=== PATIENT | female | born 2000 | race Caucasian/White ===

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

== ENCOUNTER 2022-01-05 20:41 | Emergency (ER) | payer OTHER, SELFPAY ==
--- NOTE | ~2022-01-05 | XR_ITS ---
EXAMINATION: XR chest 1V portable EXAM DATE: 01/05/2022 21:43 INDICATION: CP TECHNIQUE: Portable AP frontal chest x-ray was obtained. There is no prior study for comparison. FINDINGS: The lungs are clear. There are no pleural effusions. The cardiomediastinal silhouette is within normal limits. There is no pneumothorax suspected. The bones and soft tissues are unremarkab le. IMPRESSION: No acute cardiopulmonary findings. Reviewed, dictated and finalized at location [facility]. E INSPECTOR
[2022-01-05 20:45] VITALS: BP 129/80; PULSE 89; RESP 15; TEMP 36.9; O2SAT 100
--- NOTE | 2022-01-05 21:04 | ECG_ITS ---
Measurements Intervals [place] Rate: 77 P: 48 DC: 146 QRS: 68 QRSD: 80 T: 36 QT: 356 QTc: 404 Interpretive Statements SINUS RHYTHM INCOMPLETE RIGHT BUNDLE BRANCH BLOCK MINIMAL Q WAVES- INF/LAT LEADS BORDERLINE ECG Electronically Signed On 01-06-2022 7:22:54 HR ADMINISTRATOR by Porter Dominguez D.O.
--- NOTE | 2022-01-05 21:12 | ED.GENADULT ---
HPI - General Adult General Chief complaint: Upper Respiratory Infection Stated complaint: headache and chest pain x few days Time Seen by Provider: 01/05/22 20:52 Source: patient, family and RN notes reviewed Mode of arrival: ambulatory Limitations: no limitations History of Present Illness HPI narrative: 21-year-old female presents emerged department for evaluation of an episode of chest pain and shortness of breath that occurred earlier today. Yesterday patient was seen by her primary care physician for upper respiratory complaints and enlarged lymph nodes. No underlying etiology was identified. Patient was negative for strep and Covid at that time. Primary care physician did start the patient on Augmentin. Patient states today that she developed some sternal chest pain. Patient did have some shortness of breath prior to arrival but states that has resolved. Patient states her chest pain has improved. Patient denies any significant past medical history for herself. Related Data Home Medications Medication Instructions Recorded Confirmed PNV 119-iron fum-folic acid tablet PO 12/10/20 12/10/20 [Se--19] Allergies Allergy/AdvReac Type Severity Reaction Status Date / Time pollen AdvReac Unknown sneezing Uncoded 01/05/22 20:50 Review of Systems Review of Systems: CONSTITUTIONAL: Denies fever, chills, or sweats. EYES: Denies visual changes, redness, or discharge. ENT: Cough congestion sore throat CARDIOVASCULAR: Intermittent chest pain and shortness of breath RESPIRATORY: Cough GASTROINTESTINAL: Denies abdominal pain, nausea, vomiting, or diarrhea. GENITOURINARY: Denies dysuria or hematuria. SKIN: Denies rash or itching. MUSCULOSKELETAL: Denies back pain, joint pain, or myalgia. NEUROLOGIC: Denies headache, numbness, or weakness. PMFSH Past Medical History Medical History Healthy female Social History Social History (Updated 12/10/20 @ 12:15 by Grazyna Rodriguez PA-C) Smoking status: Never smoker Alcohol intake: never Substance use: never Gender identity (if verbalized by the patient): Female Sexual Orientation (if Verbalized by the Patient): Straight or Heterosexual Exam Narrative: APPEARANCE: Well appearing, no pain, no distress, well-nourished. HEAD: normocephalic, atraumatic. EYES: PERRLA/EOMI, conjunctivae clear. NOSE: Normal no drainage EARS:TMS clear with good light reflex. THROAT: Pharynx clear, no exudate. NECK: Supple. No adenopathy, no masses. RESPIRATORY: Airway patent, respirations nonlabored. Clear to auscultation bilaterally, no rales, rhonchi, wheezing. CARDIOVASCULAR: Regular rate and rhythm without murmurs rubs or gallops. Reproducible chest wall tenderness to palpation ABDOMINAL: Soft, nontender, nondistended, normal bowel sounds MUSCULOSKELETAL: Moves all extremities. Strength/ROM intact, No edema, No calf tenderness. NEURO: Alert. Cranial nerves II through XII intact. Neurologically intact SKIN: Warm, dry. Normal Color Course Course Emergency Course: Patient did feel improved with treatment. Patient's chest x-ray showed no acute abnormality. Patient's EKG showed normal sinus rhythm with no ST changes. Both patient and parent were updated on the results of the work-up. All questions and concerns were addressed. Vital Signs Vital signs: Vital Signs Temperature 98.4 F 01/05/22 20:45 Pulse Rate 89 01/05/22 20:45 Respiratory Rate 15 01/05/22 20:45 Blood Pressure 129/80 01/05/22 20:45 Pulse Oximetry 100 01/05/22 20:45 Temperature 98.4 F 01/05/22 20:45 Pulse Rate 85 01/05/22 22:10 Respiratory Rate 16 01/05/22 22:10 Blood Pressure 123/75 01/05/22 22:10 Pulse Oximetry 99 01/05/22 22:10 Medical Decision Making Vital Signs Vital Signs: Vital Signs Temperature 98.4 F 01/05/22 20:45 Pulse Rate 89 01/05/22 20:45 Respiratory Rate 15 01/05/22 20:45 Blood Pressure 129
[2022-01-05] MEDS: IBUPROFEN 400 MG TABLET PO (21:44)
[2022-01-05 22:10] VITALS: BP 123/75; PULSE 85; RESP 16; O2SAT 99
[2022-01-07 08:23] LABS: SARS-CoV-2 RNA PCR Negative
== END 2022-01-05 22:10 | disposition home or self-care (01) ==
PROVIDERS: Emergency Provider Emergency Medicine; PCP Pediatrics Adolescent Medicine
DX: J06.9 Acute upper respiratory infection, unspecified (principal); R07.89 Other chest pain; Z20.822 Contact with and (suspected) exposure to COVID-19; I45.10 Unspecified right bundle-branch block
CPT/HCPCS: 71045; 93005; 99283; A9270; C9803; U0003; U0005

== ENCOUNTER 2022-02-05 18:49 | Emergency (ER) | payer OTHER, SELFPAY ==
[2022-02-05 18:58] VITALS: BP 135/72; PULSE 84; RESP 18; TEMP 36; O2SAT 100
--- NOTE | 2022-02-05 18:59 | ED.GENADULT ---
HPI - General Adult General Chief complaint: Upper Respiratory Infection Stated complaint: Head and neck Pain Time Seen by Provider: 02/05/22 18:59 Source: patient and RN notes reviewed Mode of arrival: ambulatory Limitations: no limitations History of Present Illness HPI narrative: 21-year-old female presents to the [facility] with multiple complaints of sinus pain, pressure is been going on for couple weeks. Had been seen on 16 January and was prescribed medication that she said the antibiotics did not improve it. Denies any fevers, chest pain, abdominal pain. States that she has had sore throat with drainage. No cough. Related Data Home Medications Medication Instructions Recorded Confirmed cetirizine 10 mg PO DAILY 02/05/22 02/05/22 promethazine-DM 5 ml PO DIRECTED 02/05/22 02/05/22 Allergies Allergy/AdvReac Type Severity Reaction Status Date / Time pollen AdvReac Unknown sneezing Uncoded 02/05/22 19:02 Review of Systems Review of Systems: All systems reviewed & are unremarkable except as noted in HPI and below Constitutional: Constitutional: Reports no additional constitutional complaints, Denies chills and Denies fever(s) Eyes: Eyes: Reports no additional eye complaints ENT: Reports system reviewed and no additional complaints, except as documented Cardiovascular: Cardiovascular: Reports no additional cardiovascular complaints and Denies chest pain Respiratory: Respiratory: Reports no additional respiratory complaints, Denies cough and Denies dyspnea Gastrointestinal: Gastrointestinal: Reports no additional gastrointestinal complaints, Denies abdominal pain, Denies nausea and Denies vomiting Musculoskeletal: Musculoskeletal: Reports no additional musculoskeletal complaints Integumentary/Breasts: Skin/Breast: Reports system reviewed and no additional complaints, except as docu Neurologic: Reports system reviewed and no additional complaints, except as documented Psychiatric: Psychiatric: Reports no additional psychiatric complaints Allergic/Immunologic: Allergic/Immunologic: Reports no additional allergic/immunologic complaints PMFSH Past Medical History Medical History Healthy female Social History Social History Smoking status: Never smoker Alcohol intake: never Substance use: never Gender identity (if verbalized by the patient): Female Sexual Orientation (if Verbalized by the Patient): Straight or Heterosexual Comments At the time of my signature, I reviewed and agree with the nursing past medical, surgical, social, and family history. There is no relevant family history pertinent to the patient complaint. Exam Const: General: healthy appearing, no acute distress and alert Nutritional Appearance: well nourished Orientation/consciousness: patient oriented x3 Limitations: no limitations HENMT: Head: normal to inspection Ears: external ears normal, TM's normal bilaterally and EAC's normal General nose exam: Abnormal mucous membranes and turbinates present boggy bilateral; not erythematous Face and sinus: normal facial exam Mouth: Yes Normal oral and palatal mucosa present Throat: uvula midline, posterior oropharynx abnormal cobblestoning, postnasal drainage and tonsils absent Eyes: Pupils: Equal, round and reactive pupils present Neck: Neck: normal visual inspection, no lymphadenopathy and no meningeal signs Chest: Chest palpation & inspection: normal inspection of the chest Resp: Effort & Inspection: normal respiratory effort and no use of accessory muscles Auscultation: clear to auscultation bilaterally, no crackles, no rales, no rhonchi and no wheezes Cardio: Rate: regular rate Rhythm: regular rhythm Skin: General skin exam: normal color Rashes: no rashes Wounds: no wounds Neuro: General: patient oriented x3, moves all extremities, no meningeal signs and no fo
== END 2022-02-05 19:15 | disposition home or self-care (01) ==
PROVIDERS: Emergency Provider Nurse Practitioner
DX: J30.2 Other seasonal allergic rhinitis (principal); R09.82 Postnasal drip
CPT/HCPCS: 99213; G0463

== ENCOUNTER 2022-02-25 23:54 | Emergency (ER) | payer OTHER, SELFPAY ==
--- NOTE | ~2022-02-25 | CT_ITS ---
EXAMINATION: CT soft tissue neck chest w EXAM DATE: 02/26/2022 03:06 INDICATION: Lymphadenopathy x1 month TECHNIQUE: Spiral CT of the neck and chest was performed following intravenous injection of 75 mL Omn ipaque 350. Axial, coronal and sagittal images of the neck were reviewed. Axial, coronal and sagitt al images of the chest were reviewed. Coronal maximum intensity pixel images of chest reviewed. The dose-length product (DLP) for this examination was 410.31 mGy-cm. The exposure was tailored accordi ng to patient size (auto mA exposure control), and iterative reconstruction (ASIR) was used as additi onal dose reduction technique. There is no prior study for comparison. FINDINGS: NECK: The thyroid gland is unremarkable. The submandibular and parotid glands are symmetric. The re is no cervical lymphadenopathy. There are no masses identified. The airway is unremarkable. Parapharyngeal and pre-glottic fat planes are preserved. The opacified vasculature is patent. The orbits are unremarkable. Small maxillary sinuses bilaterally, congenital appearance. Left maxillar y sinus nearly completely opacified. There is some frothy appearing material in the right maxillary s inus. Right frontal sinus congenitally absent. Mastoid air cells are well aerated. Cervical spine un remarkable. CHEST: No central pulmonary emboli. The lungs are clear. There are no pleural or pericardial effusi ons. Tracheobronchial tree is patent. There is no mediastinal, hilar or axillary lymphadenopathy. There is no pneumothorax. Heart normal in size. No evidence of coronary arterial calcification . Upper abdomen is unremarkable. There is thoracic spondylosis without osteoblastic or osteolytic lesions identified. IMPRESSION: 1. Maxillary sinus opacity bilaterally. 2. No acute cardiopulmonary findings. Reviewed, dictated and finalized at location A.
--- NOTE | 2022-02-26 00:12 | PC.NURSE ---
Needs vital signs
[2022-02-26 00:37] VITALS: BP 135/79; PULSE 94; RESP 18; TEMP 36.5; O2SAT 100
--- NOTE | 2022-02-26 01:03 | ED.GENADULT ---
HPI - General Adult General Chief complaint: Unspecified <Hansel Mcintosh APRN - Last Filed: 02/26/22 01:26> Stated complaint: swollen lymph nodes x 1 month <Hansel Mcintosh APRN - Last Filed: 02/26/22 01:26> Time Seen by Provider: 02/26/22 00:51 <Hansel Mcintosh APRN - Last Filed: 02/26/22 01:26> History of Present Illness HPI narrative: 21-year-old female presents to the emergency room with complaints of swollen lymph nodes for longer than 4 weeks. Patient states that she has experienced cervical lymphadenopathy for approximately 4 weeks, as well as swollen lymph nodes to her left shoulder, right axillary region, and inguinal area. Patient states that she has been evaluated by her PCP and by urgent care recently. Patient states she has completed 2 courses of antibiotics, and a course of steroids with no resolution of symptoms. Patient complains of recent weight loss and gain over a month, and intermittent fevers. Patient also complains of occasional chest tightness and increased anxiety. <Hansel Mcintosh APRN - Last Filed: 02/26/22 01:26> Related Data Home medications: Home Medications Medication Instructions Recorded Confirmed cetirizine 10 mg PO DAILY 02/05/22 02/05/22 promethazine-DM 5 ml PO DIRECTED 02/05/22 02/05/22 <Hansel Mcintosh APRN - Last Filed: 02/26/22 01:26> Allergies/adverse reactions: Allergies Allergy/AdvReac Type Severity Reaction Status Date / Time pollen AdvReac Unknown sneezing Uncoded 02/26/22 01:24 <Hansel Mcintosh APRN - Last Filed: 02/26/22 01:26> Review of Systems Review of Systems: CONSTITUTIONAL: Denies fever, chills, or sweats. EYES: Denies visual changes, redness, or discharge. ENT: Reports swollen cervical lymphadenopathy CARDIOVASCULAR: Denies chest pain, palpitations, or edema. RESPIRATORY: Denies cough or dyspnea. GASTROINTESTINAL: Denies abdominal pain, nausea, vomiting, or diarrhea. GENITOURINARY: Denies dysuria or hematuria. SKIN: Denies rash or itching. MUSCULOSKELETAL: Denies back pain, joint pain, or myalgia. NEUROLOGIC: Denies headache, numbness, dizziness, or weakness. PSYCHIATRIC: Denies anxiety or depression. <Hansel Mcintosh APRN - Last Filed: 02/26/22 01:26> [facility] Past Medical History Medical History: Medical History Healthy female <Hansel Mcintosh APRN - Last Filed: 02/26/22 01:26> Social History Social History: Social History Smoking status: Never smoker Alcohol intake: never Substance use: never Gender identity (if verbalized by the patient): Female Sexual Orientation (if Verbalized by the Patient): Straight or Heterosexual <Hansel Mcintosh APRN - Last Filed: 02/26/22 01:26> Exam Narrative: GENERAL: Well-appearing, well-nourished, and in no acute distress. HEAD: Normocephalic, atraumatic. EYES: PERRLA and EOMI. ENT: Nares clear, no rhinorrhea or epistaxis. Mucous membranes moist. Oropharynx without tonsillar hypertrophy exudate or other lesions. Bilateral TMs pearly anthony nonbulging NECK: Right posterior cervical lymphadenopathy CHEST: Clear to auscultation. No respiratory distress. No wheezes rales or rhonchi. Left supraclavicular lymphadenopathy HEART: Regular rate and rhythm. No murmur heard. Normal peripheral pulses. ABDOMEN: Soft, nontender, nondistended, normal active bowel sounds. EXTREMITIES: Normal range of motion. No edema. Right axillary lymphadenopathy SKIN: Warm, dry, no rash. NEURO: No focal deficits. Alert and oriented x3. PSYCH: Normal mood and affect. <Hansle Mcintosh APRN - Last Filed: 02/26/22 01:26> Course TRAVEL INSURANCE AGENT/PA Physician Supervision For this patient encounter, I reviewed the TRAVEL INSURANCE AGENT or PA documentation, treatment plan, and medical decision making; and I had [id number] time with this patient. Patient was screened for various causes of her underly
[2022-02-26] MEDS: SODIUM CHLORIDE 0.9% IV 1,000 ML 999 ML IV CONT (01:45)
[2022-02-26 02:01] LABS: Appearance Urine Clear (Clear); Bilirubin Urine Negative (Negative); Blood Urine Negative (Negative); Color Urine Yellow (Yellow); Glucose Urine UA Negative (Negative); Ketones Urine Negative (Negative); Leukocyte Esterase Ur Negative LEU/UL (Negative); Nitrate Urine Negative (Negative); Protein Urine Negative (Negative); Urobilinogen Urine 0.2 mg/dL (<2.0)
[2022-02-26 02:05] LABS: Basophils Percent Auto 0.2 % (0.2-1.2); Eosinophils Percent Auto 0.3 % (0-4.4); Hematocrit 38.8 % (37.0-47.0); Hemoglobin 13.7 g/dL (12.0-15.0); Immature Granulocyte Absolute 0.05 K/mm3 (0.00-0.031); Immature Granulocyte Percent A 0.4 % (0-0.5); Lymphocytes Absolute Auto 2.78 K/mm3 (0.9-3.2); Lymphocytes Percent Auto 21.6 % (18.3-44.2); Mean Corpuscular HGB Conc 35.3 g/dl (32-36); Mean Corpuscular Hemoglobin 38.3 pg (26-34); Mean Corpuscular Volume 108.4 fl (80-100); Mean Platelet Volume 9.9 fl (7.4-10.4); Monocytes Absolute Auto 1.2 K/mm3 (0.1-0.6); Monocytes Percent Auto 8.9 % (2.6-8.5); Neutrophils Absolute Auto 8.8 K/mm3 (1.3-6.7); Neutrophils Percent Auto 68.6 % (45.5-73.1); Platelet Count Result 284 k/mm3 (150-375); Red Blood Count 3.58 M/mm3 (4.2-5.4); Red Cell Distribution Width 11.9 % (11.5-14.5); White Blood Count 12.9 K/mm3 (4.5-10.0)
[2022-02-26 02:13] LABS: Add Urine Microscopic? NO
[2022-02-26 02:26] LABS: Alanine Aminotransferase 13 U/L (4-35); Albumin Level 4.7 g/dL (3.7-5.6); Alkaline Phosphatase 69 U/L (45-116); Anion Gap 8 mmol/L (8-16); Aspartate Amino Transferase 22 U/L (14-36); Bilirubin,Total 0.3 mg/dL (0.2-1.3); Blood Urea Nitrogen 7 mg/dL (8-21); Calcium 8.9 mg/dL (8.9-10.7); Carbon Dioxide 24 mmol/L (22-30); Chloride 105 mmol/L (98-107); Estimated CRCL calculation 119 ml/min; Estimated Glomerular Filt Rate > 60; Glucose 92 mg/dL (65-110); Potassium 3.8 mmol/L (3.4-5.0); Sodium 137 mmol/L (134-143)
[2022-02-26 02:41] LABS: Monoscreen Negative (Negative); Negative Monotest Control Negative (Negative); Positive Monotest Control Positive (Positive)
[2022-02-26 03:18] LABS: Erythrocyte Sedimentation Rate 5 mm/hr (0-20)
[2022-02-26 03:26] VITALS: BP 133/80; PULSE 88; RESP 16; O2SAT 100
--- NOTE | 2022-02-26 03:26 | PC.NURSE ---
Pt requesting a 2nd liter of IV fluids due to lightheadedness. EDP notified, PO fluids given.
[2022-02-28 18:32] LABS: HIV 1 RNA PCR Not Detected Copies/mL; HIV 1 RNA PCR Not Detected Log cps/mL
== END 2022-02-26 05:28 | disposition home or self-care (01) ==
PROVIDERS: Emergency Provider Nurse Practitioner Family; PCP Physician Assistant
DX: R59.9 Enlarged lymph nodes, unspecified (principal)
CPT/HCPCS: 36415; 70491; 71260; 80053; 81003; 81025; 85025; 85652; 86308; 87536; 96360; 96361; 99284; J7030; Q9967

== ENCOUNTER 2022-03-25 21:26 | Emergency (ER) | payer OTHER, SELFPAY ==
--- NOTE | ~2022-03-25 | CT_ITS ---
EXAMINATION: CT soft tissue neck w con DATE: 03/26/2022 02:09 INDICATION: Tonsillar hypertrophy. Lymphadenopathy. TECHNIQUE: Computed tomography (CT) of the neck was performed with 75 mL Omnipaque 300 intravenous co ntrast. Automated exposure control and iterative reconstruction technique were employed. The dose-batsheva gth product was 311.36 mGy-cm. COMPARISON: Neck CT 02/26/2022 FINDINGS: There are nodules in the thyroid measuring up to 5 mm, likely not clinically significant. T here is mild left high internal jugular chain lymphadenopathy. The adenoids and palatine and lingual tonsils are normal. No abscess. The cervical carotid arteries are normal. The mastoid air cells are n ormal. There is mucosal thickening in the maxillary sinuses. There is kyphosis of cervical spine. IMPRESSION: 1. Mild left high internal jugular chain lymphadenopathy, likely reactive. Reviewed, dictated and finalized at location B.
[2022-03-25 21:29] VITALS: BP 144/81; PULSE 83; RESP 18; TEMP 36.5; O2SAT 100
[2022-03-26] MEDS: KETOROLAC 30 MG/ML VIAL (*BKC) IV PUSH (01:05)
[2022-03-26 01:13] LABS: Basophils Percent Auto 0.4 % (0.2-1.2); Eosinophils Absolute Auto 0.1 K/mm3 (0-0.3); Eosinophils Percent Auto 0.7 % (0-4.4); Hematocrit 35.8 % (37.0-47.0); Hemoglobin 12.6 g/dL (12.0-15.0); Immature Granulocyte Absolute 0.01 K/mm3 (0.00-0.031); Immature Granulocyte Percent A 0.1 % (0-0.5); Lymphocytes Absolute Auto 2.48 K/mm3 (0.9-3.2); Lymphocytes Percent Auto 34.3 % (18.3-44.2); Mean Corpuscular HGB Conc 35.2 g/dl (32-36); Mean Corpuscular Hemoglobin 37.5 pg (26-34); Mean Corpuscular Volume 106.5 fl (80-100); Mean Platelet Volume 9.9 fl (7.4-10.4); Monocytes Percent Auto 13.3 % (2.6-8.5); Neutrophils Absolute Auto 3.7 K/mm3 (1.3-6.7); Neutrophils Percent Auto 51.2 % (45.5-73.1); Platelet Count Result 258 k/mm3 (150-375); Red Blood Count 3.36 M/mm3 (4.2-5.4); White Blood Count 7.2 K/mm3 (4.5-10.0)
--- NOTE | 2022-03-26 01:17 | ED.GENADULT ---
HPI - General Adult General Chief complaint: Neck Pain/Injury Stated complaint: swollen lymphnodes Time Seen by Provider: 03/26/22 00:20 Source: patient Mode of arrival: ambulatory Limitations: no limitations History of Present Illness HPI narrative: Patient is 21-year-old female who presents to the ED with report of sore throat and swollen lymph nodes. Patient reports she has been having a sore throat and lymphadenopathy for the past 2 months. Per patient's records, she was seen in the ED on 02/26 at which point she tested negative for HIV, mono, strep. She was having supraclavicular lymphadenopathy at that time and had a CT of her neck/chest performed which did not show any significant findings. Patient reports her lymphadenopathy has continued. She also reports having L tonsillar swelling and a persistent sore throat. She has had chills and intermittent fatigue at home but denies any fever. No abdominal pain, nausea, vomiting, cough, congestion, runny nose. Related Data Home Medications Medication Instructions Recorded Confirmed cetirizine 10 mg PO DAILY 02/05/22 02/05/22 promethazine-DM 5 ml PO DIRECTED 02/05/22 02/05/22 Allergies Allergy/AdvReac Type Severity Reaction Status Date / Time pollen AdvReac Unknown sneezing Uncoded 02/26/22 01:24 Review of Systems Review of Systems: CONSTITUTIONAL: Reports fatigue, chills. Denies fever. ENT: Reports lymphadenopathy, ST, L tonsillar swelling. Denies rhinorrhea, congestion. CARDIOVASCULAR: Denies chest pain. RESPIRATORY: Denies cough or dyspnea. GASTROINTESTINAL: Denies abdominal pain, nausea, vomiting, or diarrhea. All systems reviewed & are unremarkable except as noted in HPI and below PMFSH Past Medical History Medical History (Updated 03/26/22 @ 03:55 by Xenia Willard PA-C) Healthy female Surgical History Surgical History (Updated 03/26/22 @ 01:26 by Xenia Willard PA-C) No pertinent past surgical history Social History Social History Smoking status: Never smoker Alcohol intake: never Substance use: never Gender identity (if verbalized by the patient): Female Sexual Orientation (if Verbalized by the Patient): Straight or Heterosexual Exam Narrative: GENERAL: Well appearing, well-nourished, non-toxic, in no acute distress. HEAD: Normocephalic, atraumatic. EYES: PERRL/EOMI, conjunctivae clear bilaterally. NOSE: Normal, no drainage. THROAT: Pharynx clear, no significant erythema to posterior pharynx. Mild swelling and enlargement of left tonsil. No exudate noted. MMs moist. NECK: Supple. No significant swelling. 1 small enlarged lymph node in right posterior cervical chain. 1 enlarged lymph node in the left lower anterior cervical chain. RESPIRATORY: Airway patent, respirations nonlabored. Clear to auscultation bilaterally, no rales, rhonchi, wheezing. CARDIOVASCULAR: Regular rate and rhythm without murmurs, rubs, or gallops. Radial pulses 2+ and equal bilaterally. MUSCULOSKELETAL: Moves all extremities. Strength/ROM intact without gross deformities or TTP. SKIN: Warm, dry, normal color. No rashes. NEURO: A&O X3. Speech clear. Cranial nerves II-XII grossly intact. Steady gait. No ataxic movements. PSYCHIATRIC: Somewhat flat affect, appropriate mood. Normal interaction. Course Vital Signs Vital signs: Vital Signs Temperature 97.7 F 03/25/22 21: Pulse Rate 83 03/25/22 21: Respiratory Rate 18 03/25/22 21: Blood Pressure 144/81 H 03/25/22 21: Pulse Oximetry 100 03/25/22 21:29 Temperature 97.7 F 03/25/22 21:29 Pulse Rate 83 03/25/22 21:29 Respiratory Rate 18 03/25/22 21:29 Blood Pressure 144/81 H 03/25/22 21: Pulse Oximetry 100 03/25/22 21:29 Medical Decision Making MDM Narrative Medical decision making narrative: Patient presented to ED with 2-month history of cervical lymphadenopathy and more recent sore throat and left tonsillar hype
[2022-03-26 01:27] LABS: Alanine Aminotransferase 11 U/L (6-35); Alkaline Phosphatase 58 U/L (45-116); Anion Gap 6 mmol/L (8-16); Aspartate Amino Transferase 21 U/L (14-36); Bilirubin,Total < 0.1 mg/dL (0.2-1.3); Blood Urea Nitrogen 7 mg/dL (8-21); Calcium 8.7 mg/dL (8.9-10.7); Carbon Dioxide 23 mmol/L (22-30); Chloride 111 mmol/L (98-107); Estimated CRCL calculation 119 ml/min; Estimated Glomerular Filt Rate > 60; Glucose 108 mg/dL (65-110); Potassium 3.5 mmol/L (3.4-5.0); Sodium 140 mmol/L (134-143)
[2022-03-26 02:16] LABS: Monoscreen Negative (Negative); Negative Monotest Control Negative (Negative); Positive Monotest Control Positive (Positive)
[2022-03-26] MEDS: LIDOCAINE HCL 2% VISC SOLN 15 ML UDC PO (04:08)
[2022-03-26 04:16] VITALS: BP 122/67; PULSE 72; RESP 16; O2SAT 98
== END 2022-03-26 04:18 | disposition home or self-care (01) ==
PROVIDERS: Physician Assistant; Emergency Provider General Practice
DX: J35.1 Hypertrophy of tonsils (principal); R59.1 Generalized enlarged lymph nodes
CPT/HCPCS: 36415; 70491; 80053; 81025; 85025; 86308; 87081; 87804; 87880; 96374; 99284; J1885; Q9967

== ENCOUNTER 2022-03-30 02:17 | Emergency (ER) | payer OTHER, SELFPAY ==
[2022-03-30 02:18] VITALS: BP 143/80; PULSE 79; TEMP 36.5; O2SAT 100
--- NOTE | 2022-03-30 03:38 | ED.GENADULT ---
HPI - General Adult General Chief complaint: Unspecified Stated complaint: multiple complaints. Time Seen by Provider: 03/30/22 03:10 Source: patient History of Present Illness HPI narrative: Patient presents with swollen lymph nodes. She reports she had swollen lymph nodes for approximately 3 months she has had multiple evaluations by her primary care doctor and in the ER. She has had multiple courses of antibiotics. She is try to get in to see an ENT doctor but her appointment is scheduled far out. She feels like she is getting worse so she returns ER for further evaluation. For she has had multiple scans but the etiology of symptoms remain unclear. Reports she has a dry throat reports has had intermittent cough and shortness of breath denies any fevers or congestion. Related Data Home Medications Medication Instructions Recorded Confirmed cetirizine 10 mg PO DAILY 02/05/22 02/05/22 promethazine-DM 5 ml PO DIRECTED 02/05/22 02/05/22 Allergies Allergy/AdvReac Type Severity Reaction Status Date / Time pollen AdvReac Unknown sneezing Uncoded 02/26/22 01:24 Review of Systems Review of Systems: CONSTITUTIONAL: Denies fever, chills, or sweats. EYES: Denies visual changes, redness, or discharge. ENT: Throat feels dry. Reports swelling in the neck CARDIOVASCULAR: Denies chest pain, palpitations, or edema. RESPIRATORY: Intermittent shortness of breath and cough GASTROINTESTINAL: Denies abdominal pain, nausea, vomiting, or diarrhea. GENITOURINARY: Denies dysuria or hematuria. SKIN: Denies rash or itching. MUSCULOSKELETAL: Denies back pain, joint pain, or myalgia. NEUROLOGIC: Denies headache, numbness, dizziness, or weakness. PSYCHIATRIC: Denies anxiety or depression. All systems reviewed & are unremarkable except as noted in HPI and below PMFSH Past Medical History Medical History Healthy female Surgical History Surgical History No pertinent past surgical history Social History Social History Smoking status: Never smoker Alcohol intake: never Substance use: never Gender identity (if verbalized by the patient): Female Sexual Orientation (if Verbalized by the Patient): Straight or Heterosexual Exam Narrative: GENERAL: Well-appearing, well-nourished, and in no acute distress. HEAD: Normocephalic, atraumatic. EYES: PERRLA and EOMI. ENT: Nares clear, no rhinorrhea or epistaxis. Mucous membranes moist. No swelling or erythema in the posterior pharynx multiple cervical and supraclavicular lymphadenopathy. NECK: Supple. No masses. No JVD EXTREMITIES: Normal range of motion. No edema. SKIN: Warm, dry, no rash. NEURO: No focal deficits. Alert and oriented x3. PSYCH: Normal mood and affect. Course Vital Signs Vital signs: Vital Signs Temperature 36.5 C 03/30/22 02:18 Pulse Rate 79 03/30/22 02:18 Blood Pressure 143/80 H 03/30/22 02:18 Pulse Oximetry 100 03/30/22 02:18 Temperature 36.5 C 03/30/22 02:18 Pulse Rate 79 03/30/22 02:18 Blood Pressure 143/80 H 03/30/22 02:18 Pulse Oximetry 100 03/30/22 02:18 Medical Decision Making MDM Narrative Medical decision making narrative: H&P as above, vss, pt looks clinically well, exam with lymphadenopathy, prior labs and imaging reviewed and were clinically unremarkable. Given patient's multiple visits to the ER discussed clinical utility of repeat imaging and lab work. Imaging and lab work are unlikely to have changed from recent studies. Patient encouraged to continue in her efforts to be evaluated by specialty provider. Patient is given a directive of ENT doctors in the area. Patient did report some relief of symptoms with short course of steroids will repeat not suspect severe sepsis consider dehydration, airway compromise. return precautions given Vital Signs Vital
--- NOTE | 2022-03-30 04:45 | PC.NURSE ---
Pt noted to have walked out of Ed without discharge paperwork. this nurse then attempted to call the pt and the pt father (with the pt during their stay) to give them telephone discharge paperwork. this nurse received no answer and was unable to leave a voicemail. Pt returned to ED, was given dc paperwork and signed out.
== END 2022-03-30 04:45 | disposition home or self-care (01) ==
PROVIDERS: Emergency Provider Emergency Medicine
DX: R59.1 Generalized enlarged lymph nodes (principal)
CPT/HCPCS: 99283

== ENCOUNTER 2022-04-11 18:04 | Outpatient (CLI) | payer OTHER, SELFPAY ==
--- NOTE | ~2022-04-11 | XR_ITS ---
EXAMINATION: XR chest 2V DATE: 04/11/2022 18:28 INDICATION: Localized mass, swelling, and lump of the neck TECHNIQUE: PA and lateral views of the chest are obtained. COMPARISON: 01/05/2022 FINDINGS: The lungs are free of acute opacities. There is no pleural effusion or pneumothorax. The ca rdiomediastinal silhouette is normal. The visualized bones and soft tissues are unremarkable. IMPRESSION: 1. No acute cardiopulmonary abnormality. Reviewed, dictated and finalized at location F.
== END 2022-04-11 18:05 | disposition home or self-care (01) ==
PROVIDERS: PCP Physician Assistant; Visit Provider Physician Assistant
DX: M79.89 Other specified soft tissue disorders (principal); R22.1 Localized swelling, mass and lump, neck
CPT/HCPCS: 71046

== ENCOUNTER 2022-04-16 09:04 | Outpatient (CLI) | payer OTHER, SELFPAY ==
--- NOTE | ~2022-04-16 | US_ITS ---
EXAMINATION: US biopsy lymph node DATE: 04/16/2022 10:47 INDICATION: Cervical lymphadenopathy. TECHNIQUE: The procedure including the risks, benefits, and alternatives was discussed with the patie nt. Risks discussed included bleeding and infection. The patient understood the risks and agreed to p roceed. The skin overlying the left neck was prepped and draped in usual sterile fashion. Anesthetic was administered with 1% lidocaine subcutaneously. An 18 gauge core biopsy needle was then used to obtain 6 core biopsy specimens under continuous sonographic guidance. The entry site was cleaned and dressed. There were no immediate complications. FINDINGS: Ultrasound images demonstrate the needle in a 2.2 x 0.7 x 1.7 cm left spinal accessory dulce maria n lymph node. IMPRESSION: 1. Ultrasound-guided core needle biopsy of a left spinal accessory chain lymph node. Reviewed, dictated and finalized at location A.
== END 2022-04-16 09:05 | disposition home or self-care (01) ==
PROVIDERS: PCP Physician Assistant; Visit Provider Otolaryngology
DX: R59.1 Generalized enlarged lymph nodes (principal)
CPT/HCPCS: 38505; 76942; 88184; 88305; 88341; 88342

== ENCOUNTER 2022-05-03 02:12 | Day surgery (SDC) | payer OTHER, SELFPAY ==
[2022-04-29 13:57] VITALS: BMI 20.4
--- NOTE | 2022-04-29 14:07 | PC.NURSE ---
Report to the Outpatient Waiting Room, entrance under the green pavilion located off [facility], at time _0930_ on date _04-30-1387_. OR Time: 1130_. - You and your visitor will be asked a series of questions to screen for COVID 19 for your protection. - Only one visitor is allowed at this time. - The patient visitor is requested to leave or wait in car when not with patient. - A mask is required within the hospital. Patients may have clear liquids (water, carbonated beverages, clear teas, apple juice) until 3 hours prior to surgery with a maximum of 20 ounces. - No food from midnight until time of surgery Take the following medications with a SIP of water the morning of surgery: ____None Medications to discontinue per physician All vitamins Date to take last [id number] Please no make-up, nail ukrainian, hairspray, perfume, deodorant, or body powder the day of surgery. No jewelry (including any body piercings) or valuables the day of surgery, leave them at home. Please take a shower or bath the night before, or the morning of, surgery with an antibacterial soap. Wear comfortable, loose fitting clothing. Children are encouraged to wear pajamas. - Jewelry must be removed prior to entering the operating room. Rings and piercings that are not removed may be cut off. - The hospital will not accept responsibility for valuables. - Please leave all valuables, including medications, at home the day of surgery. If you are going home after surgery, a licensed distribution driver must drive you home. - NO public transportation without another adult. - We recommend that an adult stay with you for 24 hours following discharge. - We also recommend that you do not drive, make important decision, drink alcoholic beverages, or take any drugs that were not prescribed by your health care provider for at least 24 hours after your discharge time. Follow any additional instructions given to you from your surgeon. If you or anyone in your household have experienced Covid symptoms in the past week, please notify your surgeon or the nurse liaison at the phone number below for possible testing. Telephone instructions given to ___patient and asked if any additional questions and then verbalized understanding. Patient advised to call surgeon office or pre surgery nurse liaison [phone] if any additional questions.
--- NOTE | 2022-05-02 17:26 | PM.IMHP ---
H&P: HPI History of Present Illness Date/Time: 05/02/22 17:26 Chief Complaint: Chronic sinusitis silent sinus syndrome septal deviation turbinate hypertrophy nasal congestion nasal obstruction neck lymphadenopathy left Narrative: patient presents for planned surgical procedure no change in symptoms change in history. Review of Systems Review of Systems: All systems reviewed & are unremarkable except as noted in HPI and below PMFSH Past Medical History Medical History Healthy female Surgical History Surgical History No pertinent past surgical history Social History Social History Smoking status: Never smoker Alcohol intake: never Substance use: never Living arrangements: with family Gender identity (if verbalized by the patient): Female Sexual Orientation (if Verbalized by the Patient): Straight or Heterosexual Spiritual care concerns: No Meds Home Medications and Allergies Home Medications Medication Instructions Recorded Confirmed Type cetirizine 10 mg tablet 10 mg PO DAILY 02/05/22 04/29/22 History fluticasone propionate 50 2 spray intranasal BID #16 grams 04/01/22 04/29/22 Rx mcg/actuation nasal spray,suspension (Flonase Allergy Relief) cholecalciferol (vitamin D3) 125 125 mcg PO DAILY 04/29/22 04/29/22 History mcg (5,000 unit) tablet (Vitamin D3) cyanocobalamin (vitamin B-12) 1 tablet PO DAILY 04/29/22 04/29/22 History multivitamin 1 tablet PO DAILY 04/29/22 04/29/22 History norelgestromin 150 mcg-e.estradiol 1 patch topical WEEKLY 04/29/22 04/29/22 History 35 mcg/24 hr weekly transderm patch (Xulane) Allergies Allergy/AdvReac Type Severity Reaction Status Date / Time No Known Allergies Allergy Verified 04/29/22 14:28 Exam Narrative: ENT exam normal other than septal deviation turbinate hypertrophy left neck lymphadenopathy Assessment and Plan Assessment and plan (1) Silent sinus syndrome: Code(s): J34.89 - Other specified disorders of nose and nasal sinuses Status: Acute (2) Hypertrophy of both inferior nasal turbinates: Code(s): J34.3 - Hypertrophy of nasal turbinates Status: Acute (3) Nasal septal deviation: Code(s): J34.2 - Deviated nasal septum Status: Acute (4) Nasal obstruction: Code(s): J34.89 - Other specified disorders of nose and nasal sinuses Status: Acute (5) Nasal congestion: Code(s): R09.81 - Nasal congestion Status: Acute (6) Lymphadenopathy of head and neck: Code(s): R59.1 - Generalized enlarged lymph nodes Status: Acute Plan plan OR left neck excisional lymph node biopsy. Will need plastic soft tissue tray. Endoscopic image guided bilateral maxillary antrostomies, septoplasty turbinate reduction. Risks discussed including need for further procedures failure to resolve any symptoms damage to eyes postoperative blurred vision which is common after or after having silent sinus syndrome repair. Bleeding infection change in vision CSF leak brain brain damage septal perforation damage to any structures by myself damage to cranial nerve 11 on the left damage to any structure cell above the clavicles. Damage to any structures during induction and maintenance of anesthesia. Patient voiced understanding and agreed
[2022-05-03] VITALS (9 sets, daily range): BP systolic 124–144; BP diastolic 64–92; PULSE 51–88; RESP 12–16; TEMP 36.4–36.6; O2SAT 100
--- NOTE | 2022-05-03 07:23 | WPDHPUPDATE1 ---
History and Physical Update Update Date/Time: 05/03/22 07:23 History and Physical has been reviewed, including an updated exam of the patient. There are NO changes in the patient's condition. Risks, benefits, and alternatives have been discussed and questions answered. Patient agrees to proceed with procedure.
[2022-05-03] MEDS: ACETAMINOPHEN 500 MG TABLET 1000 MG PO (09:23)
[2022-05-03] MEDS: LACTATED RINGERS 1,000 ML 30 ML IV CONT ×2 (10:01→13:29)
--- NOTE | 2022-05-03 10:05 | WPDANESEPPF ---
Anes - Initial Pre Proc Eval Procedure: Operation Date: 05/03/22 10:30 Proposed Procedures p Image Guided Endoscopic Bilateral Maxillary Antrostomy, Bilateral Inferior Turbinectomy with Outfracture, - Baldo Mitchell MD s Septoplasty, - Baldo Mitchell MD s Excisional Biopsy Enlarged Lymph Node Left Neck - Baldo Mitchell MD Date/Time: 05/03/22 10:05 Surgeon: Baldo Mitchell MD Pre Op Diagnosis: nasal deptal deviation, left enlarged lymph node Patient Data Age: 21 Gender: F Height: 1.55 m Weight: 48.45 kg Last Vital Signs Temp 36.6 C 05/03/22 08:48 Pulse 84 05/03/22 08:48 Resp 16 05/03/22 08:48 BP 125/64 05/03/22 08:48 Pulse Ox 100 05/03/22 08:48 O2 Del Method Room Air 05/03/22 08:48 Allergies Allergy/AdvReac Type Severity Reaction Status Date / Time No Known Allergies Allergy Verified 05/03/22 09:19 Home Medications Medication Instructions Recorded Confirmed Type cetirizine 10 mg tablet 10 mg PO DAILY 02/05/22 05/03/22 History fluticasone propionate 50 2 spray intranasal BID #16 grams 04/01/22 05/03/22 Rx mcg/actuation nasal spray,suspension (Flonase Allergy Relief) cholecalciferol (vitamin D3) 125 125 mcg PO DAILY 04/29/22 05/03/22 History mcg (5,000 unit) tablet (Vitamin D3) cyanocobalamin (vitamin B-12) 1 tablet PO DAILY 04/29/22 05/03/22 History multivitamin 1 tablet PO DAILY 04/29/22 05/03/22 History norelgestromin 150 mcg-e.estradiol 1 patch topical WEEKLY 04/29/22 04/29/22 History 35 mcg/24 hr weekly transderm patch (Xulane) Patient hx anesthesia problems: none Family hx anesthesia problems: none Results Review: All pre-operative results and documents have been reviewed as part of the pre-operative evaluation. [facility] Past Medical History Medical History Healthy female Surgical History Surgical History No pertinent past surgical history Social History Social History Smoking status: Never smoker Alcohol intake: never Substance use: never Living arrangements: with family Gender identity (if verbalized by the patient): Female Sexual Orientation (if Verbalized by the Patient): Straight or Heterosexual Spiritual care concerns: No Anes - Eval Final PreProcedure Day of Procedure 05/03/22 10:05 Patient weight: normal Heart: regular rate and rhythm Lungs: clear to auscultation Airway: Mallampati scale class 1 Neurological: alert and oriented Last oral intake: >/= 8 hours ASA classification: II Emergent: no Anesthetic plan: proceed Anesthesia type and monitoring: general ETT and standard monitoring Results Review: All pre-operative results and documents have been reviewed as part of the pre-operative evaluation. Informed Consent: The patient's anesthetic plan and its attendant risks and benefits were discussed with the patient/family/POA. Questions were solicited and answers provided to the satisfaction of the patient/family/POA.
[2022-05-03] MEDS: ceFAZolin 2 GM/D5W 50 ML 2 GM/50 ML BAG IVPB (11:39)
[2022-05-03] MEDS: MUPIROCIN 2% OINT 22 GM TUBE 1 APPLIC EACH NARE (12:41)
[2022-05-03] MEDS: OXYMETAZOLINE HCL 0.05% NAS 15 ML BTL (*BKC) 1 SPRAY NASAL (12:45)
[2022-05-03] MEDS: LIDO 1%/EPINEPHRINE/PF 1:200,000 30 ML VIAL XX (13:22)
[2022-05-03] MEDS: fentaNYL CITRATE INJ (*CRX) 100 MCG/2 ML VIAL 25 MCG IV PUSH ×2 (14:05→14:08)
--- NOTE | 2022-05-03 14:31 | W.PM.PROC2 ---
Procedure Note - Detailed Date of Procedure 05/03/22 Pre-op Diagnosis nasal deptal deviation, turbinate hypertrophy bilateral maxillary chronic sinusitis silent sinus syndrome left lymphadenopathy which has been persistent over months Post-op Diagnosis Same (No septal deviation) Procedure Performed Bilateral inferior turbinate submucosal reduction resection reduction with outfracture, bilateral image guided maxillary antrostomies, left excisional biopsy of lymph node Surgeon Baldo Mitchell MD Anesthesia General Indications See above Findings Turbinate hypertrophy well reduced following reduction and outfracture, septum was only mildly deviated to the right nonobstructive really. Disease tissue in the bilateral maxillary antrostomies sorry maxillary sinuses of the left was full of purulence which was completely removed. Left neck lymphadenopathy lymph nodes fatty tissue found. Postprocedure left cranial nerve 11 shoulder shrug completely intact patient reports no double vision Description of Procedure Patient identified consent verified. Patient brought operating room. Time-out performed. General anesthesia induced endotracheal tube secured taped left lower lip. Patient prepped and draped for for mentioned procedure. Second time-out performed. 1 cc sorry 2 cc 1% lidocaine 1 100,000 parts epinephrine injected just posterior to SCM where there was lymphadenopathy. 2 cm incision made with 15 blade blunt dissection utilized to fibrofatty lymph node larger than normal although appears normal otherwise. This was removed small bleeding encountered veins venous bleed bipolar electrocautery at a setting of 10 utilized to control the bleeding the wound was then copiously irrigated. The left shoulder did to which although cranial lower cranial nerve 11 was never encountered. Deep layer closed with 4-0 Vicryl skin closed with 5 0 fast gut antibiotic triple antibiotic ointment placed. The patient was then prepped and draped for the sinus portion Afrin-soaked pledgets placed allowed to sit for 5 minutes then removed. Image guidance initiated and confirmed. 0 degree endoscope utilized septum noted to have mild right deviation although not completely obstructing the middle meati I turbinates were outfractured injected with 1% local same as above, in each, bilateral procedure they were reduced with microdebrider with 2 mm inferior turbinate blade and again they were outfractured to confirm really good reduction. Much more patent airway. Maxillary antrostomies were performed with image guidance as her silent sinus type with the orbit at high risk. Or breast sorry sinus was entered no orbital injuries antrostomies performed with straight through cut backbiter double ball tip probe and microdebrider right had some edematous tissue left completely full of purulence this was copiously irrigated because of this will put the patient on antibiotic as well. This marked end of the procedure. Bilateral nasal passages suction of the posterior choana. I performed all dictated portions. Care the patient turned over to Anesthesiology. Blood loss about 25 cc. Of note in PACU patient was not blurry and left shoulder shrug was intact. Estimated Blood Loss 25 Drains No Packing No Pathology Yes Complications No immediate complications Condition Stable Disposition PACU
[2022-05-03] MEDS: oxyCODONE HCL (*CRX) 5 MG TAB IR PO (14:47)
== END 2022-05-03 15:35 | disposition home or self-care (01) ==
PROVIDERS: PCP Physician Assistant; Visit Provider Otolaryngology
PROC: (CPT 31256; principal; 2022-05-03 11:00)
PROC: (CPT 31256; 2022-05-03 11:00)
DX: J32.0 Chronic maxillary sinusitis (principal); J34.2 Deviated nasal septum; J34.3 Hypertrophy of nasal turbinates; J34.89 Other specified disorders of nose and nasal sinuses; R09.81 Nasal congestion; R59.1 Generalized enlarged lymph nodes
CPT/HCPCS: 31256; 61782; 30140; 38510; 88184; 88305; A9270; J0330; J0690; J1100; J2250; J2405; J2704; J3010; J7120

== ENCOUNTER 2022-06-28 00:23 | Day surgery (SDC) | payer OTHER, SELFPAY ==
--- NOTE | 2022-06-25 13:11 | PC.NURSE ---
Report to the Outpatient Waiting Room, entrance under the green pavilion located off [facility], at time _0730_ on date _[id number]_. OR Time: _0930_. - You and your visitor will be asked to self-screen and do not enter if you have any COVID symptoms. - Only one visitor and NO children visitors are allowed at this time. - The patient visitor is requested to leave or wait in car when not with patient due to restrictions. - A mask is required within the hospital. Patients may have clear liquids (water, carbonated beverages, clear teas, apple juice) until 3 hours prior to surgery with a maximum of 20 ounces. - No food from midnight until time of surgery Take the following medications with a SIP of water the morning of surgery: None Medications to discontinue per physician ___Vitamin B-12 Date to take last dose__Stop today. Please no make-up, nail azeri, hairspray, perfume, deodorant, or body powder the day of surgery. No jewelry (including any body piercings) or valuables the day of surgery, leave them at home. Please take a shower or bath the night before, or the morning of, surgery with an antibacterial soap. Wear comfortable, loose fitting clothing. - Jewelry must be removed prior to entering the operating room. Rings and piercings that are not removed may be cut off. - The hospital will not accept responsibility for valuables. - Please leave all valuables, including medications, at home the day of surgery. If you are going home after surgery, a licensed [employer] driver must drive you home. - NO public transportation without another adult. - We recommend that an adult stay with you for 24 hours following discharge. - We also recommend that you do not drive, make important decision, drink alcoholic beverages, or take any drugs that were not prescribed by your health care provider for at least 24 hours after your discharge time. Follow any additional instructions given to you from your surgeon. If you or anyone in your household have experienced Covid symptoms in the past week, please notify your surgeon or the nurse liaison at the phone number below for possible testing. Telephone instructions given to __Patient___and asked if any additional questions and then verbalized understanding. Patient advised to call surgeon office or pre surgery nurse liaison [phone] if any additional questions.
--- NOTE | 2022-06-26 16:05 | PM.IMHP ---
H&P: HPI History of Present Illness Date/Time: 06/26/22 16:05 Chief Complaint: Recurrent tonsillitis chronic tonsillitis Narrative: planned surgical procedure Review of Systems Review of Systems: All systems reviewed & are unremarkable except as noted in HPI and below PMFSH Past Medical History Medical History Healthy female Surgical History Surgical History No pertinent past surgical history Social History Social History Smoking status: Never smoker Alcohol intake: never Substance use: never Gender identity (if verbalized by the patient): Female Sexual Orientation (if Verbalized by the Patient): Straight or Heterosexual Spiritual care concerns: No Meds Home Medications and Allergies Home Medications Medication Instructions Recorded Confirmed Type cetirizine 10 mg tablet 10 mg PO DAILY 02/05/22 05/29/22 History fluticasone propionate 50 2 spray intranasal BID #16 grams 04/01/22 05/29/22 Rx mcg/actuation nasal spray,suspension (Flonase Allergy Relief) cholecalciferol (vitamin D3) 125 125 mcg PO DAILY 04/29/22 05/29/22 History mcg (5,000 unit) tablet (Vitamin D3) cyanocobalamin (vitamin B-12) 1 tablet PO DAILY 04/29/22 06/25/22 History multivitamin 1 tablet PO DAILY 04/29/22 05/29/22 History norelgestromin 150 mcg-e.estradiol 1 patch topical WEEKLY 04/29/22 06/25/22 History 35 mcg/24 hr weekly transderm patch (Xulane) mupirocin 2 % topical ointment 1 applic topical BID #22 grams 05/14/22 05/29/22 Rx amoxicillin 875 mg-potassium 1 tablet PO BID #14 tabs 06/13/22 Rx clavulanate 125 mg tablet prednisone 5 mg tablet See Rx Instructions PO DAILY #11 06/13/22 Rx tabs Allergies Allergy/AdvReac Type Severity Reaction Status Date / Time No Known Allergies Allergy Verified 06/25/22 13:03 Exam Narrative: chronic appearing tonsils Assessment and Plan Assessment and plan (1) Halitosis: Code(s): R19.6 - Halitosis Status: Acute Assessment and Plan: plan operating room for tonsillectomy. Risks discussed including 3-5% chance of postoperative bleeding pain damage to any structure involved in surgery numbness coughing ear pain throat pain need for postoperative pain medication damage to any structure involved during the maintenance Dinesh initiation of anesthesia. (2) Tonsil stone: Code(s): J35.8 - Other chronic diseases of tonsils and adenoids Status: Acute (3) Recurrent tonsillitis: Code(s): J03.91 - Acute recurrent tonsillitis, unspecified Status: Acute
--- NOTE | 2022-06-27 13:53 | P.PNAN_ITS ---
Anes - Initial Pre Proc Eval Procedure: Operation Date: 06/28/22 09:30 Proposed Procedures p Tonsillectomy - Baldo Mitchell MD Date/Time: 06/27/22 13:53 Surgeon: Baldo Mitchell MD Pre Op Diagnosis: Chronic Tonsillitis Patient Data Age: 22 Gender: F Height: 1.55 m Weight: 48.1 kg Allergies Allergy/AdvReac Type Severity Reaction Status Date / Time No Known Allergies Allergy Verified 06/28/22 08:01 Home Medications Medication Instructions Recorded Confirmed Type cetirizine 10 mg tablet 10 mg PO DAILY 02/05/22 05/29/22 History fluticasone propionate 50 2 spray intranasal BID #16 grams 04/01/22 05/29/22 Rx mcg/actuation nasal spray,suspension (Flonase Allergy Relief) cholecalciferol (vitamin D3) 125 125 mcg PO DAILY 04/29/22 05/29/22 History mcg (5,000 unit) tablet (Vitamin D3) cyanocobalamin (vitamin B-12) 1 tablet PO DAILY 04/29/22 06/25/22 History multivitamin 1 tablet PO DAILY 04/29/22 05/29/22 History norelgestromin 150 mcg-e.estradiol 1 patch topical WEEKLY 04/29/22 06/25/22 History 35 mcg/24 hr weekly transderm patch (Xulane) mupirocin 2 % topical ointment 1 applic topical BID #22 grams 05/14/22 05/29/22 Rx amoxicillin 875 mg-potassium 1 tablet PO BID #14 tabs 06/13/22 Rx clavulanate 125 mg tablet prednisone 5 mg tablet See Rx Instructions PO DAILY #11 06/13/22 Rx tabs Patient hx anesthesia problems: none Family hx anesthesia problems: none Results Review: All pre-operative results and documents have been reviewed as part of the pre- operative evaluation. [facility] Past Medical History Medical History (Updated 06/27/22 @ 13:54 by Morris Shaw DO) Anxiety PTSD (post-traumatic stress disorder) Surgical History Surgical History No pertinent past surgical history Social History Social History Smoking status: Never smoker Alcohol intake: never Substance use: never Living arrangements: with family Gender identity (if verbalized by the patient): Female Sexual Orientation (if Verbalized by the Patient): Straight or Heterosexual Spiritual care concerns: No Anes - Eval Final PreProcedure Day of Procedure 06/27/22 13:53 Patient weight: normal Heart: regular rate and rhythm Lungs: clear to auscultation Airway: Mallampati scale class II Neurological: alert and oriented Last oral intake: >/= 8 hours ASA classification: II Emergent: no Anesthetic plan: proceed Anesthesia type and monitoring: general ETT and standard monitoring Results Review: All pre-operative results and documents have been reviewed as part of the pre- operative evaluation. Informed Consent: The patient's anesthetic plan and its attendant risks and benefits were discussed with the patient/family/POA. Questions were solicited and answers provided to the satisfaction of the patient/family/POA.
[2022-06-28] VITALS (8 sets, daily range): BP systolic 122–141; BP diastolic 69–85; PULSE 60–96; RESP 14–24; TEMP 36.2–36.6; O2SAT 99–100
--- NOTE | 2022-06-28 07:09 | WPDHPUPDATE1 ---
History and Physical Update Update Date/Time: 06/28/22 07:09 History and Physical has been reviewed, including an updated exam of the patient. There are NO changes in the patient's condition. Risks, benefits, and alternatives have been discussed and questions answered. Patient agrees to proceed with procedure.
[2022-06-28] MEDS: ACETAMINOPHEN 500 MG TABLET 1000 MG PO (08:14)
--- NOTE | 2022-06-28 08:20 | WPDHPUPDATE1 ---
History and Physical Update Update Date/Time: 06/28/22 08:20 Update, add possible adenoidectomy and nasal endoscopy. Risks discussed, patient voiced understanding.
[2022-06-28] MEDS: LACTATED RINGERS 1,000 ML 30 ML IV CONT (08:43)
--- NOTE | 2022-06-28 10:26 | W.PM.PROC2 ---
Procedure Note - Detailed Date of Procedure 06/28/22 Pre-op Diagnosis Chronic Tonsillitis, recurrent tonsillitis, recurrent adenoiditis, history of sinus surgery Post-op Diagnosis Same Procedure Performed nasal endoscopy, adenoidectomy, tonsillectomy Surgeon Baldo Mitchell MD Anesthesia General Indications see above Findings normal sinonasal passages patent, chronic appearing tonsils cryptic 1 adenoid from abnormal appearing Description of Procedure patient identified consent verified. Patient brought operating. Time-out performed. General anesthesia induced endotracheal tube secured. Patient prepped and draped bed positioned and moved. Second time-out performed. 0 degree endoscope utilized to be the bilateral nasal passages patent postoperative sinus cavities. McIvor mouth gag inserted to reveal tonsils described above. This was a bilateral procedure. There were dissected in the extracapsular plane using Bovie electrocautery setting of 10. There was no bleeding any bleeding would have been controlled with Bovie suction electrocautery at a setting of 12. Some vessels were preemptively cauterized should they bleed postoperatively order prevent postoperative bleeding. McIvor mouth gag was lowered she is allowed to sit for 30 seconds McIvor mouthgag gag was reopened there was no bleeding. Red rubber catheter inserted suspended which suspended the soft palate anteriorly mirror utilized there is 1 abnormal appearing adenoid for on which was quite large this was bovied with suction Bovie electrocautery at a setting of 30. Red rubber catheter were removed again there is no bleeding. Blood loss less than 1 cc McIvor mouth gag removed. I performed all dictated portions care the patient given Anesthesiology there are no complications patient taken to PACU. Estimated Blood Loss -1.0 Drains No Packing No Pathology Yes Complications No immediate complications Condition Stable Disposition PACU
[2022-06-28] MEDS: oxyCODONE HCL (*CRX) 5 MG TAB IR PO (11:20)
== END 2022-06-28 12:18 | disposition home or self-care (01) ==
PROVIDERS: PCP Physician Assistant; Visit Provider Otolaryngology
PROC: (CPT 42821; principal; 2022-06-28 09:30)
DX: J35.8 Other chronic diseases of tonsils and adenoids (principal); J35.03 Chronic tonsillitis and adenoiditis; J03.91 Acute recurrent tonsillitis, unspecified; R19.6 Halitosis; F41.9 Anxiety disorder, unspecified; F43.10 Post-traumatic stress disorder, unspecified
CPT/HCPCS: 42821; 36415; 42960; 85025; 88302; 99283; A9270; J0330; J1100; J1170; J2250; J2405; J2704; J3010; J7120

== ENCOUNTER 2022-06-28 23:42 | Emergency (ER) | payer OTHER, SELFPAY ==
[2022-06-28 23:45] VITALS: BP 119/57; PULSE 84; RESP 18; TEMP 36.6; O2SAT 100
[2022-06-29 00:03] LABS: Basophils Percent Auto 0.1 % (0.2-1.2); Hematocrit 40.4 % (37.0-47.0); Hemoglobin 14.3 g/dL (12.0-15.0); Immature Granulocyte Absolute 0.05 K/mm3 (0.00-0.031); Immature Granulocyte Percent A 0.3 % (0-0.5); Lymphocytes Absolute Auto 1.46 K/mm3 (0.9-3.2); Lymphocytes Percent Auto 9.4 % (18.3-44.2); Mean Corpuscular HGB Conc 35.4 g/dl (32-36); Mean Corpuscular Hemoglobin 35.3 pg (26-34); Mean Corpuscular Volume 99.8 fl (80-100); Mean Platelet Volume 10.1 fl (7.4-10.4); Monocytes Percent Auto 6.6 % (2.6-8.5); Neutrophils Absolute Auto 13.1 K/mm3 (1.3-6.7); Neutrophils Percent Auto 83.6 % (45.5-73.1); Platelet Count Result 273 k/mm3 (150-375); Red Blood Count 4.05 M/mm3 (4.2-5.4); Red Cell Distribution Width 12.8 % (11.5-14.5); White Blood Count 15.6 K/mm3 (4.5-10.0)
--- NOTE | 2022-06-29 00:22 | ED.GENADULT ---
HPI - General Adult General Chief complaint: Unspecified Stated complaint: post op bleeding after T&A Time Seen by Provider: 06/28/22 23:51 Source: RN notes reviewed History of Present Illness HPI narrative: Patient presents emergency department from home for bleeding. Patient had her tonsils removed today by Dr. Mitchell states that just prior to arrival she began to have some bleeding from her surgical site she called Dr. Mitchell at that time and is recommended come the ER for further evaluation patient spitting up blood in the ER but notes no massive bleeding she denies any lightheadedness or dizziness denies any other symptoms Related Data Home Medications Medication Instructions Recorded Confirmed cetirizine 10 mg tablet 10 mg PO DAILY 02/05/22 06/28/22 cholecalciferol (vitamin D3) 125 125 mcg PO DAILY 04/29/22 06/28/22 mcg (5,000 unit) tablet (Vitamin D3) cyanocobalamin (vitamin B-12) 1 tablet PO DAILY 04/29/22 06/25/22 multivitamin 1 tablet PO DAILY 04/29/22 06/28/22 norelgestromin 150 mcg-e.estradiol 1 patch topical WEEKLY 04/29/22 06/28/22 35 mcg/24 hr weekly transderm patch (Xulane) Allergies Allergy/AdvReac Type Severity Reaction Status Date / Time No Known Allergies Allergy Verified 06/28/22 08:01 Review of Systems Review of Systems: Gen.: Denies fevers or chills Eyes see HPI Respiratory: Denies shortness of breath or cough CV: Denies chest pain or palpitations GI: Denies abdominal pain nausea, emesis Musculoskeletal: Denies back pain or muscle pain Neuro: Denies headache or weakness Skin: Denies rash Except as documented, all other systems reviewed and negative [facility] Past Medical History Medical History Anxiety PTSD (post-traumatic stress disorder) Surgical History Surgical History (Updated 06/29/22 @ 00:36 by Julio C Ji DO) No pertinent past surgical history S/P tonsillectomy Social History Social History Smoking status: Never smoker Alcohol intake: never Substance use: never Gender identity (if verbalized by the patient): Female Sexual Orientation (if Verbalized by the Patient): Straight or Heterosexual Spiritual care concerns: No Exam Narrative: APPEARANCE: No acute distress, nontoxic, resting in bed EYES: EOMI HEENT: Normocephalic, atraumatic, OMM posterior pharynx with postoperative changes present there is mild oozing from the left posterior tonsillar region airway patent tolerating own secretions RESPIRATORY: No respiratory distress MUSCULOSKELETAl: Moves all extremities. No clubbing, cyanosis or edema. NEURO: Awake and alert. Following commands, speech normal, no focal deficits SKIN:: Warm, dry. No rashes lesions or abrasions PSYCHIATRIC: Normal affect/mood, Course Course Emergency Course: Dr. Mitchell called on the waiting to see patient Dr Mitchell here at this time states that she may be discharged follow-up as an outpatient Discussed with patient results of workup and diagnosis. Discussed need for follow-up with primary care, proper use of medication, and reasons to return to the emergency department. Patient understands and agrees to current treatment plan Vital Signs Vital signs: Vital Signs Temperature 97.8 F 06/28/22 23:45 Pulse Rate 84 06/28/22 23:45 Respiratory Rate 18 06/28/22 23:45 Blood Pressure 119/57 L 06/28/22 23:45 Pulse Oximetry 100 06/28/22 23:45 Oxygen Delivery Room Air 06/28/22 23:45 Temperature 97.8 F 06/28/22 23:45 Pulse Rate 69 06/29/22 00:31 Respiratory Rate 17 06/29/22 00:31 Blood Pressure 118/52 L 06/29/22 00:31 Pulse Oximetry 98 06/29/22 00:31 Oxygen Delivery Room Air 06/28/22 23:45 Medical Decision Making Vital Signs Vital Signs: Vital Signs Temperature 97.8 F 06/28/22 23:45 Pulse Rate 84 06/28/22 23:45 Respiratory Rate 18 06/28/22 23:45
--- NOTE | 2022-06-29 00:25 | WPDCN ---
Assessment and Plan Assessment and plan (1) Postoperative hemorrhage of tonsil: Status: Acute Assessment and Plan: No active bleeding identified. Possible culprit regions cauterized. Should it be the adenoid pad, afrin two large squirts two times per day for two days. Call with any bleeding that does not stop. Patient voiced understaning and agreed. HPI Data of Consult Date/Time: 06/29/22 00:25 Primary Care Provider: Ronal Jane, PA Consult Narrative Reason for consult: Post operative hemorrhage Narrative: Marce Fan is a 22 year old female s/p T and A this afternoon. Reports coughing up clots. Presents for further evaluation and treatment. Review of Systems Review of Systems: All systems reviewed & are unremarkable except as noted in HPI and below PMFSH Past Medical History Medical History (Updated 06/29/22 @ 00:23 by Julio C Ji DO) Anxiety PTSD (post-traumatic stress disorder) Surgical History Surgical History No pertinent past surgical history Social History Social History Smoking status: Never smoker Alcohol intake: never Substance use: never Gender identity (if verbalized by the patient): Female Sexual Orientation (if Verbalized by the Patient): Straight or Heterosexual Spiritual care concerns: No Meds Home Medications and Allergies Home Medications Medication Instructions Recorded Confirmed Type cetirizine 10 mg tablet 10 mg PO DAILY 02/05/22 06/28/22 History fluticasone propionate 50 2 spray intranasal BID #16 grams 04/01/22 06/28/22 Rx mcg/actuation nasal spray,suspension (Flonase Allergy Relief) cholecalciferol (vitamin D3) 125 125 mcg PO DAILY 04/29/22 06/28/22 History mcg (5,000 unit) tablet (Vitamin D3) cyanocobalamin (vitamin B-12) 1 tablet PO DAILY 04/29/22 06/25/22 History multivitamin 1 tablet PO DAILY 04/29/22 06/28/22 History norelgestromin 150 mcg-e.estradiol 1 patch topical WEEKLY 04/29/22 06/28/22 History 35 mcg/24 hr weekly transderm patch (Xulane) oxycodone 5 mg tablet 5 mg PO .[id number] PRN pain #21 tabs 06/28/22 Rx Allergies Allergy/AdvReac Type Severity Reaction Status Date / Time No Known Allergies Allergy Verified 06/28/22 08:01 Vital Signs Vital Signs - 24 hr 06/28/22 23:45 Temperature 36.6 C Pulse Rate 84 Respiratory Rate 18 Blood Pressure 119/57 L Pulse Oximetry 100 Oxygen Delivery Room Air Exam Narrative: No active bleeding. small areas bilaterally with potential stigmata of recent bleed. Cetacaine applied to the bilateral tonsillar fossa. One area each side cauterized with silver nitrate. right upper most likely culprit area. No complications. Results Labs CBC & Chem 7: 06/28/22 23:59 Labs: Short CBC 06/28/22 Range/Units 23:59 WBC 15.6 H (4.5-10.0) K/mm3 Hgb 14.3 (12.0-15.0) g/dL Hct 40.4 (37.0-47.0) % Plt Count 273 (150-375) k/mm3
[2022-06-29 00:31] VITALS: BP 118/52; PULSE 69; RESP 17; O2SAT 98
== END 2022-06-29 00:33 | disposition home or self-care (01) ==
PROVIDERS: Emergency Provider Emergency Medicine; PCP Physician Assistant
DX: J95.830 Postprocedural hemorrhage of a respiratory system organ or structure following a respiratory system procedure (principal); Y83.8 Other surgical procedures as the cause of abnormal reaction of the patient, or of later complication, without mention of misadventure at the time of the procedure; F41.9 Anxiety disorder, unspecified; F43.10 Post-traumatic stress disorder, unspecified
CPT/HCPCS: 36415; 42960; 85025; 99283; A9270

== ENCOUNTER 2023-01-31 09:22 | Emergency (ER) | payer OTHER, SELFPAY ==
[2023-01-31 09:30] VITALS: BP 140/81; PULSE 79; RESP 16; TEMP 37.2; O2SAT 99
--- NOTE | 2023-01-31 09:54 | ED.SKABFB ---
HPI - Skin/Abscess/Foreign Bdy General Chief complaint: Skin/Abscess/Foreign Body Stated complaint: Rash on sides of neck; left ear pain Time Seen by Provider: 01/31/23 09:54 Source: patient Mode of arrival: ambulatory Limitations: no limitations History of Present Illness HPI narrative: 22-year-old female presents with rash to neck for the past several weeks that she reports is itchy. Is using [id number] hydrocortisone with no relief. Also reports pain to left ear for the past days. Reports lymph nodes surrounding ear have been enlarged. No other complaints today. All systems reviewed and negative except as noted above. Related Data Home Medications Medication Instructions Recorded Confirmed cetirizine 10 mg tablet 10 mg PO DAILY 02/05/22 01/31/23 cholecalciferol (vitamin D3) 125 125 mcg PO DAILY 04/29/22 01/31/23 mcg (5,000 unit) tablet (Vitamin D3) cyanocobalamin (vitamin B-12) 1 tablet PO DAILY 04/29/22 01/31/23 multivitamin 1 tablet PO DAILY 04/29/22 01/31/23 norelgestromin 150 mcg-e.estradiol 1 patch topical WEEKLY 04/29/22 01/31/23 35 mcg/24 hr weekly transderm patch (Xulane) Allergies Allergy/AdvReac Type Severity Reaction Status Date / Time No Known Allergies Allergy Verified 01/31/23 10:04 Review of Systems Review of Systems: CONSTITUTIONAL: Denies fever, chills, or sweats. EYES: Denies visual changes, redness, or discharge. ENT: Denies rhinorrhea, congestion, sore throat . Reports left ear pain. CARDIOVASCULAR: Denies chest pain, palpitations, or edema. RESPIRATORY: Denies cough or dyspnea. GASTROINTESTINAL: Denies abdominal pain, nausea, vomiting, or diarrhea. GENITOURINARY: Denies dysuria or hematuria. SKIN: Reports itchy rash to neck. MUSCULOSKELETAL: Denies back pain, joint pain, or myalgia. NEUROLOGIC: Denies headache, numbness, or weakness. PSYCHIATRIC: Denies anxiety or depression. All other systems reviewed are negative, except as documented in HPI. [facility] Past Medical History Medical History (Updated 01/31/23 @ 10:22 by Celeste Dean NP) Anxiety PTSD (post-traumatic stress disorder) Surgical History Surgical History (Updated 06/29/22 @ 00:36 by Julio C Ji DO) No pertinent past surgical history S/P tonsillectomy Social History Social History Smoking status: Never smoker Alcohol intake: never Substance use: never Living arrangements: with family Occupation/Education: student Gender identity (if verbalized by the patient): Female Sexual Orientation (if Verbalized by the Patient): Straight or Heterosexual Spiritual care concerns: No Comments At time of signature, agree with nursing past medical, surgical, social and family history. There is no relevant family history pertinent to the presenting complaint. Exam Narrative: GENERAL: This is a well-nourished, well-developed patient, in no apparent distress. HEAD: normocephalic, atraumatic. EYES: PERRL. Sclera clear/white. Vision is grossly intact. EARS: External ears normal, auditory canals clear and without drainage . Fluid to bilateral TMs, worse to left TM. No perforation. NOSE: External nose normal NECK: Neck supple, non-tender without lymphadenopathy, masses or thyromegaly. CARDIOVASCULAR: Regular rate and rhythm without murmurs, gallops, or rubs. RESPIRATORY: Clear to auscultation. Breath sounds equal bilaterally. No wheezes, rales, or rhonchi. SKIN: warm, Dry, intact with, good texture and turgor. Erythematous, scaly circular lesions to posterior neck. No raised border concerning for ringworm. NEURO: awake, alert, and oriented to person, place and time. There were no obvious focal neurologic abnormalities. EXTREMITIES: No joint tenderness, effusion, or edema noted. Course Course Level of Care: Express Care Visit Vital Signs Vital signs: Vital Signs Temperature 37.2 C 01/31/23 09:30 Pulse R
== END 2023-01-31 10:14 | disposition home or self-care (01) ==
PROVIDERS: Emergency Provider Nurse Practitioner Family; PCP Otolaryngology
DX: H65.02 Acute serous otitis media, left ear (principal); L30.0 Nummular dermatitis
CPT/HCPCS: 99213; G0463

== ENCOUNTER 2023-06-23 18:08 | Emergency (ER) | payer OTHER, SELFPAY ==
[2023-06-23 18:54] VITALS: BP 129/81; PULSE 89; RESP 16; TEMP 36.7; O2SAT 100
--- NOTE | 2023-06-23 21:20 | ED.UPPEXIN ---
HPI - Extremity Injury (Upper) General Chief Complaint: Extremity Injury, Upper Stated Complaint: R arm pain/unable to extend Time Seen by Provider: 06/23/23 20:45 History of Present Illness HPI narrative: Patient is a 23-year-old female presenting with right elbow pain. Patient states that she has been having right elbow pain for the last several days and is having difficulty moving it. States that it feels stiff and her range of motion is limited. She was seen at urgent care yesterday and x-rays were negative for fracture. She was started on antibiotics and steroids. States that she continues to have difficulty moving it. Denies recent injuries. Denies numbness, weakness, fevers. Denies further complaints. Related Data Home Medications Medication Instructions Recorded Confirmed cetirizine 10 mg tablet 10 mg PO DAILY 02/05/22 01/31/23 cholecalciferol (vitamin D3) 125 125 mcg PO DAILY 04/29/22 01/31/23 mcg (5,000 unit) tablet (Vitamin D3) cyanocobalamin (vitamin B-12) 1 tablet PO DAILY 04/29/22 01/31/23 multivitamin 1 tablet PO DAILY 04/29/22 01/31/23 norelgestromin 150 mcg-e.estradiol 1 patch topical WEEKLY 04/29/22 01/31/23 35 mcg/24 hr weekly transderm patch (Xulane) Allergies Allergy/AdvReac Type Severity Reaction Status Date / Time No Known Allergies Allergy Verified 01/31/23 10:04 Review of Systems Review of Systems: All systems reviewed & are unremarkable except as noted in HPI and below PMFSH Past Medical History Medical History Anxiety PTSD (post-traumatic stress disorder) Surgical History Surgical History No pertinent past surgical history S/P tonsillectomy Social History Social History Smoking status: Never smoker Alcohol intake: never Substance use: never Living arrangements: with family Occupation/Education: student Gender identity (if verbalized by the patient): Female Sexual Orientation (if Verbalized by the Patient): Straight or Heterosexual Spiritual care concerns: No Exam Narrative: GENERAL: Well-appearing, well-nourished, and in no acute distress. HEAD: Normocephalic, atraumatic. EYES: PERRLA and EOMI. ENT: Nares clear, no rhinorrhea or epistaxis. Mucous membranes moist. NECK: Supple. CHEST: No respiratory distress. HEART: Regular rate and rhythm. Normal peripheral pulses. ABDOMEN: Soft, nontender, nondistended, normal active bowel sounds. EXTREMITIES: R elbow diffusely tender, no edema or erythema, passive ROM intact, active ROM limited 2/2 pain and popping sensation ; neurovascularly intact SKIN: Warm, dry, no rash. NEURO: No focal deficits. Alert and oriented x3. PSYCH: Normal mood and affect. Course Vital Signs Vital signs: Vital Signs Temperature 98.0 F 06/23/23 18:54 Pulse Rate 89 06/23/23 18:54 Respiratory Rate 16 06/23/23 18:54 Blood Pressure 129/81 06/23/23 18:54 Pulse Oximetry 100 06/23/23 18:54 Temperature 98.0 F 06/23/23 18:54 Pulse Rate 80 06/23/23 21:35 Respiratory Rate 16 06/23/23 21:35 Blood Pressure 122/79 06/23/23 21:35 Pulse Oximetry 100 06/23/23 21:35 MDM - Extremity Injury (Upper) MDM Narrative Medical decision making narrative: Patient is a 23-year-old female presenting with several days of right elbow pain and tightness. Vitals are stable. Exam remarkable for the above. There is no evidence of infection or trauma. She is neurovascularly intact. She is already on antibiotics and steroids. States that she has already had negative imaging. Do not feel that further emergent work-up is warranted at this time. Advised that she follow-up with orthopedic surgery as well as primary care. We will provide the phone numbers for both. Appropriate return precautions were given. Patient voices understanding
[2023-06-23 21:35] VITALS: BP 122/79; PULSE 80; RESP 16; O2SAT 100
== END 2023-06-23 21:40 | disposition home or self-care (01) ==
PROVIDERS: Emergency Provider Emergency Medicine
DX: M25.521 Pain in right elbow (principal); R29.898 Other symptoms and signs involving the musculoskeletal system
CPT/HCPCS: 99281

== ENCOUNTER 2023-07-23 08:11 | Outpatient (CLI) | payer OTHER, SELFPAY ==
[2023-07-23 09:40] LABS: Basophils Percent Auto 0.5 % (0.2-1.2); Eosinophils Absolute Auto 0.1 K/mm3 (0-0.3); Eosinophils Percent Auto 1.2 % (0-4.4); Hemoglobin 12.3 g/dL (12.0-15.0); Immature Granulocyte Absolute 0.02 K/mm3 (0.00-0.031); Immature Granulocyte Percent A 0.2 % (0-0.5); Lymphocytes Absolute Auto 3.94 K/mm3 (0.9-3.2); Lymphocytes Percent Auto 44.4 % (18.3-44.2); Mean Corpuscular HGB Conc 34.2 g/dl (32-36); Mean Corpuscular Hemoglobin 34.3 pg (26-34); Mean Corpuscular Volume 100.3 fl (80-100); Monocytes Absolute Auto 0.9 K/mm3 (0.1-0.6); Monocytes Percent Auto 9.8 % (2.6-8.5); Neutrophils Absolute Auto 3.9 K/mm3 (1.3-6.7); Neutrophils Percent Auto 43.9 % (45.5-73.1); Platelet Count Result 239 k/mm3 (150-375); Red Blood Count 3.59 M/mm3 (4.2-5.4); Red Cell Distribution Width 12.4 % (11.5-14.5); White Blood Count 8.9 K/mm3 (4.5-10.0)
[2023-07-23 09:48] LABS: Alanine Aminotransferase 14 U/L (6-35); Albumin Level 4.4 g/dL (3.5-5.1); Alkaline Phosphatase 60 U/L (38-126); Anion Gap 7 mmol/L (8-16); Aspartate Amino Transferase 22 U/L (14-36); Bilirubin,Total 0.5 mg/dL (0.2-1.3); Blood Urea Nitrogen 8 mg/dL (7-17); Calcium 9.1 mg/dL (8.4-10.2); Carbon Dioxide 28 mmol/L (22-30); Chloride 103 mmol/L (98-107); Cholesterol 168 mg/dL (0-200); Estimated Glomerular Filt Rate > 60; Glucose 88 mg/dL (65-110); HDL Direct 58 mg/dL; Sodium 138 mmol/L (137-145); Triglycerides 74 mg/dL (<150)
[2023-07-23 09:52] LABS: Iron 171 ug/dL (37-170)
[2023-07-23 09:59] LABS: LDL Cholesterol Direct 77 mg/dL
[2023-07-23 10:02] LABS: Percent Iron Saturation 41 % (20-50)
[2023-07-23 10:10] LABS: Free T4 Free Thyroxine 1.21 ng/mL (0.78-2.19)
[2023-07-23 10:18] LABS: Total Triiodothyronine (T3) 1.59 NG/ML (0.97-1.69)
[2023-07-23 10:28] LABS: Ferritin 9.94 ng/mL (6.24-137)
[2023-07-23 10:54] LABS: Folic Acid 10.6 ng/mL (2.76->20)
[2023-07-27 13:17] LABS: Vitamin B6 9.2 ng/mL (2.1-21.7)
[2023-07-27 14:00] LABS: Vitamin B1 <6 nmol/L (8-30)
[2023-07-29 16:53] LABS: Alpha-Tocopherol 10.6 mg/L (5.7-19.9); Beta-Gamma Tocopherol <1.0 mg/L (<=4.3)
[2023-07-31 22:31] LABS: Vitamin B2 8.4 nmol/L (6.2-39.0)
== END 2023-07-23 08:12 | disposition home or self-care (01) ==
LOC: ANHLAB 08:14
PROVIDERS: PCP Nurse Practitioner Adult Health; Visit Provider Nurse Practitioner Adult Health
DX: D50.9 Iron deficiency anemia, unspecified (principal); R53.1 Weakness; R53.83 Other fatigue; I10 Essential (primary) hypertension
CPT/HCPCS: 36415; 80053; 80061; 82607; 82728; 82746; 83540; 83550; 84207; 84252; 84425; 84439; 84443; 84446; 84480; 85025

== ENCOUNTER 2023-09-16 00:50 | Day surgery (SDC) | payer OTHER, SELFPAY ==
[2023-09-09 14:36] VITALS: BMI 20.6
--- NOTE | 2023-09-09 14:56 | SUR.PREOP ---
Addendum entered by Morris Reis RN 09/10/23 15:01: LAST DATE TO TAKE VITAMINS AND SUPPLIMENTS IS 09/12/23 Original Note: Report to the Outpatient Waiting Room, entrance under the [place] [facility] located off [facility], at time 0930 on date 09/16/23. Planned Procedure Time: 1130. Time changes happen often and if your time is changed the preop area will call you the afternoon before. - You and your visitor will be asked to self-screen and do not enter if you have any COVID symptoms. - A mask is optional within the hospital at this time. Patients may have clear liquids (water, carbonated beverages, clear teas, apple juice) until 3 hours prior to surgery with a maximum of 20 ounces. - No food from midnight until time of surgery Take the following medications with a SIP of water the morning of surgery: N/A DO NOT STOP ANY OF YOUR OTHER PRESCRIPTION MEDICATIONS PRIOR TO SURGERY ?EXCEPT THE FOLLOWING Medications to discontinue per physician STOP ALL VITAMINS AND SUPPLIMENTS 3 DAYS PRIOR TO PROCEDURE Date to take last dose 05/12/23 Please no make-up, nail kyrgyz, hairspray, perfume, deodorant, or body powder the day of surgery. No jewelry (including any body piercings) or valuables the day of surgery, leave them at home. Please take a shower or bath the night before, or the morning of, surgery with an antibacterial (HIBICLENS) soap. Wear comfortable, loose fitting clothing. Children are encouraged to wear pajamas. - Jewelry must be removed prior to entering the operating room. Rings and piercings that are not removed may be cut off. - The hospital will not accept responsibility for valuables. - Please leave all valuables, including medications, at home the day of surgery. If you are going home after surgery, a licensed driver salesman must drive you home. - NO public transportation without another adult if you receive anesthesia. - We recommend that an adult stay with you for 24 hours following discharge. - We also recommend that you do not drive, make important decision, drink alcoholic beverages, or take any drugs that were not prescribed by your health care provider for at least 24 hours after your discharge time. Follow any additional instructions given to you from your surgeon. If you or anyone in your household have experienced Covid symptoms in the past week, please notify your surgeon or the nurse liaison at the phone number below for possible testing. Telephone instructions given to KIET ROA and asked if any additional questions and then verbalized understanding. Patient advised to call surgeon office or pre surgery nurse liaison [phone] if any additional questions.
--- NOTE | 2023-09-14 10:03 | P.HP_ITS ---
H&P: HPI History of Present Illness Date/Time: 09/14/23 10:03 Chief Complaint: Nasal obstruction nasal congestion septal deviation turbinate hypertrophy Narrative: planned procedure Review of Systems Review of Systems: All systems reviewed & are unremarkable except as noted in HPI and below [facility] Past Medical History Medical History Anxiety PTSD (post-traumatic stress disorder) Surgical History Surgical History No pertinent past surgical history S/P tonsillectomy Social History Social History (Updated 07/03/23 @ 14:35 by Yokasta Bond CMA) Smoking status: Never smoker Alcohol intake: never Substance use: never Lack of Transportation: No Lack of Food: Never True Current Housing: I Have Housing Concerned About Future Housing: No Difficulty Paying Gas/Electric Bills: No Difficulty Paying for Meds: No Currently Unemployed: Decline to Answer Education: High School Diploma/GED Difficulty w/ Childcare or Family Care: No Living arrangements: with family Occupation/Education: student Gender identity (if verbalized by the patient): Female Sexual Orientation (if Verbalized by the Patient): Straight or Heterosexual Spiritual care concerns: No Meds Home Medications and Allergies Home Medications Medication Instructions Recorded Confirmed Type cetirizine 10 mg tablet 10 mg PO DAILY 02/05/22 09/09/23 History cyanocobalamin (vitamin B-12) 1 tablet PO DAILY 04/29/22 09/09/23 History triamcinolone acetonide 0.1 % 1 applic topical BID PRN eczema 09/09/23 09/09/23 History topical cream Allergies Allergy/AdvReac Type Severity Reaction Status Date / Time No Known Allergies Allergy Verified 09/09/23 14:43 Exam Narrative: large turbinates septal deviation more to the right Assessment and Plan Assessment and plan (1) Nasal septal deviation: Code(s): J34.2 - Deviated nasal septum Status: Acute Assessment and Plan: Plan moving forward turbinate reduction bilateral with outfracture in the operating room septoplasty will need to be more aggressive on the turbinates this time cautery as well.? Risks discussed including septal perforation change in vision total blindness CSF leak brain brain damage damage to any structure the clavicles by myself failure to resolve symptoms potential re hypertrophy of the turbinates again.? Need for further procedures postoperative bleeding damage to any structure in the induction and remains of anesthesia including vocal cord paralysis. (2) Nasal obstruction: Code(s): J34.89 - Other specified disorders of nose and nasal sinuses Status: Acute (3) Nasal congestion: Code(s): R09.81 - Nasal congestion Status: Acute (4) Hypertrophy of both inferior nasal turbinates: Code(s): J34.3 - Hypertrophy of nasal turbinates Status: Acute
[2023-09-16] VITALS (9 sets, daily range): BP systolic 112–138; BP diastolic 57–71; PULSE 71–122; RESP 12–17; TEMP 36.3–36.8; O2SAT 98–100
--- NOTE | 2023-09-16 07:22 | WPDHPUPDATE1 ---
History and Physical Update Update Date/Time: 09/16/23 07:22 History and Physical has been reviewed, including an updated exam of the patient. There are NO changes in the patient's condition. Risks, benefits, and alternatives have been discussed and questions answered. Patient agrees to proceed with procedure.
[2023-09-16] MEDS: ACETAMINOPHEN 500 MG TABLET 1000 MG PO (10:04)
[2023-09-16] MEDS: LACTATED RINGERS 1,000 ML 30 ML IV CONT ×2 (10:10→14:02)
--- NOTE | 2023-09-16 11:46 | SUR.PREOP ---
Resting without complaint.
--- NOTE | 2023-09-16 11:51 | P.PNAN_ITS ---
Anes - Initial Pre Proc Eval Procedure: Operation Date: 09/16/23 11:45 Proposed Procedures p Endoscopic Septoplasty - Baldo Mitchell MD s Bilateral Inferior Turbinectomy with Outfracture - Baldo Mitchell MD Date/Time: 09/16/23 11:51 Surgeon: Baldo Mitchell MD Pre Op Diagnosis: Septal Dev, Turbinate Hypertrophy Patient Data Age: 23 Gender: F Height: 1.57 m Weight: 50.4 kg Last Vital Signs Temp 36.8 C 09/16/23 10:17 Pulse 71 09/16/23 10:17 Resp 16 09/16/23 10:17 BP 124/63 09/16/23 10:17 Pulse Ox 100 09/16/23 10:17 O2 Del Method Room Air 09/16/23 10:17 Allergies Allergy/AdvReac Type Severity Reaction Status Date / Time No Known Allergies Allergy Verified 09/16/23 09:44 Home Medications Medication Instructions Recorded Confirmed Type cetirizine 10 mg tablet 10 mg PO DAILY 02/05/22 09/09/23 History cyanocobalamin (vitamin B-12) 1 tablet PO DAILY 04/29/22 09/09/23 History triamcinolone acetonide 0.1 % 1 applic topical BID PRN eczema 09/09/23 09/09/23 History topical cream Patient hx anesthesia problems: none Family hx anesthesia problems: none Results Review: All pre-operative results and documents have been reviewed as part of the pre- operative evaluation. [facility] Past Medical History Medical History Anxiety PTSD (post-traumatic stress disorder) Surgical History Surgical History No pertinent past surgical history S/P tonsillectomy Social History Social History Smoking status: Never smoker Alcohol intake: never Substance use: never Lack of Transportation: No Lack of Food: Never True Current Housing: I Have Housing Concerned About Future Housing: No Difficulty Paying Gas/Electric Bills: No Difficulty Paying for Meds: No Currently Unemployed: Decline to Answer Education: High School Diploma/GED Difficulty w/ Childcare or Family Care: No Living arrangements: with family Occupation/Education: student Gender identity (if verbalized by the patient): Female Sexual Orientation (if Verbalized by the Patient): Straight or Heterosexual Spiritual care concerns: No Anes - Eval Final PreProcedure Day of Procedure 09/16/23 11:51 Patient weight: normal Heart: regular rate and rhythm Lungs: clear to auscultation Airway: Mallampati scale class II Neurological: alert and oriented Last oral intake: >/= 8 hours ASA classification: II Emergent: no Anesthetic plan: proceed Anesthesia type and monitoring: general ETT and standard monitoring Results Review: All pre-operative results and documents have been reviewed as part of the pre- operative evaluation. Informed Consent: The patient's anesthetic plan and its attendant risks and benefits were discussed with the patient/family/POA. Questions were solicited and answers provided to the satisfaction of the patient/family/POA.
[2023-09-16] MEDS: ceFAZolin 2 GM/D5W 50 ML 2 GM/50 ML BAG IVPB (12:25)
[2023-09-16] MEDS: LIDO 1%/EPINEPHRINE 1:100,000 50 ML VIAL INFILTRATE (12:37)
[2023-09-16] MEDS: OXYMETAZOLINE HCL 0.05% NAS 15 ML BTL (*BKC) 1 SPRAY NASAL (12:37)
--- NOTE | 2023-09-16 14:14 | W.PM.PROC2 ---
Procedure Note - Detailed Date of Procedure 09/16/23 Pre-op Diagnosis Septal Dev, Turbinate Hypertrophy Post-op Diagnosis Same Procedure Performed Septoplasty turbinate reduction bilaterally with outfracture Surgeon Baldo Mitchell MD Anesthesia General Indications See above Findings Fairly deviated right superior septum a very hypertrophied turbinates. Description of Procedure Patient identified consent verified preop. Patient brought to the operating room. Time-out performed. General anesthesia induced endotracheal tube secure airway. Patient prepped draped position procedure confirmed 2nd time-out performed. Total 13 cc 1% lidocaine 1 100,000 parts epinephrine injected in bilateral nasal septum and inferior turbinates. It was noted that the right middle turbinate was slightly floppy moving in a lateral to medial position. With minimal pressure. Right maxillary antrostomy was patent the sinus looked open there was no excess mucus pus purulence polyps or disease. [place] incision made left nasal septum with a 15 blade left nasal septal flap elevated with 7 Sinhala suction. Osteotome utilized to cross over. Right nasal septal right nasal septal flap elevated a 7 Sinhala suction. Osteotome utilized to outline cartilaginous septum. Deep blade utilized to make the superior cut. Deviated septum Glynn forceps. The nose did not collapse following cartilage removal. Nik Díaz forceps used to perform the high septoplasty removed cartilage of bone. Quilting stitch placed with a 4-0 plain gut on a Jonathan needle. [place] incision closed with 3 interrupted 5 0 fast gut sutures. Turbinates reduced in the submucosal plane using microdebrider and outfracture. [place] tips were cauterized with Bovie suction electrocautery setting of 10. Flores splints were placed bilaterally the right ensured to be lateral to the middle turbinate. Sutured anteriorly using 3-0 mattress nylon suture. Patient tolerated the procedure well. Patient taken to PACU care the patient given Anesthesiology. Blood loss 15 cc no complication. Estimated Blood Loss -15.0 Drains No Packing No Pathology None sent Complications No immediate complications Condition Stable Disposition PACU [facility] Billing Surgery - Charge Forward: Surgery Billing
[2023-09-16] MEDS: fentaNYL CITRATE INJ (*CRX) 100 MCG/2 ML VIAL 25 MCG IV PUSH (14:48)
[2023-09-16] MEDS: ONDANSETRON INJ 4 MG/2 ML VIAL IV PUSH (15:08)
[2023-09-16] MEDS: diphenhydrAMINE HCl INJ 50 MG/ML VIAL 12.5 MG IV PUSH (16:01)
[2023-09-16] MEDS: SCOPOLAMINE 1.5 MG PATCH TRANSDERM (16:01)
== END 2023-09-16 16:29 | disposition home or self-care (01) ==
PROVIDERS: PCP Nurse Practitioner Adult Health; Visit Provider Otolaryngology
PROC: (CPT 30520; principal; 2023-09-16 11:45)
PROC: (CPT 30520; 2023-09-16 11:45)
DX: J34.2 Deviated nasal septum (principal); J34.3 Hypertrophy of nasal turbinates; J34.89 Other specified disorders of nose and nasal sinuses; R09.81 Nasal congestion
CPT/HCPCS: 30520; 30140; A9270; J0690; J1100; J1200; J2250; J2405; J2704; J3010; J7030; J7120

== ENCOUNTER 2023-10-12 00:41 | Emergency (ER) | payer OTHER, SELFPAY ==
--- NOTE | ~2023-10-12 | CT_ITS ---
EXAMINATION: CT abdomen pelvis wo con DATE: 10/12/2023 03:05 INDICATION: Right flank pain and hematuria TECHNIQUE: Computed tomography (CT) of the abdomen and pelvis was performed without intravenous contr ast. Automated exposure control and iterative reconstruction technique were employed. The dose-length product was 243.91 mGy-cm. COMPARISON: None FINDINGS: Lung bases are clear. Heart size is normal. No pericardial or pleural effusion. Liver, decompressed g allbladder, spleen, pancreas and bilateral adrenal glands are normal. Kidneys and ureters are normal with no urolithiasis, hydroureteronephrosis or perinephric/ureteral stranding. Bowels including the a ppendix are normal. Bladder, uterus and bilateral adnexa are unremarkable. Trace amount of likely phy siologic free fluid in the cul-de-sac. No free intraperitoneal gas. No pathologically enlarged abdomi nal or pelvic lymphadenopathy. Transitional partially lumbarized S1 segment. Bones are otherwise unre markable. IMPRESSION: 1. No urolithiasis or other acute intra-abdominal/pelvic process. Reviewed, dictated and finalized at location A. ARY COUNSELOR
[2023-10-12 00:44] VITALS: BP 152/78; PULSE 74; RESP 15; TEMP 36.3; O2SAT 100
[2023-10-12 01:22] LABS: Bacteria Urine None Seen /hpf; Non Pathogenic Casts 0-2; RBC Urine >100 /hpf (0-2); Squamous Epithelial Cell Urine Few /hpf (Few); WBC Urine >100 /hpf
[2023-10-12 02:29] LABS: Appearance Urine Turbid (Clear); Bilirubin Urine Negative (Negative); Blood Urine 3+ (Negative); Color Urine Orange (Yellow); Glucose Urine UA Negative (Negative); Ketones Urine Negative (Negative); Leukocyte Esterase Ur 2+ LEU/UL (Negative); Nitrate Urine Negative (Negative); Protein Urine 3+ mg/dL (Negative); Specific Grav Ur 1.015 (1.001-1.035); pH Urine 8.5 (5.0-9.0)
[2023-10-12 02:31] LABS: Add Urine Microscopic? YES
[2023-10-12 02:33] VITALS: BP 135/80; PULSE 84; RESP 15; O2SAT 100
[2023-10-12 03:04] LABS: Basophils Absolute Auto 0.1 K/mm3 (0.0-0.1); Basophils Percent Auto 0.3 % (0.2-1.2); Eosinophils Absolute Auto 0.1 K/mm3 (0-0.3); Eosinophils Percent Auto 0.9 % (0-4.4); Hematocrit 41.2 % (37.0-47.0); Hemoglobin 13.7 g/dL (12.0-15.0); Immature Granulocyte Absolute 0.03 K/mm3 (0.00-0.031); Immature Granulocyte Percent A 0.2 % (0-0.5); Lymphocytes Absolute Auto 3.53 K/mm3 (0.9-3.2); Mean Corpuscular HGB Conc 33.3 g/dl (32-36); Mean Corpuscular Hemoglobin 34.1 pg (26-34); Mean Corpuscular Volume 102.5 fl (80-100); Mean Platelet Volume 9.8 fl (7.4-10.4); Monocytes Absolute Auto 1.6 K/mm3 (0.1-0.6); Neutrophils Absolute Auto 9.3 K/mm3 (1.3-6.7); Neutrophils Percent Auto 63.6 % (45.5-73.1); Platelet Count Result 313 k/mm3 (150-375); Red Blood Count 4.02 M/mm3 (4.2-5.4); Red Cell Distribution Width 13.1 % (11.5-14.5); White Blood Count 14.7 K/mm3 (4.5-10.0)
[2023-10-12 04:25] VITALS: BP 120/63; PULSE 70; RESP 15; O2SAT 99
[2023-10-12 04:41] LABS: Alanine Aminotransferase 17 U/L (6-35); Albumin Level 4.6 g/dL (3.5-5.1); Alkaline Phosphatase 77 U/L (38-126); Anion Gap 9 mmol/L (8-16); Aspartate Amino Transferase 25 U/L (14-36); Bilirubin,Total 0.3 mg/dL (0.2-1.3); Blood Urea Nitrogen 13 mg/dL (7-17); Calcium 9.2 mg/dL (8.4-10.2); Carbon Dioxide 22 mmol/L (22-30); Chloride 105 mmol/L (98-107); Estimated CRCL calculation 117 ml/min; Estimated Glomerular Filt Rate > 60; Glucose 95 mg/dL (65-110); Potassium 3.9 mmol/L (3.4-5.0); Sodium 136 mmol/L (137-145)
--- NOTE | 2023-10-12 04:55 | ED.GENADULT ---
HPI - General Adult General Chief complaint: Urogenital-Female Stated complaint: blood in urine Time Seen by Provider: 10/12/23 02:15 History of Present Illness HPI narrative: Patient is 23-year-old female who presents to emergency department with chief complaint of right-sided flank pain and hematuria. Patient reports she believes she has UTI but is also concerned she may have a kidney stone. Patient reports no trauma reports that diarrhea last menstrual period was about a week and half ago. Related Data Home Medications Medication Instructions Recorded Confirmed cetirizine 10 mg tablet 10 mg PO DAILY 02/05/22 09/24/23 cyanocobalamin (vitamin B-12) 1 tablet PO DAILY 04/29/22 09/24/23 triamcinolone acetonide 0.1 % 1 applic topical BID PRN eczema 09/09/23 09/24/23 topical cream Allergies Allergy/AdvReac Type Severity Reaction Status Date / Time No Known Allergies Allergy Verified 09/24/23 15:11 Review of Systems Review of Systems: A 10 system review of systems was completed on the patient and is negative except for what is stated in the HPI. Nursing and ancillary documentation was reviewed. [facility] Past Medical History Medical History Anxiety PTSD (post-traumatic stress disorder) Surgical History Surgical History No pertinent past surgical history S/P tonsillectomy Social History Social History Smoking status: Never smoker Alcohol intake: never Substance use: never Lack of Transportation: No Lack of Food: Never True Current Housing: I Have Housing Concerned About Future Housing: No Difficulty Paying Gas/Electric Bills: No Difficulty Paying for Meds: No Currently Unemployed: Decline to Answer Education: High School Diploma/GED Difficulty w/ Childcare or Family Care: No Living arrangements: with family Occupation/Education: student Gender identity (if verbalized by the patient): Female Sexual Orientation (if Verbalized by the Patient): Straight or Heterosexual Spiritual care concerns: No Exam Narrative: GENERAL: Well-appearing, well-nourished, and in no acute distress. HEAD: Normocephalic, atraumatic. EYES: PERRLA and EOMI. ENT: Nares clear, no rhinorrhea or epistaxis. Mucous membranes moist. NECK: Supple. CHEST: Clear to auscultation. No respiratory distress. HEART: Regular rate and rhythm. No murmur heard. Normal peripheral pulses. ABDOMEN: Soft, nontender, nondistended, normal active bowel sounds. EXTREMITIES: Normal range of motion. No edema. SKIN: Warm, dry, no rash. NEURO: No focal deficits. Alert and oriented x3. PSYCH: Normal mood and affect. Course Vital Signs Vital signs: Vital Signs Temperature 36.3 C L 10/12/23 00:44 Pulse Rate 74 10/12/23 00:44 Respiratory Rate 15 10/12/23 00:44 Blood Pressure 152/78 H 10/12/23 00:44 Pulse Oximetry 100 10/12/23 00:44 Oxygen Delivery Room Air 10/12/23 00:44 Temperature 36.3 C L 10/12/23 00:44 Pulse Rate 70 10/12/23 04:25 Respiratory Rate 15 10/12/23 04:25 Blood Pressure 120/63 10/12/23 04:25 Pulse Oximetry 99 10/12/23 04:25 Oxygen Delivery Room Air 10/12/23 00:44 Medical Decision Making MDM Narrative Medical decision making narrative: differential diagnosis includes pyelonephritis, UTI, hemorrhagic cystitis, kidney stone laboratory studies showed a greater than 100 white blood cells and greater than 100 rbc's in the urine. Electrolytes are within normal limits CBC showed a white count of 14.7 CT scan of the abdomen pelvis showed no acute abnormalities. Patient was given a 1g Rocephin in the emergency department discharged home on Keflex t.i.d. Vital Signs Vital Signs: Vital Signs Temperature 36.3 C L 10/12/23 00:44 Pulse Rate 74 10/12/23 00:44
[2023-10-12 06:51] VITALS: BP 114/77; PULSE 72; RESP 15; O2SAT 98
[2023-10-12 07:01] VITALS: BP 111/70; PULSE 71; RESP 15; O2SAT 99
== END 2023-10-12 07:08 | disposition home or self-care (01) ==
PROVIDERS: Emergency Provider Emergency Medicine; PCP Nurse Practitioner Adult Health
DX: N30.91 Cystitis, unspecified with hematuria (principal)
CPT/HCPCS: 36415; 74176; 80053; 81001; 81025; 85025; 87077; 87086; 87186; 96365; 99284; J0696

== ENCOUNTER 2024-01-02 18:41 | Emergency (ER) | payer OTHER, SELFPAY ==
--- NOTE | ~2024-01-02 | CT_ITS ---
EXAMINATION: CT brain wo con DATE: 01/02/2024 21:42 INDICATION: Head injury. TECHNIQUE: Computed tomography (CT) of the head was performed without intravenous contrast. The mA wa s adjusted according to patient size. Iterative reconstruction technique was employed. The dose-lengt h product was 681.00 mGy-cm. COMPARISON: None FINDINGS: There is no intracranial hemorrhage, acute infarction, or abnormal intracranial mass lesion . The ventricles are normal in size. There is mucosal thickening in the paranasal sinuses. The mastoi d air cells are normal. IMPRESSION: 1. Normal brain. Reviewed, dictated and finalized at location E. F [employer] POL[employer] IMPRESSION: 1. Normal brain.
[2024-01-02 18:42] VITALS: BP 127/73; PULSE 71; RESP 14; TEMP 36.3; O2SAT 100
--- NOTE | 2024-01-02 23:43 | ED.GENADULT ---
HPI - General Adult General Chief complaint: Unspecified Stated complaint: nasal drainage Time Seen by Provider: 01/02/24 21:26 History of Present Illness HPI narrative: This is a 23-year-old female history of silent syndrome multiple sinus surgeries presenting for possible CSF leak. She struck her head on the swap are 5 days ago. Since then she has had clearing clear fluid persistently leaking out of her left near. Additionally she has developed headaches that are a ring- like pressure that improved when she lays down and worse when she sits up. The patient was seen in urgent care earlier today hospital. No other complaints. Related Data Home Medications Medication Instructions Recorded Confirmed cetirizine 10 mg tablet 10 mg PO DAILY 02/05/22 11/10/23 cyanocobalamin (vitamin B-12) 1 tablet PO DAILY 04/29/22 11/10/23 triamcinolone acetonide 0.1 % 1 applic topical BID PRN eczema 09/09/23 11/10/23 topical cream Allergies Allergy/AdvReac Type Severity Reaction Status Date / Time No Known Allergies Allergy Verified 01/02/24 21:11 [facility] Past Medical History Medical History Anxiety PTSD (post-traumatic stress disorder) Surgical History Surgical History No pertinent past surgical history S/P tonsillectomy Social History Social History Smoking status: Never smoker Alcohol intake: never Substance use: never Lack of Transportation: No Lack of Food: Never True Current Housing: I Have Housing Concerned About Future Housing: No Difficulty Paying Gas/Electric Bills: No Difficulty Paying for Meds: No Currently Unemployed: Decline to Answer Education: High School Diploma/GED Difficulty w/ Childcare or Family Care: No Living arrangements: with family Occupation/Education: student Gender identity (if verbalized by the patient): Female Sexual Orientation (if Verbalized by the Patient): Straight or Heterosexual Spiritual care concerns: No Exam Narrative: APPEARANCE: No apparent distress. Well-appearing A&O x3 Head: TMs normal. Clear fluid from left [place]. EYES: EOMI, NOSE: Atraumatic NECK: Trachea midline RESPIRATORY: No increased rate of breathing CARDIOVASCULAR: RRR, ABDOMINAL: Non-distended MUSCULOSKELETAl: No obvious deformities NEURO: Alert. Cranial nerves 2-12 grossly intact. Sensation light touch, motor function cerebellar function intact for 4 extremities. Gait exam was normal. SKIN:: Warm, dry. Normal color PSYCHIATRIC: Normal affect Course Vital Signs Vital signs: Vital Signs Temperature 97.4 F L 01/02/24 18:42 Pulse Rate 71 01/02/24 18:42 Respiratory Rate 14 01/02/24 18:42 Blood Pressure 127/73 01/02/24 18:42 Pulse Oximetry 100 01/02/24 18:42 Oxygen Delivery Room Air 01/02/24 18:42 Temperature 97.4 F L 01/02/24 18:42 Pulse Rate 71 01/02/24 18:42 Respiratory Rate 14 01/02/24 18:42 Blood Pressure 127/73 01/02/24 18:42 Pulse Oximetry 100 01/02/24 18:42 Oxygen Delivery Room Air 01/02/24 18:42 Medical Decision Making MDM Narrative Medical decision making narrative: -Course: 23-year-old female presenting with possible CSF leak. CT head here was normal. Case was discussed with neurosurgeon on-call Dr. Rivera. He recommended transfer to tertiary care center. Case was discussed with Neurosurgery and ED physician Dr. Beltre. Patient has been accepted and transferred to [facility]. Recommended transfer via ambulance. The patient declined as she did not want to pay for it. Patient will be going via private vehicle. -DDX includes but is not limited to: CSF leak, sinus congestion -Co-morbidities complicating care: Multiple sinus surgeries -Independent interpretation of studies: CT negative -Discussion of Management/Consultants: Dr. Rivera NSX,
[2024-01-03 00:02] VITALS: PULSE 75; RESP 16; O2SAT 100
== END 2024-01-03 00:02 | disposition short-term general hospital (02) ==
PROVIDERS: Emergency Provider Emergency Medicine; PCP Nurse Practitioner Adult Health
DX: G96.00 Cerebrospinal fluid leak, unspecified (principal); S09.90XA Unspecified injury of head, initial encounter; F41.9 Anxiety disorder, unspecified; F43.10 Post-traumatic stress disorder, unspecified
CPT/HCPCS: 70450; 99284

== ENCOUNTER 2024-02-26 16:40 | Emergency (ER) | payer OTHER, SELFPAY ==
--- NOTE | ~2024-02-26 | XR_ITS ---
EXAMINATION: XR wrist RT min 3V DATE: 02/26/2024 17:01 INDICATION: Right wrist injury and pain. TECHNIQUE: 4 views of right wrist were obtained. COMPARISON: None. FINDINGS: Bone alignment is normal. No fracture. Joint spaces are normal. IMPRESSION: 1. Normal right wrist. Reviewed, dictated and finalized at location E. IMPRESSION: 1. Normal right wrist.
--- NOTE | 2024-02-26 16:53 | ED.UPPEXIN ---
HPI - Extremity Injury (Upper) General Chief Complaint: Extremity Injury, Upper Stated Complaint: Right Arm Pain Time Seen by Provider: 02/26/24 16:54 Source: patient, RN notes reviewed and old records reviewed Mode of arrival: ambulatory Limitations: no limitations History of Present Illness HPI narrative: 23-year-old female presents to [facility] with complaints of right dorsal wrist pain after falling while mopping. Denies hitting head. No loss of consciousness. History of fracture in the same wrist per patient MD complaint: injury to: right and wrist Onset (ago): hour(s) Other injuries: none Related Data Home Medications Medication Instructions Recorded Confirmed cyanocobalamin (vitamin B-12) 1 tablet PO DAILY 04/29/22 02/26/24 Allergies Allergy/AdvReac Type Severity Reaction Status Date / Time No Known Allergies Allergy Verified 02/26/24 16:42 Review of Systems Review of Systems: All systems reviewed & are unremarkable except as noted in HPI and below Constitutional: Constitutional: Reports no additional constitutional complaints Eyes: Eyes: Reports no additional eye complaints ENT: Reports system reviewed and no additional complaints, except as documented Cardiovascular: Cardiovascular: Reports no additional cardiovascular complaints, Denies chest pain and Denies dyspnea Respiratory: Respiratory: Reports no additional respiratory complaints, Denies chest congestion, Denies cough and Denies dyspnea Gastrointestinal: Gastrointestinal: Reports no additional gastrointestinal complaints, Denies abdominal pain, Denies nausea and Denies vomiting Musculoskeletal: Musculoskeletal: Reports as per HPI, Reports arthralgias and Denies joint swelling Integumentary/Breasts: Skin/Breast: Reports system reviewed and no additional complaints, except as docu Neurologic: Reports system reviewed and no additional complaints, except as documented Psychiatric: Psychiatric: Reports no additional psychiatric complaints Allergic/Immunologic: Allergic/Immunologic: Reports no additional allergic/immunologic complaints [facility] Past Medical History Medical History Anxiety PTSD (post-traumatic stress disorder) Surgical History Surgical History No pertinent past surgical history S/P tonsillectomy Social History Social History Smoking status: Never smoker Alcohol intake: never Substance use: never Lack of Transportation: No Lack of Food: Never True Current Housing: I Have Housing Concerned About Future Housing: No Difficulty Paying Gas/Electric Bills: No Difficulty Paying for Meds: No Currently Unemployed: Decline to Answer Education: High School Diploma/GED Difficulty w/ Childcare or Family Care: No Living arrangements: with family Occupation/Education: student Gender identity (if verbalized by the patient): Female Sexual Orientation (if Verbalized by the Patient): Straight or Heterosexual Spiritual care concerns: No Comments At the time of my signature, I reviewed and agree with the nursing past medical, surgical, social, and family history. There is no relevant family history pertinent to the patient complaint. Exam Const: General: cooperative, healthy appearing, comfortable, no acute distress, well developed, alert and well nourished Nutritional Appearance: well nourished Orientation/consciousness: patient oriented x3 Limitations: no limitations HENMT: Head: normal to inspection Ears: hearing grossly normal bilaterally and external ears normal Face/Nose/Sinus: Normal external nose present, Normal nares present, Normal nasal mucous membranes and turbinates present, normal facial exam and face symmetric Face and sinus: normal facial exam and face symmetric Eyes: General: appearance normal, both eyes and all relate
[2024-02-26 16:54] VITALS: BP 126/57; PULSE 68; RESP 16; TEMP 37.1; O2SAT 100
== END 2024-02-26 17:13 | disposition home or self-care (01) ==
PROVIDERS: Emergency Provider Nurse Practitioner; PCP Family Medicine
DX: S63.501A Unspecified sprain of right wrist, initial encounter (principal); W19.XXXA Unspecified fall, initial encounter; Y93.E5 Activity, floor mopping and cleaning
CPT/HCPCS: 73110; 99213; G0463

== ENCOUNTER 2024-05-28 17:49 | Emergency (ER) | payer OTHER, SELFPAY ==
[2024-05-28 17:57] VITALS: BP 127/70; PULSE 70; RESP 16; TEMP 37.1; O2SAT 100
--- NOTE | 2024-05-28 18:13 | ED.GENADULT ---
HPI - General Adult General Chief complaint: Skin/Abscess/Foreign Body Stated complaint: Rash Source: patient Mode of arrival: ambulatory Limitations: no limitations History of Present Illness HPI narrative: Patient presents for evaluation of skin concerns. She indicates she has had a pruritic rash to the right lateral aspect of her neck for the last few weeks. No new lotions, soaps, detergents, topical products. She states she is quite conscious of which she uses on her skin as she has skin sensitivity. She also has underlying eczema. She goes to the gym regularly but wipes and takes a shower immediately after her workout. She has tried placing mupirocin on the area as well as [id number] hydrocortisone cream without improvement thereafter. She also reports an insect bite to the anterior aspect of the right lower leg it has been there for several weeks. She is concerned about the persistent color change. Denies any warmth or drainage from the affected area. No fever, chills, nausea, vomiting. Related Data Allergies Allergy/AdvReac Type Severity Reaction Status Date / Time No Known Allergies Allergy Verified 05/28/24 17:59 Review of Systems Review of Systems: GENERAL: Well-appearing, well-nourished, and in no acute distress. HEAD: Normocephalic, atraumatic. EYES: PERRLA and EOMI. ENT: Nares clear, no rhinorrhea or epistaxis. Mucous membranes moist. Oropharynx without tonsillar hypertrophy exudate or other lesions. Bilateral TMs pearly anthony nonbulging NECK: Supple. No adenopathy or masses. No carotid bruits or JVD CHEST: Clear to auscultation. No respiratory distress. No wheezes rales or rhonchi HEART: Regular rate and rhythm. No murmur heard. Normal peripheral pulses. ABDOMEN: Soft, nontender, nondistended, normal active bowel sounds. EXTREMITIES: Normal range of motion. No edema. SKIN: There is a 1.5 cm area of purple discoloration in an annular appearance the anterior aspect of the right lower leg with a 3 mm scabbed area within that. There is an approximately 5x2.5cm area of erythema to right lateral aspect of her neck with associated scaling NEURO: No focal deficits. Alert and oriented x3. PSYCH: Normal mood and affect. [facility] Past Medical History Medical History Anxiety PTSD (post-traumatic stress disorder) Surgical History Surgical History No pertinent past surgical history S/P tonsillectomy Social History Social History Smoking status: Never smoker Alcohol intake: never Substance use: never Lack of Transportation: No Lack of Food: Never True Current Housing: I Have Housing Concerned About Future Housing: No Difficulty Paying Gas/Electric Bills: No Difficulty Paying for Meds: No Currently Unemployed: Decline to Answer Education: High School Diploma/GED Difficulty w/ Childcare or Family Care: No Living arrangements: with family Occupation/Education: student Gender identity (if verbalized by the patient): Female Sexual Orientation (if Verbalized by the Patient): Straight or Heterosexual Spiritual care concerns: No Course Course Emergency Course: This is a 24-year-old female who presented for evaluation of skin concerns. The area to her right lower leg appears to be a healing insect bite. she can apply mupirocin to the affected area. I suspect there is her neck is tinea and she can use ketoconazole. In the event that that does not work will also provide her with a prescription for triamcinolone. Benadryl should help with itching. Follow-up primary provider. Go to the ER for worsening symptoms. Patient in agreement with plan of care Level of Care: Express Care Visit Vital Signs Vital signs: Vital Signs Temperature 37.1 C 05/28/24 17:57 Pulse Rate 70 05/28/24 17:57 Respiratory
== END 2024-05-28 18:15 | disposition home or self-care (01) ==
PROVIDERS: Emergency Provider Nurse Practitioner; PCP Family Medicine
DX: L30.9 Dermatitis, unspecified (principal); S80.861A Insect bite (nonvenomous), right lower leg, initial encounter; W57.XXXA Bitten or stung by nonvenomous insect and other nonvenomous arthropods, initial encounter
CPT/HCPCS: 99213; G0463

== ENCOUNTER 2024-05-30 21:18 | Emergency (ER) | payer OTHER, SELFPAY ==
[2024-05-30] VITALS (7 sets, daily range): BP systolic 106–158; BP diastolic 51–90; PULSE 77–93; RESP 18–21; TEMP 36.4; O2SAT 97–100
--- NOTE | ~2024-05-30 | XR_ITS ---
EXAMINATION: XR chest 1V portable DATE: 05/30/2024 22:15 INDICATION: Syncopal episode TECHNIQUE: frontal view of the chest was obtained. COMPARISON: Chest radiograph dated 04/11/2022 FINDINGS: The lungs remain clear with no focal airspace opacities, pulmonary edema, pleural effusion or pneumot horax. The cardiomediastinal silhouette is normal. Visualized bones and soft tissues are unremarkable . IMPRESSION: 1. No acute cardiopulmonary disease. Reviewed, dictated and finalized at location A.
--- NOTE | 2024-05-30 21:28 | ECG_ITS ---
Test Date: 2024-05-30 21:42:09 Measurements Intervals [place] Rate: 87 P: 62 [place]: 147 QRS: 74 QRSD: 83 T: 46 QT: 347 QTc: 418 Interpretive Statements SINUS RHYTHM WITH SINUS ARRHYTHMIA MINIMAL Q WAVES- INF/LAT LEADS BORDERLINE ECG No previous ECG available for comparison Electronically Signed On 05-31-2024 06:25:29 CDT by Porter Dominguez D.O.
[2024-05-30 21:51] LABS: Basophils Percent Auto 0.3 % (0.2-1.2); Eosinophils Percent Auto 0.1 % (0-4.4); Hematocrit 38.8 % (37.0-47.0); Immature Granulocyte Absolute 0.04 K/mm3 (0.00-0.031); Immature Granulocyte Percent A 0.3 % (0-0.5); Lymphocytes Absolute Auto 2.41 K/mm3 (0.9-3.2); Lymphocytes Percent Auto 16.7 % (18.3-44.2); Mean Corpuscular HGB Conc 33.5 g/dl (32-36); Mean Corpuscular Hemoglobin 34.1 pg (26-34); Mean Corpuscular Volume 101.8 fl (80-100); Monocytes Absolute Auto 0.9 K/mm3 (0.1-0.6); Monocytes Percent Auto 6.1 % (2.6-8.5); Neutrophils Percent Auto 76.5 % (45.5-73.1); Platelet Count Result 267 k/mm3 (150-375); Red Blood Count 3.81 M/mm3 (4.2-5.4); Red Cell Distribution Width 13.5 % (11.5-14.5); White Blood Count 14.4 K/mm3 (4.5-10.0)
[2024-05-30 22:01] LABS: Alanine Aminotransferase 14 U/L (6-35); Albumin Level 5.1 g/dL (3.5-5.1); Alkaline Phosphatase 69 U/L (38-126); Anion Gap 11 mmol/L (4-12); Aspartate Amino Transferase 20 U/L (14-36); Bilirubin,Total 0.4 mg/dL (0.2-1.3); Blood Urea Nitrogen 9 mg/dL (7-17); Calcium 9.3 mg/dL (8.4-10.2); Carbon Dioxide 26 mmol/L (22-30); Chloride 101 mmol/L (98-107); Estimated CRCL calculation 94 ml/min; Estimated Glomerular Filt Rate > 60; Glucose 126 mg/dL (65-110); Potassium 3.9 mmol/L (3.4-5.0); Sodium 138 mmol/L (137-145)
[2024-05-30] MEDS: SODIUM CHLORIDE 0.9% IV 2,000 ML 999 ML IV CONT (23:07)
[2024-05-30 23:31] LABS: NT Pro B Type Natriuretic Pept < 20 pg/mL (19.9-100); Troponin I < 0.012 ng/mL (0.000-0.034)
[2024-05-30 23:38] LABS: D Dimer 0.31 ug/mL (<0.48)
--- NOTE | 2024-05-30 23:52 | ED.GENADULT ---
HPI - General Adult General Chief complaint: Syncope Stated complaint: Fainted earlier and then again Time Seen by Provider: 05/30/24 21:39 History of Present Illness HPI narrative: This is a 24-year-old female presenting with syncope. Patient was at a dog park when she ran from a fence and back. She then started to become lightheaded, her vision dark and and she loss consciousness. Her friends caught her and then she quickly regained consciousness. Patient says she feels like she cannot catch her breath. No fevers chills nausea vomiting or diarrhea. Patient notes that she is not eating or drinking very much today. She is concerned she is dehydrated. Related Data Allergies Allergy/AdvReac Type Severity Reaction Status Date / Time No Known Allergies Allergy Verified 05/28/24 17:59 [facility] Past Medical History Medical History Anxiety PTSD (post-traumatic stress disorder) Surgical History Surgical History No pertinent past surgical history S/P tonsillectomy Social History Social History Smoking status: Never smoker Alcohol intake: never Substance use: never Lack of Transportation: No Lack of Food: Never True Current Housing: I Have Housing Concerned About Future Housing: No Difficulty Paying Gas/Electric Bills: No Difficulty Paying for Meds: No Currently Unemployed: Decline to Answer Education: High School Diploma/GED Difficulty w/ Childcare or Family Care: No Living arrangements: with family Occupation/Education: student Gender identity (if verbalized by the patient): Female Sexual Orientation (if Verbalized by the Patient): Straight or Heterosexual Spiritual care concerns: No Exam Narrative: APPEARANCE: No apparent distress. Head: atraumatic. EYES: EOMI, NOSE: Atraumatic NECK: Trachea midline RESPIRATORY: No increased rate of breathing clear to auscultation CARDIOVASCULAR: RRR, no peripheral edema ABDOMINAL: Non-distended soft nontender MUSCULOSKELETAl: No obvious deformities NEURO: Alert. Moving 4/4 extremities SKIN:: Warm, dry. Normal color PSYCHIATRIC: Normal affect Course Vital Signs Vital signs: Vital Signs Temperature 97.6 F 05/30/24 21:23 Pulse Rate 83 05/30/24 21:23 Respiratory Rate 18 05/30/24 21:23 Blood Pressure 158/90 H 05/30/24 21:23 Pulse Oximetry 100 05/30/24 21:23 Oxygen Delivery Room Air 05/30/24 21:23 Temperature 97.6 F 05/30/24 21:23 Pulse Rate 90 05/30/24 22:45 Respiratory Rate 18 05/30/24 22:45 Blood Pressure 127/60 05/30/24 22:45 Pulse Oximetry 100 05/30/24 22:45 Oxygen Delivery Room Air 05/30/24 21:37 Medical Decision Making MDM Narrative Medical decision making narrative: -Course: 24-year-old female presenting with syncopal event. Workup unremarkable. EKG without evidence of dysrhythmia. Patient given fluid rate hydration is feeling better. Patient's monitored in ED with no recurrence of the event today. She was able to ambulate around the emergency department without difficulty. Vital signs stable and she is well-appearing. Patient will be discharged home to follow-up with her primary care physician -DDX includes but is not limited to: Vasovagal syncope, dehydration, orthostatic hypotension, cardiac dysrhythmia -Independent interpretation of studies: White count 14. No evidence of infection. Metabolic panel unremarkable. D-dimer 0.31, troponin BNP negative. Chest x-ray unremarkable. Independent EKG interpretation: Rhythm [sinus], Rate [87], [place] -[normal], [place] -[normal], QRS [narrow], QTC [normal], T waves -[negative for concerning inversions], ST Segments - [Negative for concerning elevations] Final interpretations: [Normal Sinus Rhythm] -Interventions: 2 L normal saline -Dispo: D/C - Vital Signs Vital Signs: V
[2024-05-31 00:15] VITALS: BP 118/70; PULSE 72; RESP 15; O2SAT 100
[2024-05-31 00:30] VITALS: BP 121/69; PULSE 78; RESP 22; O2SAT 100
== END 2024-05-31 00:50 | disposition home or self-care (01) ==
PROVIDERS: Emergency Provider Emergency Medicine; PCP Family Medicine
DX: R55 Syncope and collapse (principal)
CPT/HCPCS: 36415; 71045; 80053; 81025; 83880; 84484; 85025; 85380; 93005; 96360; 99284; J7030

== ENCOUNTER 2024-10-24 15:12 | Emergency (ER) | payer OTHER, SELFPAY ==
--- NOTE | 2024-10-24 15:25 | ED.URI ---
HPI - URI/Sore Throat General Chief Complaint: Upper Respiratory Infection Stated Complaint: fever,throwing up,cough Time Seen by Provider: 10/24/24 15:35 Source: patient Mode of arrival: ambulatory Limitations: no limitations History of Present Illness HPI Narrative: Marce is a 24-year-old male patient presenting to the clinic today with complaints of feeling feverish, vomiting, cough, nasal congestion, and sore throat. She reports her symptoms started yesterday. No shortness of breath or chest pain. MD elicited complaint: sore throat and nasal congestion Related Data Home Medications ?Medication ?Instructions ?Recorded ?Confirmed ?Last Taken ?Type No Home Medications 10/24/24 10/24/24 Unknown History Allergies Allergy/AdvReac Type Severity Reaction Status Date / Time No Known Allergies Allergy Verified 10/24/24 15:32 Review of Systems Review of Systems: Pertinent positives per HPI. Patient denies any fever, chills, rash, headache, visual changes, dizziness, shortness of breath, chest pain, palpitations, nausea, vomiting, diarrhea, constipation, abdominal pain, or any urinary issues. PMFSH Past Medical History Medical History Anxiety PTSD (post-traumatic stress disorder) Surgical History Surgical History S/P tonsillectomy No pertinent past surgical history Social History Social History Smoking status: Never smoker Alcohol intake: never Substance use: never Lack of Transportation: No Lack of Food: Never True Current Housing: I Have Housing Concerned About Future Housing: No Difficulty Paying Gas/Electric Bills: No Difficulty Paying for Meds: No Currently Unemployed: Decline to Answer Education: High School Diploma/GED Difficulty w/ Childcare or Family Care: No Living arrangements: with family Occupation/Education: student Gender identity (if verbalized by the patient): Female Sexual Orientation (if Verbalized by the Patient): Straight or Heterosexual Spiritual care concerns: No Comments At the time of my signature, I reviewed and agree with the nursing past medical, surgical, social, and family history. There is no relevant family history pertinent to the patient complaint. Exam Narrative: General: Well-developed, well nourished, in no apparent distress Head: Normocephalic, atraumatic Eyes: Pupils equally round and reactive to light bilaterally, EOM intact, sclera and conjunctive clear, no discharge, lids normal Ears: TMs intact and clear, ear canals clear, no drainage, grossly hearing normal. Nose: Nares patent, clear nasal discharge, no inflammation, no sinus tenderness. Mouth: Oral pharynx red without lesions or masses, good dentition, MMM. Neck: Supple, trachea midline, no enlargement of anterior or posterior cervical nodes, no thyroid masses or goiter palpable. Cardio: Regular rate and rhythm, s1 and s2 normal, no murmur appreciated. Resp: Clear to auscultation bilaterally, no rhonchi, rales, wheezing or rubs Course Course Emergency Course: Portions of this record may have been created with voice recognition software. Level of Care: Express Care Visit Vital Signs Vital signs: Vital Signs Temperature 36.9 C 10/24/24 15:30 Pulse Rate 84 10/24/24 15:30 Respiratory Rate 18 10/24/24 15:30 Blood Pressure 130/90 10/24/24 15:30 Pulse Oximetry 100 10/24/24 15:30 Oxygen Delivery Room Air 10/24/24 15:30 Temperature 36.9 C 10/24/24 15:30 Pulse Rate 84 10/24/24 15:30 Respiratory Rate 18 10/24/24 15:30 Blood Pressure 130/90 10/24/24 15:30 Pulse Oximetry 100 10/24/24 15:30 Oxygen Delivery Room Air 10/24/24 15:30 Vital signs reviewed MDM - URI/Sore Throat MDM Narrative Medical decision making narrative: At the time of visit patient is resting comfortably on the exam table. Patient appears to be nontoxic. Labs: COVID, influenza, and strep test were all negative in the clinic today. We will send strep for culture. Plan: I suspect patient has URI/pharyngitis. Supportive measures were discussed with the patient and they voiced understanding discharge instructions and agrees to treatment plan. Return precautions reviewed Differential Diagnosis Differential diagnosis: Likely upper respiratory infection, otitis media, sinusitis, viral infection, bronchitis, influenza, pharyngitis and other (COVID) Lab Data Labs: Lab Results 10/24/24 10/24/24 10/24/24 Range/Units 15:34 15:40 15:52 POC Influenza A Ag Negative (Negative) POC Influenza B Ag Negative (Negative) POC SARS CoV-2 Ag Negative (Negative) POC Grp A Strep Screen Negative Negative (Negative) Discharge Plan Discharge Clinical Impression: Upper respiratory infection Qualifiers: URI type: unspecified URI Qualified Code(s): J06.9 - Acute upper respiratory infection, unspecified Pharyngitis Qualifiers: Pharyngitis/tonsillitis etiology: unspecified etiology Qualified Code(s): J02.9 - Acute pharyngitis, unspecified Patient Disposition: Home, Self-Care Condition: Stable Instructions: Antibiotic Form, Pharyngitis (ED), Cold Symptoms (ED) Additional Instructions: COVID, influenza, and strep test were all negative in the clinic today. We will send strep for culture. If positive we will contact you and place you on antibiotics at that time. Increase fluids and stay well hydrated Tylenol/motrin for pain/fever Flonase and OTC antihistamines as directed Vicks vapor rub to open sinuses Sinus rinses for congestion Cepacol spray, cough drops, throat lozenges, warm tea with honey/lemon, gargle salt water to soothe throat BRAT diet for diarrhea Clear liquids x 24 hours then advance as tolerated for nausea/vomiting Go to the ED if you develop a worsening in your condition- high fever not controlled by Tylenol or Motrin, dehydration, weakness, lethargy, shortness of breath, or chest pain. Follow up with your PCP in 3-5 days if symptoms persist. Patient Language: Estonian Prescriptions: No Action No Home Medications Follow-up/Referrals: PHYSICIAN NOT ON STAFF,NONSTAFF [Primary Care Provider] - Time of Disposition: 15:51 Quality NIHSS Nursing Documentation ED NIHSS nursing documentation: reviewed/agree
[2024-10-24 15:30] VITALS: BP 130/90; PULSE 84; RESP 18; TEMP 36.9; O2SAT 100
[2024-10-24 15:41] LABS: EDSTREPNEGPOS1 Negative (Negative)
[2024-10-24 15:42] LABS: EDSTREPNEGPOS1 Negative (Negative)
[2024-10-24 15:53] LABS: EDCOVIDSCREEN Negative (Negative); EDINFLUASCREEN Negative (Negative); EDINFLUBSCREEN Negative (Negative)
== END 2024-10-24 16:00 | disposition home or self-care (01) ==
PROVIDERS: Emergency Provider Nurse Practitioner Family
DX: J06.9 Acute upper respiratory infection, unspecified (principal); J02.9 Acute pharyngitis, unspecified; Z20.822 Contact with and (suspected) exposure to COVID-19
CPT/HCPCS: 87081; 87426; 87804; 87880; 99213; G0463

== ENCOUNTER 2024-12-07 13:42 | Outpatient (CLI) | payer OTHER, SELFPAY ==
--- OUTSIDE RECORDS SUMMARY | 2024-12-07 14:22 | XMS_ITS | Patient Health Summary ---
Author Organization [facility] [employer] Address [address] [place] [address] Care Team Providers Care Fish Hatchery Specialist Name Role Phone Vicenta Damian MD Unavailable [phone] Ronal Jane Primary Care Provider + Note from [facility],non-owned Affiliates and Associated Physician Practices is amultiple site organization consisting of ambulatory clinics and hospital sitesin [place], [place], [place]. This disclosure is being madepursuant to the Care Everywhere program and may not contain all information available regarding this patient. Last updated 18.[facility] Allergies No known active allergies Medications * Be aware that medications may not be up to date on this document. Alwaysverify current medications with the patient. * FLUoxetine (PROZAC) 20 MG capsule Take 20 mg by mouth once daily. 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 ADHD (attention deficit hyperactivity disorder) 04/15/2013 Immunizations * DTaP VACCINE IM (6wk-6yrs)(Given 04/13/2007, 08/29/2003, 05/26/2003, 01/21/2003, 2002) * HEP A PEDS 2 DOSE(Given 08/19/2014, 05/08/2009) * HEP B VACCINE, PED/ADOL(Given 05/26/2003, 01/21/2003, 2002) * HIB-PRP-T 4 DOSE(Given 08/29/2003, 05/26/2003, 01/21/2003, 2002) * Human Papilloma Virus Vaccine(Given 08/19/2014) * MENINGOCOCAL MENINGITIS(Given 01/11/2013) * MMR(Given 04/13/2007, 08/29/2003) * PNEUMOCOCCAL PCV7 CONJ, PEDS(Given 05/29/2005, 05/26/2003, 01/21/2003, 2002) * POLIO IPV(Given 04/13/2007, 08/29/2003, 01/21/2003, 2002) * TDAP (7yrs+)(Given 05/04/2014) * VARICELLA(Given 06/06/2006, 05/26/2003) Social History Tobacco Use Types Packs/Day Years Used Date Smoking Tobacco: Never Assessed Sex and Gender Information Value Date Recorded Sex Assigned at Not on file Gender Identity Not on file Sexual Orientation Not on file Last Filed Vital Signs Vital Sign Reading Time Taken Comments Blood Pressure 106/78 05/04/2014 4:39 PM CDT Pulse 94 05/04/2014 4:39 PM CDT Temperature 37.1 ??C (98.8 ??F) 05/04/2014 4:39 PM CD T Respiratory Rate - - Oxygen Saturation 91% 05/04/2014 4:39 PM CDT Inhaled Oxygen Concentration - - Weight 47.4 kg (104 lb 8 oz) 02/29/2016 11:06 AM CDT Height 156.8 cm (5' 1.73 ) 02/29/2016 11:06 AM C DT Body Mass Index 19.28 02/29/2016 11:06 AM CDT Procedures * PATHOLOGY TISSUE(Performed 04/16/2022) Performed for Illness, unspecified * URINALYSIS AUTO - POINT OF CARE (AMB) SMGS(Performed 05/04/2014) Performed for Urinary frequency Results * PATHOLOGY TISSUE (04/16/2022 10:47 AM CDT) Case Report Surgical Pathology Report ? Case: [id number] ? Authorizing Provider: ??Stanley Caicedo MD ?Collected: ? 04/16/2022 10:47 AM ? Ordering Location: ? [facility] ? Received: ?04/18/2022 12:37 PM ? Pathologist: ? Lizzie Pak Mai, DO ? Specimen: ?Lymph Node Biopsy ? 04/20/2022 1:11 PM CDT [facility] Final Diagnosis Left neck lymph node, needle core biopsy: - Scant lymphoid tissue - No morphologic or immunophenotypic evidence of malignancy, as sampled 04/20/2022 1:11 PM CDT [facility] Microscopic Description and Comment Sections show scant fragments of lymphoid tissue with small mature lymphocytes and some admixed histiocytes. There is no significant plasmacytosis, eosinophilia or acute inflammation. No Hodgkin Montana-Jaida (HRS)-like cells are seen on routine stain. Properly controlled immunohistochemical stains were performed with the following results: CD3: Stains abundant background T cells CD20: Stains B cells BCL6: Stains a subset of the B cells but does not reveal any well-formed germinal centers BCL2: Highlights T cells CD30: Stains rare scattered immunoblasts, no Hodgkin Tpbz-Tyjafxnaw-wtqu cells are seen COMMENT: The tissue is very small but did not reveal diagnostic evidence of lymphoma, acute inflammation or granulomatous inflammation (as sampled). Concurrent flow cytometric analysis did not reveal any significant lymphoid immunophenotypic abnormalities. Correlation with clinical and radiologic findings is required. 04/20/2022 1:11 PM [facility] Clinical History Enlarged lymph nodes. Shoulder pain, mild hemoptysis, left-sided maxillary pain. 04/20/2022 1:11 PM [facility] Materials Received Received are 5 slide(s) and 1 block (A1) labeled [id number] along with a copy of the outside pathology report. The materials originate from [facility], [address] [place] [address]. All original materials are returned to the referring institution, along with a copy of our final report. 04/20/2022 1:11 PM [facility] Disclaimer The performance characteristics of all immunohistochemical and indirect immunofluorescence stains (if any) cited in this report were determined by the Histopathology Laboratory of [facility]. Some of these tests were developed by our own laboratory and have not been cleared or approved by the US Food and Drug Administration. The FDA does not require this test to go through premarket FDA review. These tests are used for clinical purposes. They should not be regarded as investigational or for research. This laboratory is certified under the Clinical Laboratory Improvement Amendments (CLIA) as qualified to perform high complexity clinical laboratory testing. This case has been personally reviewed and interpreted by the attending (teaching) pathologist. 04/20/2022 1:11 PM [facility] Embedded Images 04/20/2022 1:11 PM [facility] Pathology/Cytolo gy BIOPSY OF LYMPH NODE / Unknown 04/16/2022 10:47 AM CDT 04/18/2022 12:37 PM CDT Stanley Caicedo MD LAB - PATHOLOGY/CYTO LOGY ORDERABLES [facility] LAB [address] [place] [address], [facility] [phone] * URINALYSIS AUTO - POINT OF CARE (AMB) SMGS (05/04/2014) Clarity UA POCT Color UA POCT Glucose UA Negative Bilirubin UA POCT Negative Ketone UA Negative Specific [place] UA POCT 1.020 1.002 - 1.030 Blood UA POCT Negative pH UA 7.5 5.0 - 8.0 pH units Protein UA POCT Negative Urobilinogen UA 1.0 0.1 - 1.0 Nitrite UA POCT Negative Leukocyte UA Negative QC Verified Yes Urine specimen (specimen) URINE / Unknown 05/04/2014 Niki Mcneal APRN-ASSOCIATE PROFESSOR OF ART LAB - POINT OF CAR E ORDERABLES Care Teams Fish Hatchery Specialist Relationship Specialty Start Date End Date Ronal Jane PA [address] [place] [phone] PCP - General 04/22/22 Vicenta Damian MD [address] [place] [address] [address] [place] [address] Pediatrics 12/10/17
--- OUTSIDE RECORDS SUMMARY | 2024-12-07 14:22 | XMS_ITS | Encounter Summary ---
Author Organization [facility] Address [address] [place] [address] Care Team Providers Care Supply Cataloguer Name Role Phone Vicenta Damian MD Primary Care Provider [phone] Vicenta Damian MD Unavailable [phone] Ronal Jane Primary Care Provider + Encounter Details Date Type Department Care Team (Late st Contact Info) Description 04/18/2022 Lab Requisition [facility] Pathology Lab [address] [place] [address] Stanley Caicedo MD [address] [place] [id number] Illness, unspecified Social History Tobacco Use Types Packs/Day Years Used Date Smoking Tobacco: Never Assessed Sex and Gender Information Value Date Recorded Sex Assigned at Not on file Gender Identity Not on file Sexual Orientation Not on file documented as of this encounter Plan of Treatment Not on file documented as of this encounter Procedures Procedure Name Priority Date/Time Associated Diagnosis Comments PATHOLOGY TISSUE Routine 04/16/2022 10:4 7 AM CDT Illness, unspecified documented in this encounter Results * PATHOLOGY TISSUE (04/16/2022 10:47 AM CDT) Case Report Surgical Pathology Report ? Case: [id number] ? Authorizing Provider: ??Stanley Caicedo MD ?Collected: ? 04/16/2022 10:47 AM ? Ordering Location: ? [facility] Lab ? Received: ?04/18/2022 12:37 PM ? Pathologist: ? Lizzie Pak Mai, DO ? Specimen: ?Lymph Node Biopsy ? 04/20/2022 1:11 PM CDT [facility] Final Diagnosis Left neck lymph [...] CD30: Stains rare scattered immunoblasts, no Hodgkin Ipzp-Dwndupybl-ngwe cells are seen COMMENT: The tissue is very small but did not reveal diagnostic evidence of lymphoma, acute inflammation or granulomatous inflammation (as sampled). Concurrent flow cytometric analysis did not reveal any significant lymphoid immunophenotypic abnormalities. Correlation with clinical and radiologic findings is required. 04/20/2022 1:11 PM [facility] PATH[facility] Clinical History Enlarged lymph nodes. Shoulder pain, mild hemoptysis, left-sided maxillary pain. 04/20/2022 1:11 PM [facility] Materials Received Received are 5 slide(s) and 1 block (A1) labeled [id number] along with a copy of the outside pathology report. The materials originate from [place] [address]. All original materials are returned to the referring institution, along with a copy of our final report. 04/20/2022 1:11 PM [facility] Disclaimer The performance characteristics of all immunohistochemical and indirect immunofluorescence stains (if any) cited in this report were determined by the Histopathology Laboratory of [facility]. Some of these tests were developed by [...] the attending (teaching) pathologist. 04/20/2022 1:11 PM [facility] PATH[facility] LAB Embedded Images 04/20/2022 1:11 PM [facility] Pathology/Cytolo gy BIOPSY OF LYMPH NODE / Unknown 04/16/2022 10:47 AM CDT 04/18/2022 12:37 PM CDT Stanley Caicedo MD LAB - PATHOLOGY/CYTO LOGY ORDERABLES [facility] PATH[facility] LAB [address] [place] [address], [facility] [phone] documented in this encounter Visit Diagnoses Diagnosis Illness, unspecified documented in this encounter Care Teams Supply Cataloguer Relationship Specialty Start Date End Date Vicenta Damian MD [address] [facility] [address] [place] [address] PCP - General Pediatrics 12/10/17 04/21/22 [place] [address] [place] [phone] PCP - General 04/22/22 Vicenta Damian MD [address] [facility] [address] [place] [address] Pediatrics 12/10/17 documented as of this encounter
--- OUTSIDE RECORDS SUMMARY | 2024-12-07 14:22 | XMS_ITS | Referral Summary ---
Author Organization [facility] Address [address] [place] [address] Care Team Providers Care Motor Route Carrier Name Role Phone Vicenta Damian MD Unavailable [phone] Ronal Jane Primary Care Provider + Source Comments [facility] Affiliates and Associated Physician Practices is amultiple site organization consisting of ambulatory clinics and hospital sitesin [place], [place], [place] and [place]. This disclosure is being madepursuant to the Care Everywhere program and may not contain all information available regarding this patient. Last updated 18.[facility] Allergies No known active allergies Medications * Be aware that medications may not be up to date on this document. Alwaysverify current medications with the patient. Medication Sig Dispensed Refills Start Date End Date Status FLUoxetine (PROZAC) 20 MG capsule Take 20 mg by mouth once daily. 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 ADHD (attention deficit hyperactivity disorder) 04/15/2013 Immunizations Name Administration Dates Next Due DTaP VACCINE IM (6wk-6yrs) 04/13/2007,,05/26/2003,01/21/2003, HEP A PEDS 2 DOSE 08/19/2014,05/08/2009 HEP B VACCINE, PED/ADOL 05/26/2003,01/21/2003, HIB-PRP-T 4 DOSE 08/29/2003,05/26/2003, 3,2002 Human Papilloma Virus Vaccine 08/19/2014 MENINGOCOCAL MENINGITIS 01/11/2013 MMR 04/13/2007,08/29/2003 PNEUMOCOCCAL PCV7 CONJ, PEDS 05/29/2005,05/26/20 03,01/21/2003,2002 POLIO IPV 04/13/2007,08/29/2003,01/21/2003 ,2002 TDAP (7yrs+) 05/04/2014 VARICELLA 06/06/2006,05/26/2003 Social History Tobacco Use Types Packs/Day Years [...] Mass Index 19.28 02/29/2016 11:06 AM CDT Plan of Treatment Not on file Care Teams Motor Route Carrier Relationship Specialty Start Date End Date Ronal Jane PA [address] [place] [phone] PCP - General 04/22/22 Vicenta Damian MD [address] [place] [address] [address] [place] [address] Pediatrics 12/10/17
--- OUTSIDE RECORDS SUMMARY | 2024-12-07 14:22 | XMS_ITS | Clinical Summary ---
Author Organization [facility] [employer] Address [address] [place] [address] Care Team Providers Care Cement Truck Loader Name Role Phone Vicenta Damian MD Unavailable [phone] Ronal Jane Primary Care Provider + Source Comments [facility] Affiliates and Associated Physician Practices is amultiple site organization consisting of ambulatory clinics and hospital sitesin [place], [place]. This disclosure is being madepursuant to the Care Everywhere program and may not contain all information available regarding this patient. Last updated 18.[facility] [employer] Allergies No known active allergies Medications * [...] 04/13/2007,08/29/2003,01/21/2003 ,2002 TDAP (7yrs+) 05/04/2014 VARICELLA 06/06/2006,05/26/2003 Family History Medical History Relation Name Comments ADHD Father Mental Illness Father jose guadalupe Asthma Mother Diabetes Mother Heart Disease Mother Heart Disease Sister Mental Illness Sister jose guadalupe syndro me Relation Name Status Comments Father Mother Sister Social History Tobacco Use Types Packs/Day Years [...] 02/29/2016 11:06 AM CDT Plan of Treatment Health Maintenance Due Date Last Done Comments PAP SMEAR 2002 HPV VACCINE (2 - 2-dose series) 02/17/2015 08/19/2014 HIV SCREENING 2017 CHLAMYDIA/GONORRHEA SCREENING 2018 MENINGOCOCCAL (Group B) VACCINE (1 of 2 - Standard) 2018 HEPATITIS C SCREENING 05/17/2020 DTAP/TDAP/TD VACCINES (6 - Td or Tdap) 05/04/2024 05/04/2014, 04/13/2007, 08/29/2003, Additional history exists COVID-19 VACCINE ( - season) 2024 INFLUENZA VACCINE (#1) 2024 DEPRESSION SCREENING 11/10/2024 ZOSTER VACCINE (1 of 2) 2052 HEPATITIS B VACCINE Completed 05/26/2003, 01/21/2003, 2002 HIB VACCINE Completed 08/29/2003, 05/10, 01/21/2003, Additional history exists PNEUMOCOCCAL VACCINE Completed 05/29/2005, 05/26/2003, 01/21/2003, Additional history exists MENINGOCOCCAL VACCINE Aged Out 01/11/2013 No zhao kevin eligible based on patient's age to complete this topic Care Teams Cement Truck Loader Relationship Specialty Start Date End Date Ronal Jane PA [address] [place] [phone] PCP - General 04/22/22 Vicenta Damian MD [address] [place] [address] [place] [id number] Pediatrics 12/10/17
[2024-12-07 15:10] LABS: Total Triiodothyronine (T3) 1.65 NG/ML (0.97-1.69)
[2024-12-07 15:46] LABS: Free T4 Free Thyroxine 1.22 ng/dL (0.78-2.19)
[2024-12-07 19:29] LABS: Hemoglobin A1C 5.1 % (<5.7)
== END 2024-12-07 13:43 | disposition home or self-care (01) ==
LOC: ANHLAB 13:44
DX: R53.82 Chronic fatigue, unspecified (principal); R73.01 Impaired fasting glucose
CPT/HCPCS: 36415; 83036; 84439; 84443; 84480

== ENCOUNTER 2025-01-16 14:38 | Emergency (ER) | payer OTHER, SELFPAY ==
[2025-01-16 14:50] VITALS: BP 129/68; PULSE 67; RESP 16; TEMP 36.3; O2SAT 100
--- NOTE | 2025-01-16 15:03 | ED.URI ---
HPI - URI/Sore Throat General Chief Complaint: Upper Respiratory Infection Stated Complaint: sore throat,ear pain Time Seen by Provider: 01/16/25 15:03 Source: patient, RN notes reviewed and old records reviewed Mode of arrival: ambulatory Limitations: no limitations History of Present Illness HPI Narrative: [age] year presents to the [facility] with complaints of severe throat and runny nose since yesterday. Reports ear discomfort. States that on and Friday she started just not feeling well. Denies any fevers, headache. No treatment prior to Related Data Home Medications ?Medication ?Instructions ?Recorded ?Confirmed ?Last Taken ?Type hydroxyzine HCl 25 mg tablet mg 01/16/25 Unknown History Allergies Allergy/AdvReac Type Severity Reaction Status Date / Time No Known Allergies Allergy Verified 01/16/25 14:51 Review of Systems Review of Systems: All systems reviewed & are unremarkable except as noted in HPI and below Constitutional: Constitutional: Reports as per HPI ENT: Reports as per HPI Cardiovascular: Cardiovascular: Reports no additional cardiovascular complaints, Denies chest pain and Denies dyspnea Respiratory: Respiratory: Reports no additional respiratory complaints, Denies chest congestion, Denies cough and Denies dyspnea Musculoskeletal: Musculoskeletal: Reports no additional musculoskeletal complaints Integumentary/Breasts: Skin/Breast: Reports system reviewed and no additional complaints, except as docu PMFSH Past Medical History Medical History PTSD (post-traumatic stress disorder) Anxiety Surgical History Surgical History S/P tonsillectomy No pertinent past surgical history Social History Social History Smoking status: Never smoker Alcohol intake: never Substance use: never Lack of Transportation: No Lack of Food: Never True Current Housing: I Have Housing Concerned About Future Housing: No Difficulty Paying Gas/Electric Bills: No Difficulty Paying for Meds: No Currently Unemployed: Decline to Answer Education: High School Diploma/GED Difficulty w/ Childcare or Family Care: No Living arrangements: with family Occupation/Education: student Gender identity (if verbalized by the patient): Female Sexual Orientation (if Verbalized by the Patient): Straight or Heterosexual Spiritual care concerns: No Comments At the time of my signature, I reviewed and agree with the nursing past medical, surgical, social, and family history. There is no relevant family history pertinent to the patient complaint. Exam Const: General: cooperative, healthy appearing, comfortable, no acute distress, well developed, alert and well nourished Nutritional Appearance: well nourished Orientation/consciousness: patient oriented x3 Limitations: no limitations HENMT: Head: normal to inspection Ears: hearing grossly normal bilaterally, external ears normal, TM's normal bilaterally, EAC's normal, mastoids normal and no periauricular adenopathy Mouth: Yes Normal oral and palatal mucosa present, Yes lip normal, Yes tongue normal and Yes moist mucous membranes Throat: posterior oropharynx normal, uvula midline and no uvular edema Eyes: General: appearance normal, both eyes and all related structures Alignment and Position: alignment normal Neck: Neck: normal visual inspection, full ROM, no lymphadenopathy and no meningeal signs Chest: Chest palpation & inspection: normal inspection of the chest Resp: Effort & Inspection: normal respiratory effort and able to speak in complete sentences Auscultation: clear to auscultation bilaterally, no crackles, no rales, no rhonchi and no wheezes Cardio: Rate: regular rate Skin: General skin exam: normal color and no rashes or lesions noted Neuro: General: patient oriented x3, gait normal, moves all extremities and no meningeal signs Cognition (Neuro): normal cognition Speech: normal speech Gait exam (Neuro): Normal gait present Extrem: General: normal to inspection, full ROM, capillary refill normal and normal gait Psych: Appearance: grossly normal and well kempt Mental Status: mental status grossly normal Speech and movement: Normal speech and movement present and Clear speech present Affect: normal affect Attitude: cooperative Course Course Level of Care: Express Care Visit Vital Signs Vital signs: Vital Signs Temperature 97.3 F L 01/16/25 14:50 Pulse Rate 67 01/16/25 14:50 Respiratory Rate 16 01/16/25 14:50 Blood Pressure 129/68 01/16/25 14:50 Pulse Oximetry 100 01/16/25 14:50 Oxygen Delivery Room Air 01/16/25 14:50 Temperature 97.3 F L 01/16/25 14:50 Pulse Rate 67 01/16/25 14:50 Respiratory Rate 16 01/16/25 14:50 Blood Pressure 129/68 01/16/25 14:50 Pulse Oximetry 100 01/16/25 14:50 Oxygen Delivery Room Air 01/16/25 14:50 Reviewed MDM - URI/Sore Throat MDM Narrative Medical decision making narrative: Patient sitting exam. Nontoxic patient in acute distress. Patient presents with couple days of just not feeling well. URI symptoms worsened yesterday. No acute findings noted on exam. Patient is negative for flu COVID strep, will culture Patient appropriate for outpatient treatment and follow-up Discharge instructions reviewed with patient, as well as provided in writing per nursing staff. The instructions also include specific and strict return/GO TO THE ER as well as f/u information. All questions have been answered, and the patient deny any further questions with discharge and discharge plan. Some parts of this dictation were generated by voice recognition software and may contain typographical and/or grammatical inaccuracies. Differential Diagnosis Differential diagnosis: Likely upper respiratory infection, otitis media, sinusitis, viral infection, bronchitis, influenza and pharyngitis Lab Data Labs: Lab Results 01/16/25 Range/Units 15:11 POC Influenza A Ag Negative (Negative) POC Influenza B Ag Negative (Negative) POC SARS CoV-2 Ag Negative (Negative) POC Grp A Strep Screen Negative (Negative) Reviewed Critical Care Time Critical Care Time Critical Care Time: No Discharge Plan Discharge Clinical Impression: Acute viral pharyngitis Upper respiratory infection Qualifiers: URI type: unspecified URI Qualified Code(s): J06.9 - Acute upper respiratory infection, unspecified Patient Disposition: Home, Self-Care Condition: Stable Instructions: Antibiotic Form, Upper Respiratory Infection (DC), Postnasal Drip (DC) Additional Instructions: Your rapid strep swab was negative today at [facility]. A throat culture will be sent to the laboratory for further testing. If the test is positive, you will receive a phone call within 48 hours and an appropriate antibiotic will be initiated at that time. Your rapid COVID test were negative Your rapid flu test was negative Your symptoms are likely due to a viral illness, which is not treated with antibiotics. Typically viral infections last 7-10 days, can linger for couple of weeks. It is very important to treat your symptoms. Drink plenty of water, Gatorade, Pedialyte, ice pops or Jell-O. -Alternate Tylenol and Motrin per package directions for fever or pain. You can alternate every 4 hours -Antihistamine medication such as Zyrtec/Claritin/Kaylin during the day can help improve symptoms. -doing daily nasal irrigations can help relieve pressure your sinuses. Things like a Neti pot -Use Flonase twice a day for 5 days then daily to help reduce the inflammation and dry up your sinuses. -You can also use Mucinex. Be sure to drink plenty of water with this medication at least 8 ounces with every dose and it is important to drink 8 to 10 glasses of water per day. Water is a natural decongestant -Eat and drink things that are easy to swallow, like tea or soup, or popsicles. -Oral rinses such as: Salt water gargles and/or may use topical anesthetic (eg. Chloraseptic spray) or lozenges to relieve dryness or throat pain). -Frequent hand washing or hand legal examiner is one of the best ways to prevent spread of infection. -Using a vaporizer or humidifier at night will also help thin secretions and help with coughing up phlegm. -Follow up with primary care provider in 7-10 days if condition is not improving - For new or worsening symptoms go directly to the nearest ER Patient Language: Upper Sorbian Prescriptions: No Action hydroxyzine HCl 25 mg tablet Follow-up/Referrals: Julián Patrick MD [Primary Care Provider] - 1 Week ([facility] follow-up) Stand Alone Forms: Work/School Release IP Time of Disposition: 15:18
[2025-01-16 15:28] LABS: EDCOVIDSCREEN Negative (Negative); EDINFLUASCREEN Negative (Negative); EDINFLUBSCREEN Negative (Negative); EDSTREPNEGPOS1 Negative (Negative)
== END 2025-01-16 15:25 | disposition home or self-care (01) ==
PROVIDERS: Emergency Provider Nurse Practitioner; PCP Family Medicine
DX: J02.8 Acute pharyngitis due to other specified organisms (principal); J06.9 Acute upper respiratory infection, unspecified; Z20.822 Contact with and (suspected) exposure to COVID-19
CPT/HCPCS: 87081; 87426; 87804; 87880; 99213; G0463

== ENCOUNTER 2025-01-26 12:40 | Emergency (ER) | payer OTHER, SELFPAY ==
--- NOTE | ~2025-01-26 | XR_ITS ---
XR hand LT min 3V Ordering provider: Ish Minaya MD History: . FALL/BRUISING/PAIN . Comparison: September 06, 2019 FINDINGS: BONES: No acute fracture or dislocation. JOINT SPACES: Well maintained. SOFT TISSUES: Unremarkable. IMPRESSION: No acute osseous abnormality left hand. Reviewed, dictated and finalized at location A.
[2025-01-26 12:42] VITALS: BP 128/84; PULSE 96; RESP 16; TEMP 36.8; O2SAT 99
--- OUTSIDE RECORDS SUMMARY | 2025-01-26 14:03 | XMS_ITS | Clinical Summary ---
Author Organization [facility] [employer] Address [address] [place] [address] Care Team Providers Care Wrestling Coach Name Role Phone Vicenta Damian MD Unavailable [phone] Ronal Jane Primary Care Provider + Source Comments [facility],non-[facility] Affiliates and Associated Physician Practices is amultiple site organization consisting of ambulatory clinics and hospital sitesin [place], [place], [place] and [place]. This disclosure is being madepursuant to the Care Everywhere program and may not contain all information available regarding this patient. Last updated 18.[facility] [employer] Allergies No known active allergies Medications * [...] Heart Disease Sister Mental Illness Sister jose guadaulpe syndro me Relation Name Status Comments Father [...] 94 05/04/2014 4:39 PM CDT Temperature 37.1 C (98.8 F) 05/04/2014 4:39 PM CDT Respiratory Rate - - Oxygen Saturation 91% [...] CHLAMYDIA/GONORRHEA SCREENING 2018 MENINGOCOCCAL (Group B) VACCINE SHARED DECISION-MAKING (1 of 2 - Standard) 2018 HEPATITIS C SCREENING 05/17/2020 DTAP/TDAP/TD VACCINES (6 - Td or Tdap) 05/04/2024 05/04/2014, 04/13/2007, 08/29/2003, Additional history exists COVID-19 VACCINE ( season) 2024 INFLUENZA VACCINE (#1) 2024 DEPRESSION SCREENING 11/10/2024 ZOSTER VACCINE (1 of 2) 2052 HEPATITIS B VACCINE Completed 05/26/2003, 01/21/2003, 2002 HIB VACCINE Completed 08/29/2003, 05/10, 01/21/2003, Additional history exists PNEUMOCOCCAL VACCINE Completed 05/29/2005, 05/26/2003, 01/21/2003, Additional history exists MENINGOCOCCAL GROUPS A/C/Y/W VACCINE Aged Out 01/11/2013 No longer eligible based on patient's age to complete this topic Care Teams Wrestling Coach Relationship Specialty Start Date End Date Ronal Jane PA [address] [place] [phone] PCP - General 04/22/22 Vicenta Damian MD [address] [place] [address] [address] [place] [address] Pediatrics 12/10/17
--- OUTSIDE RECORDS SUMMARY | 2025-01-26 14:03 | XMS_ITS | Encounter Summary ---
Author Organization [facility] Address [address] [place] [address] Care Team Providers Care Services Account Manager Name Role Phone Vicenta Damian MD Primary Care Provider [phone] Vicenta Damian MD Unavailable [phone] Ronal Jane Primary Care Provider + Encounter Details Date Type Department Care Team (Late st Contact Info) Description 04/18/2022 Lab Requisition [facility] [address] [place] [address] Stanley Caicedo MD [address] [place] [id number] Illness, unspecified Social History Tobacco Use Types [...] AM CDT) Case Report Surgical Pathology Report Case: [id number] Authorizing Provider: Stanley Caicedo MD Collected: 04/16/2022 10:47 AM Ordering Location: [facility] Received: 04/18/2022 12:37 PM Pathologist: Lizzie Pak Mai, DO Specimen: Lymph Node Biopsy 04/20/2022 1:11 PM CDT [facility] Final Diagnosis Left neck lymph node, needle core biopsy: - Scant lymphoid tissue - No morphologic or immunophenotypic evidence of malignancy, as sampled 04/20/2022 1:11 PM CDT [facility] Microscopic Description and Comment Sections [...] CD30: Stains rare scattered immunoblasts, no Hodgkin Zfly-Ehthufweq-knmc cells are seen COMMENT: The tissue is very small but did not reveal diagnostic evidence of lymphoma, acute inflammation or granulomatous inflammation (as sampled). Concurrent flow cytometric analysis did not reveal any significant lymphoid immunophenotypic abnormalities. Correlation with clinical and radiologic findings is required. 04/20/2022 1:11 PM CDT [facility] Clinical History Enlarged lymph nodes. Shoulder pain, mild hemoptysis, left-sided maxillary pain. 04/20/2022 1:11 PM CDT [facility] Materials Received Received are 5 slide(s) and 1 block (A1) labeled [id number] along with a copy of the outside pathology report. The materials originate from [facility], [address] [place] [address]. All original materials are returned to the referring institution, along with a copy of our final report. 04/20/2022 1:11 PM CDT [facility] Disclaimer The performance characteristics of all immunohistochemical and indirect immunofluorescence stains (if any) cited in this report were determined by the Histopathology Laboratory of [facility]. Some of these tests were developed [...] the attending (teaching) pathologist. 04/20/2022 1:11 PM CDT [facility] Embedded Images 04/20/2022 1:11 PM CDT [facility] Pathology/Cytolo gy BIOPSY OF LYMPH NODE / Unknown 04/16/2022 10:47 AM CDT 04/18/2022 12:37 PM CDT Stanley Caicedo MD LAB - PATHOLOGY/CYTO LOGY ORDERABLES Performing Organization Address City/State/[facility] Co de Phone Number [facility] [address] [phone] documented in this encounter Visit Diagnoses Diagnosis Illness, unspecified documented in this encounter Care Teams Services Account Manager Relationship Specialty Start Date End Date Vicenta Damian MD [facility] [address] [address] PCP - General Pediatrics 12/10/17 04/21/22 Ronal Jane PA [address] [place] [phone] PCP - General 04/22/22 Vicenta Damian MD [facility] [address] [place] [id number] Pediatrics 12/10/17 documented as of this encounter
--- OUTSIDE RECORDS SUMMARY | 2025-01-26 14:04 | XMS_ITS | Referral Summary ---
Author Organization [facility] at the Medical Office Building Address [address] [place] [phone] Care Team Providers Care Ob/Gyn Doctor Name Role Phone Julián Patrick MD Primary Care Provider Encounters Date Type Department Care Team Description 11/04/2024 1:45 PM REGISTRAR MUSEUM - 11/04/2024 11:59 PM REGISTRAR MUSEUM Hospital Encounter [facility] Cardiac Diagnostic Lab [address] [facility] [address] [place] [address] Syncope, unspecified syncope type Discharge Disposition: Discharge to home or self care from Last 3 Months Allergies No known active allergies Medications melatonin 10 mg tablet Active benzoyl peroxide 5 % external liquid APPLY TO BACK AND FACE TWICE DAILY Active clindamycin (CLEOCIN T) 1 % lotion APPLY TOPICALLY TO THE AFFECTED AREA TWICE DAILY Active Active Problems Problem Noted Date Diagnosed Date Lymphadenopathy 02/05/2024 Neck mass 01/13/2024 CSF leak from nose 01/04/2024 Coronavirus infection 01/04/2024 Closed skull base fx 01/04/2024 Contraceptive patch status 01/08/2022 Anxiety and depression 01/11/2021 Overview (06/17/2021): 01/11/2021 started on Lexapro 06/17/2021 -skk: The patient states that she never started the Lexapro prescription, and that she has been doing well emotionally. Plan for depression assessment within 2 weeks following discharge Resolved Problems Problem Noted Date Diagnosed Date Resolved Date (normal spontaneous vaginal delivery) 06/18/2021 01/08/2022 Choroid plexus cyst, , affecting care of mother, antepartum, single gestation 02/13/202111/2021 Social History Tobacco Use Types Packs/Day Years Used Date Smoking Tobacco: Never Smokeless Tobacco: Never Alcohol Use Standard Drinks/Week Comments Never 0 (1 standard drink = 0.6 oz pur e alcohol) AUDIT-C Answer Date Recorded Q1: How often do you have a drink containing alc ohol? Never 06/17/2021 Average Number of Drinks Not on file 021 Frequency of Binge Drinking Not on file 06/2021 [place] Depression Scale Answer Date Recorded [place] Depression Scale Total 3 08/03/2021 The thought of harming myself has occurred to me . Never 08/03/2021 Personal Safety Answer Date Recorded Have you ever been in or are you currently in a harmful physical or emotional relationship or is someone making you feel afraid or unsafe? Denies 08/21/2024 Comments No Sex and Gender Information Value Date Recorded Sex Assigned at Not on file Legal Sex Female 12:13 PM REGISTRAR MUSEUM Gender Identity Female 01/05/2021 7:28 PM REGISTRAR MUSEUM Sexual Orientation Straight 01/05/2021 7: 28 PM REGISTRAR MUSEUM Last Filed Vital Signs Vital Sign Reading Time Taken Comments Blood Pressure 122/80 10/25/2024 2:21 PM REGISTRAR MUSEUM Pulse 79 10/25/2024 2:21 PM REGISTRAR MUSEUM Temperature 36.8 C (98.3 F) 08/21/2024 12:03 PM CDT Respiratory Rate 18 10/25/2024 2:21 PM REGISTRAR MUSEUM Oxygen Saturation 99% 10/25/2024 2:21 PM REGISTRAR MUSEUM Inhaled Oxygen Concentration - - Weight 54.4 kg (120 lb) 10/25/2024 2:21 PM REGISTRAR MUSEUM Height 154.9 cm (5' 1 ) 10/25/2024 2:21 PM REGISTRAR MUSEUM Body Mass Index 22.67 10/25/2024 2:21 PM REGISTRAR MUSEUM Plan of Treatment Not on file Procedures Procedure Name Priority Date/Time Associated Diagnosis Comments TRANSTHORACIC ECHO (TTE) COMPLETE W DOPPLER/CF WO CONTRAST Routine 11/04/2024 2:38 PM REGISTRAR MUSEUM Syncope, unspecified syncope type HEPATITIS C ANTIBODY Routine 11/15/2020 3:35 PM REGISTRAR MUSEUM Positive test from Last 3 Months or Most Recently Relevant to Health Maintenance Results * TRANSTHORACIC ECHO (TTE) COMPLETE W DOPPLER/CF WO CONTRAST (11/04/2024 2:38 PM REGISTRAR MUSEUM) LV EF 60 % CARDIOREPORT Anatomical Region Laterality Modality Ultrasound 11/04/2024 1:45 PM REGISTRAR MUSEUM Narrative 11/05/2024 9:38 AM REGISTRAR MUSEUM Patient name: Marce Fan Date of test: 11/04/2024 Type of test: TTE w/Doppler Hospital #: 0 Date of : 2000 (F) Quill Layer: Ernestine Jay RDCS Referring Physician: BENEDICT PERDOMO MD Contrast Agent: Contrast Administered by: Supervised/Interpreted by: Wilder Farr MD Diagnosis: Location: [facility] Reason for test: syncope MV Structure: Normal, MV Motion: Normal, Mitral Annulus: Normal AV Structure: not well seen and is Normal, AV Motion: Normal Aotic root: Normal, TM: Normal, PV: not well seen Valvular Vegetations: none seen, Mass/Thrombi: none seen RA: Normal Measurements: M-Mode Normal Aotic Root: <3.8 LA: <3.8 RV: <2.8 LV(ED): <5.7 LV(ES): Variable 2D Linear Normal Aotic Root: 2.4 cm <3.6 Ao Indexed: 1.6 cm/M2 <2.0 LA: <3.8 RV: 3.4 cm <4.2 LV(ED): 4.4 cm <5.3 LV(ES): 2.9 cm <3.5 2D Vol. Normal Indexed Indexed Normal RA: 15.0 ml 9.9 ml/M2 9-33 LA: 29.0 ml 19.1 ml/M2 16-34 RV: <11.6 LV(ED): 94.0 ml 46-106 61.8 ml/M2 <62 LV(ES): 38.0 ml 14-42 25.0 ml/M2 <25 3D Vol. Indexed Normal LV(ED): <62 LV(ES): <24 LV EF: 60 % (Normal: >=54%) LV Septum: 0.7 cm (Normal: <0.9 cm) Wall Motion Scoring (1=Normal 2=Hypo 3=Akinetic 4=Dyskin./Aneurysm 0=Not visualized) Parasternal Long [place]:MAS=1 BAS=1 MIL=1 SRINIVASA=1 Parasternal Short [place]:MAS=1 MIS=1 NE=1 MIL=1 MAL=1 MA=1 Apical 4 Chambers:=1 MIS=1 BIS=1 BAL=1 MAL=1 AL=1 AC=1 Apical 2 Chambers:AI=1 NE=1 BI=1 BA=1 MA=1 AA=1 AC=1 LV Global Longitudinal Strain: RV Global Longitudinal Strain: LV Function: Normal LV Ejection Fraction, (EF=54-74%) RV Function: Normal Septal Motion: Normal Pericardial Effusion: none seen Atrial Septum: Normal DOPPLER/COLOR FLOW DOPPLER RESULTS: Diastolic Function: Normal Tricuspid Valve: No TR Pulmonic Valve: No PA AV Regurgitation: No AR seen AV Stenosis: no AV Area: cm2 AV Pressure Gradient (mmHg): Mean: 0, Peak:0 MV Regurgitation: Trace MR MV Stenosis: no MS MV Area: cm2 MV Pressure Gradient (mmHg): Mean: 0 MV ERO: cm Regurg. Vol.: ml/beat Regurg. Frac.: % PA Pressure: mmHg DOPPLER/COLOR FOLOW DOPPLER COMMENTS: No AR seen, Trace MR, no , no MS, No TR, No PA. Diastolic function: Normal SUMMARY: LA and RA normal in size. Normal LV and RV cavity size with normal systolic function. Normal LV wall thickness/mass. Strain quality is inadequate for accurate reporting. Diastolic function: Normal. No significant valvular abnormalities. Aortic root normal in size. IVC normal in size. There is no previous study for comparison. Confirmed on 11/05/2024 - 09:38:11 by Wilder Farr MD By signing this report, the attending heel seater certifies that he or she has personally supervised and interpreted the echocardiogram and has reviewed and or edited and agrees with the written comments contained within the report. Procedure Note Wilder Farr MD - 11/05/2024 Patient name: Marce Fan Date of test: 11/04/2024 Type of test: TTE /Doppler [facility] #: 0 Date of : 2000 (F) Quill Layer: Ernestine Jay TAWANDA Referring Physician: BENEDICT PERDOMO MD Contrast Agent: Contrast Administered by: Supervised/Interpreted by: Wilder Farr MD Diagnosis: Location: [facility] Reason for test: syncope MV Structure: Normal, MV Motion: Normal, Mitral Annulus: Normal AV Structure: not well seen and is Normal, AV Motion: Normal Aotic root: Normal, TM: Normal, PV: not well seen Valvular Vegetations: none seen, Mass/Thrombi: none seen RA: Normal Measurements: M-Mode Normal Aotic Root: <3.8 LA: <3.8 RV: <2.8 LV(ED): <5.7 LV(ES): Variable 2D Linear Normal Aotic Root: 2.4 cm <3.6 Ao Indexed: 1.6 cm/M2 <2.0 LA: <3.8 RV: 3.4 cm <4.2 LV(ED): 4.4 cm <5.3 LV(ES): 2.9 cm <3.5 2D Vol. Normal Indexed Indexed Normal RA: 15.0 ml 9.9 ml/M2 9-33 LA: 29.0 ml 19.1 ml/M2 16-34 RV: <11.6 LV(ED): 94.0 ml 46-106 61.8 ml/M2 <62 LV(ES): 38.0 ml 14-42 25.0 ml/M2 <25 3D Vol. Indexed Normal LV(ED): <62 LV(ES): <24 LV EF: 60 % (Normal: >=54%) LV Septum: 0.7 cm (Normal: <0.9 cm) Wall Motion Scoring (1=Normal 2=Hypo 3=Akinetic 4=Dyskin./Aneurysm 0=Not visualized) Parasternal Long [place]:MAS=1 BAS=1 MIL=1 SRINIVASA=1 Parasternal Short [place]:MAS=1 MIS=1 NE=1 MIL=1 MAL=1 MA=1 Apical 4 Chambers:=1 MIS=1 BIS=1 BAL=1 MAL=1 AL=1 AC=1 Apical 2 Chambers:AI=1 NE=1 BI=1 BA=1 MA=1 AA=1 AC=1 LV Global Longitudinal Strain: RV Global Longitudinal Strain: LV Function: Normal LV Ejection Fraction, (EF=54-74%) RV Function: Normal Septal Motion: Normal Pericardial Effusion: none seen Atrial Septum: Normal DOPPLER/COLOR FLOW DOPPLER RESULTS: Diastolic Function: Normal Tricuspid Valve: No TR Pulmonic Valve: No PA AV Regurgitation: No AR seen AV Stenosis: no AV Area: cm2 AV Pressure Gradient (mmHg): Mean: 0, Peak:0 MV Regurgitation: Trace MR MV Stenosis: no MS MV Area: cm2 MV Pressure Gradient (mmHg): Mean: 0 MV ERO: cm Regurg. Vol.: ml/beat Regurg. Frac.: % PA Pressure: mmHg DOPPLER/COLOR FOLOW DOPPLER COMMENTS: No AR seen, Trace MR, no , no MS, No TR, No PA. Diastolic function: Normal SUMMARY: LA and RA normal in size. Normal LV and RV cavity size with normal systolic function. Normal LV wall thickness/mass. Strain quality is inadequate for accurate reporting. Diastolic function: Normal. No significant valvular abnormalities. Aortic root normal in size. IVC normal in size. There is no previous study for comparison. Confirmed on 11/05/2024 - 09:38:11 by Wilder Farr MD By signing this report, the attending heel seater certifies that he or she has personally supervised and interpreted the echocardiogram and has reviewed and or edited and agrees with the written comments contained within the report. us Benedict Perdomo MD CV ECHO PROCEDURES Final Result * Hepatitis C antibody (11/15/2020 3:35 PM REGISTRAR MUSEUM) Hep C Ab NONREACT NONREACTIVE [facility] Comment: Siemens [employer]aurXP using LEIGH ANN (chemiluminescent immunoassay) technology. NONREACTIVE: Antibodies to Hepatitis C not detected. This does not exclude early acute Hepatitis C infection, possibility of exposure to Hepatitis C, antibodies below detection limit, or to lack of antibody reactivity to the antigen used in this assay. EQUIVOCAL: Antibodies to Hepatitis C may or may not be present. Sample to be confirmed by real-time PCR method. REACTIVE: Antibodies to Hepatitis C detected.Sample to be confirmed by real-time PCR method. Blood specimen (specimen) 11/15/2020 3:35 PM REGISTRAR MUSEUM 11/15/2020 3:40 PM REGISTRAR MUSEUM Narrative Resulting Agency Comment CLI us Cherelle Gaston [facility] MICROBIOLOGY - GENE RAL ORDERABLES Final Result [facility] [address] [place] [address], [facility] [phone] from Last 3 Months or Most Recently Relevant to Health Maintenance Insurance [facility] MRA Advance Directives For more information, please contact: [phone] * Full Code (Latest Code Status on File) Date Activated Date Inactivated Comments 06/18/2021 12:53 AM 06/20/2021 6:49 PM * Full Code Date Activated Date Inactivated Comments 06/17/2021 10:56 AM 06/18/2021 12:53 AM Full CPR in case of cardiopulmonary arrest Care Teams Ob/Gyn Doctor Relationship Specialty Start Date End Date Julián Patrick MD [address] [place] [id number] PCP - General Family Medicine 02/05/24
--- OUTSIDE RECORDS SUMMARY | 2025-01-26 14:04 | XMS_ITS | Clinical Summary ---
Author Organization [facility] at the Medical Office Building Address [address] [place] [phone] Care Team Providers Care Polymerization Oven Operator Name Role Phone Julián Patrick MD Primary Care Provider [phone] Allergies No known active allergies Medications melatonin 10 mg tablet Active benzoyl peroxide 5 % external liquid APPLY TO BACK AND FACE TWICE DAILY 4 Active clindamycin (CLEOCIN T) 1 % lotion APPLY TOPICALLY TO THE AFFECTED AREA TWICE DAILY 4 Active Active Problems Problem Noted Date Diagnosed [...] care of mother, antepartum, single gestation 02/13/202111/2021 Encounters Date Type Department Care Team Description 11/04/2024 1:45 PM MODEL MAKER PLASTER - 11/04/2024 11:59 PM MODEL MAKER PLASTER Hospital Encounter [facility] Cardiac Diagnostic Lab [address] [phone] Syncope, unspecified syncope type Discharge Disposition: Discharge to home or self care from Last 3 Months Surgical History Surgery Date Site/Laterality Comments EYE SURGERY SINUS SURGERY TONSILLECTOMY AND ADENOIDECTOMY NASAL SEPTOPLASTY W/ TURBINOPLASTY Medical History Medical History Date Comments Depression Anxiety Choroid plexus cyst, , affecting care of mother, antepartum, single gestation 02/13/2021 (normal spontaneous vaginal delivery) 021 Family History Medical History Relation Name Comments Diabetes Mother Hypertension Mother Relation Name Status Comments Maternal Grandmother Mother Social History Tobacco Use Types Packs/Day Years [...] of Binge Drinking Not on file 06/2021 [place] Depression Scale Answer Date Recorded [place] Depression Scale Total 3 08/03/2021 The thought [...] on file Legal Sex Female 12:13 PM MODEL MAKER PLASTER Gender Identity Female 01/05/2021 7:28 PM MODEL MAKER PLASTER Sexual Orientation Straight 01/05/2021 7: 28 PM MODEL MAKER PLASTER Obstetrics History Para Term AB IAB SAB Ectopic Multiple Livin g Live Births 1 1 1 0 1 1 Date Outcome GA Total Labor Labor/2nd/3rd Weight Sex Type Anes PTL Alyse A1 A5 Name Clin 2020 Term 40w 1d 15h 23m 12h 44m/2h 33m/0h 06m 3.33 kg (7 lb 5.5 oz) M Vag-S pont Epidur al N Livin g 7 9 MENG ,BOYS RALPH Stanton , Bebeto Rodriguez MD Delivery Location:[facility]) Last Filed Vital Signs Vital Sign Reading Time Taken Comments Blood Pressure 122/80 10/25/2024 2:21 PM MODEL MAKER PLASTER Pulse 79 10/25/2024 2:21 PM MODEL MAKER PLASTER Temperature 36.8 C (98.3 F) 08/21/2024 12:03 PM CDT Respiratory Rate 18 10/25/2024 2:21 PM MODEL MAKER PLASTER Oxygen Saturation 99% 10/25/2024 2:21 PM MODEL MAKER PLASTER Inhaled Oxygen Concentration - - Weight 54.4 kg (120 lb) 10/25/2024 2:21 PM MODEL MAKER PLASTER Height 154.9 cm (5' 1 ) 10/25/2024 2:21 PM MODEL MAKER PLASTER Body Mass Index 22.67 10/25/2024 2:21 PM MODEL MAKER PLASTER Plan of Treatment Health Maintenance Due Date Last Done Comments Cervical Cancer Screening 2002 Chlamydia and Gonorrhea (GC/ CT) Screening 2002 Meningococcal B Vaccine (2 o f 2 - Trumenba SCDM 2-dose series) 02/04/2021 08/07/2020 Pneumococcal vaccine <65 (1 of 1 - PPSV23) 2021 05/29/2005, 05/26/2003, 01/21/2003, Additional history exists Depression Screening 08/03/2022 08/03/2021 Regular Well Visit/Exam 18-64 11/14/2023 11/14/2022 DTaP/Tdap/Td Vaccine (8 - Td or Tdap) 05/04/2024 05/04/2014, 01/21/2013, 01/11/2013, Additional history exists Influenza Vaccine (#1) 2024 , 10/17/2017, 08/19/2014 Hepatitis B Screening Completed 05/26/2003 , 05/26/2003, 01/21/2003, Additional history exists Varicella Vaccines Completed 06/06/2006, 05/26/2003 HPV Vaccines Completed 08/19/2014, 01/11/2013 Hepatitis C Screening Completed 11/15/2020 Procedures Procedure Name Priority Date/Time Associated Diagnosis Comments TRANSTHORACIC ECHO (TTE) COMPLETE W DOPPLER/CF WO CONTRAST Routine 11/04/2024 2:38 PM MODEL MAKER PLASTER Syncope, unspecified syncope type HEPATITIS C ANTIBODY Routine 11/15/2020 3:35 PM MODEL MAKER PLASTER Positive test from Last 3 Months or Most Recently Relevant to Health Maintenance Results * TRANSTHORACIC ECHO (TTE) COMPLETE W DOPPLER/CF WO CONTRAST (11/04/2024 2:38 PM MODEL MAKER PLASTER) LV EF 60 % CARDIOREPORT Anatomical Region Laterality Modality Ultrasound 11/04/2024 1:45 PM MODEL MAKER PLASTER Narrative 11/05/2024 9:38 AM MODEL MAKER PLASTER Patient name: Marce Fan Date of test: 11/04/2024 Type of test: TTE w/Doppler [facility] #: 0 Date of : 2000 (F) Balance Wheel Hand Filer: Ernestine Jay RDCS Referring Physician: BENEDICT PERDOMO MD Contrast Agent: Contrast Administered by: Supervised/Interpreted by: Wilder Farr MD Diagnosis: Location: [facility] Reason for test: syncope MV Structure: Normal, [...] 2=Hypo 3=Akinetic 4=Dyskin./Aneurysm 0=Not visualized) Parasternal Long [place]:MAS=1 BAS=1 MIL=1 SRINIVASA=1 Parasternal Short [place]:MAS=1 MIS=1 SC=1 MIL=1 MAL=1 MA=1 Apical 4 Chambers:=1 MIS=1 BIS=1 BAL=1 MAL=1 AL=1 AC=1 Apical 2 Chambers:AI=1 SC=1 BI=1 BA=1 MA=1 AA=1 AC=1 LV Global Longitudinal Strain: RV Global Longitudinal Strain: LV Function: Normal LV Ejection Fraction, (EF=54-74%) RV Function: Normal Septal Motion: Normal Pericardial Effusion: none seen Atrial Septum: Normal DOPPLER/COLOR FLOW DOPPLER RESULTS: Diastolic Function: Normal Tricuspid Valve: No TR Pulmonic Valve: No CA AV Regurgitation: No AR seen AV Stenosis: no AV Area: cm2 AV Pressure Gradient (mmHg): Mean: 0, Peak:0 MV Regurgitation: Trace MR MV Stenosis: no MS MV Area: cm2 MV Pressure Gradient (mmHg): Mean: 0 MV ERO: cm Regurg. Vol.: ml/beat Regurg. Frac.: % PA Pressure: mmHg DOPPLER/COLOR FOLOW DOPPLER COMMENTS: No AR seen, Trace MR, no , no MS, No TR, No CA. Diastolic function: Normal SUMMARY: LA and RA [...] MD By signing this report, the attending chainstitch sewing machine operator certifies that he or she has personally supervised and interpreted the echocardiogram and has reviewed and or edited and agrees with the written comments contained within the report. Procedure Note Wilder Farr MD - 11/05/2024 Patient name: Marce Fan Date of test: 11/04/2024 Type of test: TTE w/Doppler [facility] #: 0 Date of : 2000 (F) Balance Wheel Hand Filer: Ernestine Jay TAWANDA Referring Physician: BENEDICT PERDOMO MD Contrast Agent: Contrast Administered by: Supervised/Interpreted by: Wilder Farr MD Diagnosis: Location: [facility] Reason for test: syncope MV Structure: Normal, [...] 2=Hypo 3=Akinetic 4=Dyskin./Aneurysm 0=Not visualized) Parasternal Long [place]:MAS=1 BAS=1 MIL=1 SRINIVASA=1 Parasternal Short [place]:MAS=1 MIS=1 SC=1 MIL=1 MAL=1 MA=1 Apical 4 Chambers:=1 MIS=1 BIS=1 BAL=1 MAL=1 AL=1 AC=1 Apical 2 Chambers:AI=1 SC=1 BI=1 BA=1 MA=1 AA=1 AC=1 LV Global Longitudinal Strain: RV Global Longitudinal Strain: LV Function: Normal LV Ejection Fraction, (EF=54-74%) RV Function: Normal Septal Motion: Normal Pericardial Effusion: none seen Atrial Septum: Normal DOPPLER/COLOR FLOW DOPPLER RESULTS: Diastolic Function: Normal Tricuspid Valve: No TR Pulmonic Valve: No CA AV Regurgitation: No AR seen AV Stenosis: no AV Area: cm2 AV Pressure Gradient (mmHg): Mean: 0, Peak:0 MV Regurgitation: Trace MR MV Stenosis: no MS MV Area: cm2 MV Pressure Gradient (mmHg): Mean: 0 MV ERO: cm Regurg. Vol.: ml/beat Regurg. Frac.: % PA Pressure: mmHg DOPPLER/COLOR FOLOW DOPPLER COMMENTS: No AR seen, Trace MR, no , no MS, No TR, No CA. Diastolic function: Normal SUMMARY: LA and RA [...] MD By signing this report, the attending chainstitch sewing machine operator certifies that he or she has personally supervised and interpreted the echocardiogram and has reviewed and or edited and agrees with the written comments contained within the report. us Benedict Perdomo MD CV ECHO PROCEDURES Final Result * Hepatitis C antibody (11/15/2020 3:35 PM MODEL MAKER PLASTER) Hep C Ab NONREACT NONREACTIVE [facility] Comment: Siemens [employer]aurXP using LEIGH ANN (chemiluminescent immunoassay) technology. NONREACTIVE: [...] method. Blood specimen (specimen) 11/15/2020 3:35 PM MODEL MAKER PLASTER 11/15/2020 3:40 PM MODEL MAKER PLASTER Narrative Resulting Agency Comment CLI us Cherelle [facility] MICROBIOLOGY - GENE RAL ORDERABLES Final Result [facility] [address] [place] [address], [facility] [phone] from Last 3 Months or Most Recently Relevant to Health Maintenance Insurance [facility] MRA Advance Directives For more information, please contact: [phone] * Full Code (Latest Code Status on File) Date Activated Date Inactivated Comments 06/18/2021 12:53 AM 06/20/2021 6:49 PM * Full Code Date Activated Date Inactivated Comments 06/17/2021 10:56 AM 06/18/2021 12:53 AM Full CPR in case of cardiopulmonary arrest Care Teams Polymerization Oven Operator Relationship Specialty Start Date End Date Julián Patrick MD [address] [id number] PCP - General Family Medicine 02/05/24
--- OUTSIDE RECORDS SUMMARY | 2025-01-26 14:04 | XMS_ITS | Encounter Summary ---
Author Organization [facility] [place] [facility] Address [address] [place] [address] Phone Care Team Providers Care Hand Thermal Cutter Name Role Phone Julián Patrick MD Primary Care Provider [phone] Encounter Details Date Type Department Care Team (Late st Contact Info) Description 10/25/2024 Telephone [facility] Cardiology [address] [facility] 8th [place] [address] [place] [phone] Benedict Fishman MD [address] [place] [address] Social History Tobacco Use Types Packs/Day Years [...] of Binge Drinking Not on file 06/2021 [place] Depression Scale Answer Date Recorded [place] Depression Scale Total 3 08/03/2021 The thought [...] on file Legal Sex Female 12:13 PM CHAIR FINISHER Gender Identity Female 01/05/2021 7:28 PM CHAIR FINISHER Sexual Orientation Straight 01/05/2021 7: 28 PM CHAIR FINISHER documented as of this encounter Plan of Treatment Not on file documented as of this encounter Visit Diagnoses Not on filedocumented in this encounter Care Teams Hand Thermal Cutter Relationship Specialty Start Date End Date Julián Patrick MD [address] [place] [id number] PCP - General Family Medicine 02/05/24 documented as of this encounter
--- NOTE | 2025-01-26 14:43 | ED.UPPEXIN ---
HPI - Extremity Injury (Upper) General Chief Complaint: Extremity Injury, Upper Stated Complaint: L hand injury Time Seen by Provider: 01/26/25 14:51 Source: patient Mode of arrival: ambulatory Limitations: no limitations History of Present Illness HPI narrative: Patient is a 24-year-old female who presents the ED with report of left thumb/hand pain. Patient reports she slipped and fell yesterday, and attempted to catch herself with her left hand. Pain to her left thumb, left thenar eminence region. Has bruising in this area. Denies numbness. Took Tylenol prior to arrival. Denies any other injuries from the fall. Denies head injury or LOC. Related Data Home Medications ?Medication ?Instructions ?Recorded ?Confirmed ?Last Taken ?Type hydroxyzine HCl 25 mg tablet mg 01/16/25 Unknown History Allergies Allergy/AdvReac Type Severity Reaction Status Date / Time No Known Allergies Allergy Verified 01/16/25 14:51 Review of Systems Review of Systems: All systems reviewed & are unremarkable except as noted in HPI. All systems reviewed & are unremarkable except as noted in HPI and below PMFSH Past Medical History Medical History PTSD (post-traumatic stress disorder) Anxiety Surgical History Surgical History S/P tonsillectomy No pertinent past surgical history Social History Social History Smoking status: Never smoker Alcohol intake: never Substance use: never Lack of Transportation: No Lack of Food: Never True Current Housing: I Have Housing Concerned About Future Housing: No Difficulty Paying Gas/Electric Bills: No Difficulty Paying for Meds: No Currently Unemployed: Decline to Answer Education: High School Diploma/GED Difficulty w/ Childcare or Family Care: No Living arrangements: with family Occupation/Education: student Gender identity (if verbalized by the patient): Female Sexual Orientation (if Verbalized by the Patient): Straight or Heterosexual Spiritual care concerns: No Exam Narrative: GENERAL: Well appearing, well-nourished, non-toxic, in no acute distress. HEAD: Normocephalic, atraumatic. RESPIRATORY: Airway patent, respirations nonlabored. CARDIOVASCULAR: Regular rate and rhythm. Radial pulses strong and easily palpable. MUSCULOSKELETAL: Moves all extremities. No gross deformities. Tenderness to palpation over left 1st MCP region. Some swelling and bruising in this region. Limited ROM of L thumb d/t pain. Sensation intact. SKIN: Warm, dry, normal color. NEURO: A&O X3. Speech clear. PSYCHIATRIC: Appropriate mood and affect. Normal interaction. Course Vital Signs Vital signs: Vital Signs Temperature 98.2 F 01/26/25 12:42 Pulse Rate 96 01/26/25 12:42 Respiratory Rate 16 01/26/25 12:42 Blood Pressure 128/84 01/26/25 12:42 Pulse Oximetry 99 01/26/25 12:42 Temperature 98.2 F 01/26/25 12:42 Pulse Rate 96 01/26/25 12:42 Respiratory Rate 16 01/26/25 12:42 Blood Pressure 128/84 01/26/25 12:42 Pulse Oximetry 99 01/26/25 12:42 MDM - Extremity Injury (Upper) MDM Narrative Medical decision making narrative: Patient?s injury is consistent with musculoskeletal etiology. No signs of neurologic or vascular compromise on physical examination. Compartments are soft without signs of compartment syndrome. XR L hand negative for fx. Pain is consistent with exam and injury. Discussed possibility ligamentous injury, gamekeeper's thumb. Will refer to Hand surgery. Patient placed in Elliott bandage in the ED. Advised to obtain sidm-dky-ebmvwjx thumb spica splint for stabilization. Discussed rice therapy. Patient is felt to be stable for discharge home and further outpatient management and treatment. Given return precautions. Discharged in stable condition. Medical Records Attestation: I reviewed the patient's medical records. Imaging Data Attestation: I personally reviewed and interpreted this imaging study as follows: Radiologist's impression: ITS Impressions Hand X-Ray 01/26/25 13:23 IMPRESSION: No acute osseous abnormality left hand. Discharge Plan Discharge Clinical Impression: Contusion of left hand Qualifiers: Encounter type: initial encounter Qualified Code(s): S60.222A - Contusion of left hand, initial encounter Left thumb sprain Qualifiers: Encounter type: initial encounter Sprain of finger site: interphalangeal joint Qualified Code(s): S63.622A - Sprain of interphalangeal joint of left thumb, initial encounter Patient Disposition: Home, Self-Care Condition: Stable Instructions: Antibiotic Form, Skier's Thumb (ED), Finger Sprain (ED) Additional Instructions: Follow-up with Hand surgery for further evaluation. Recommend obtaining nhcd-diu-qozdbuv thumb spica splint for support and stabilization of your hand/thumb. Recommend ice to hand, Tylenol and ibuprofen as needed for pain. Return to the ED if you experience worsening or severe symptoms, recurrent injury, numbness, or any other symptoms of concern. Patient Language: Armenian Prescriptions: No Action hydroxyzine HCl 25 mg tablet Follow-up/Referrals: Marian Rosario MD [Physician] - (PLASTIC/HAND SURGERY) Julián Patrick MD [Primary Care Provider] - Time of Disposition: 14:53
--- OUTSIDE RECORDS SUMMARY | 2025-01-26 16:33 | XMS_ITS | Clinical Summary ---
Author Organization [facility] Address [address] [place] [address] Care Team Providers Care Audit Spec Name Role Phone Vicenta Damian MD Unavailable Ronal Jane Primary Care Provider + Source Comments [facility],non-[facility] Affiliates and Associated Physician Practices is amultiple site organization consisting of ambulatory clinics and hospital sitesin [place], [place], [place] and [place]. This disclosure is being madepursuant to the Care Everywhere program and may not contain all information available regarding this patient. Last updated 18.[facility] Allergies No known active allergies Medications * [...] age to complete this topic Care Teams Audit Spec Relationship Specialty Start Date End Date Ronal Jane PA [address] [place] [phone] PCP - General 04/22/22 Vicenta Damian MD [address] [place] [address] [address] [place] [address] Pediatrics 12/10/17
--- OUTSIDE RECORDS SUMMARY | 2025-01-26 16:33 | XMS_ITS | Encounter Summary ---
Author Organization [facility] Address [address] [place] [address] Care Team Providers Care Emergency Medicine Medical Director Name Role Phone Vicenta Damian MD Primary Care Provider [phone] Vicenta Damian MD Unavailable [phone] Ronal Jane Primary Care Provider + Encounter Details Date Type Department Care Team (Late st Contact Info) Description 04/18/2022 Lab Requisition [facility] [address] [place] [address] Stanley Caicedo MD [address] [place] [id number] Illness, unspecified Social History Tobacco Use Types [...] CDT) Case Report Surgical Pathology Report Case: [id number] Authorizing Provider: Stanley Caicedo MD Collected: 04/16/2022 10:47 AM Ordering Location: [facility] Received: 04/18/2022 12:37 PM Pathologist: [...] CD30: Stains rare scattered immunoblasts, no Hodgkin Ffkq-Utzswkdab-xgat cells are seen COMMENT: The tissue is [...] 5 slide(s) and 1 block (A1) labeled [id number] along with a copy of the outside pathology report. The materials originate from [facility], [address] [place] [address]. All original materials are returned to the referring institution, along with a copy of our final report. 04/20/2022 1:11 PM CDT [facility] Disclaimer The performance characteristics of all immunohistochemical and indirect immunofluorescence stains (if any) cited in this report were determined by the Histopathology Laboratory of [facility]. Some of these tests were [...] attending (teaching) pathologist. 04/20/2022 1:11 PM CDT [facility] Embedded Images 04/20/2022 1:11 PM CDT [facility] Pathology/Cytolo gy BIOPSY OF LYMPH NODE / Unknown 04/16/2022 10:47 AM CDT 04/18/2022 12:37 PM CDT Stanley Caicedo MD LAB - PATHOLOGY/CYTO LOGY ORDERABLES Performing Organization Address City/State/[facility] Co de Phone Number [facility] [address] [phone] documented in this encounter Visit Diagnoses Diagnosis Illness, unspecified documented in this encounter Care Teams Emergency Medicine Medical Director Relationship Specialty Start Date End Date Vicenta Damian MD [facility] [address] [address] PCP - General Pediatrics 12/10/17 04/21/22 Ronal Jane PA [address] [place] [phone] PCP - General 04/22/22 Vicenta Damian MD [facility] [address] [place] [id number] Pediatrics 12/10/17 documented as of this encounter
--- OUTSIDE RECORDS SUMMARY | 2025-01-26 16:33 | XMS_ITS | Encounter Summary ---
Author Organization [facility] Address [address] [place] [address] Phone Care Team Providers Care Accountant Controller Name Role Phone Julián Patrick MD Primary Care Provider [phone] Encounter Details Date Type Department Care Team (Late st Contact Info) Description 10/25/2024 Telephone [facility] Cardiology [address] [facility] Advanced Medicine 8th [place] [address] [place] [phone] Benedict Fishman MD [address] [place] [address] Social History Tobacco Use Types Packs/Day Years [...] of Binge Drinking Not on file 06/2021 Gamerco Depression Scale Answer Date Recorded Gamerco Depression Scale Total 3 08/03/2021 The thought [...] on file Legal Sex Female 12:13 PM WAITER AND CASHIER Gender Identity Female 01/05/2021 7:28 PM WAITER AND CASHIER Sexual Orientation Straight 01/05/2021 7: 28 PM WAITER AND CASHIER documented as of this encounter Plan of Treatment Not on file documented as of this encounter Visit Diagnoses Not on filedocumented in this encounter Care Teams Accountant Controller Relationship Specialty Start Date End Date Julián Patrick MD [address] [place] [address] PCP - General Family Medicine 02/05/24 documented as of this encounter
--- OUTSIDE RECORDS SUMMARY | 2025-01-26 16:33 | XMS_ITS | Clinical Summary ---
Author Organization [facility] Address [address] [place] [phone] Care Team Providers Care Body Joiner Name Role Phone Julián Patrick MD Primary Care Provider Allergies No known active allergies Medications melatonin [...] Department Care Team Description 11/04/2024 1:45 PM CUSTOMER SERVICE OFFICER - 11/04/2024 11:59 PM CUSTOMER SERVICE OFFICER Hospital Encounter [facility] Cardiac Diagnostic Lab [address] [phone] Syncope, unspecified syncope type Discharge Disposition: Discharge [...] of Binge Drinking Not on file 06/2021 Mckenna Depression Scale Answer Date Recorded Mckenna Depression Scale Total 3 08/03/2021 The thought [...] on file Legal Sex Female 12:13 PM CUSTOMER SERVICE OFFICER Gender Identity Female 01/05/2021 7:28 PM CUSTOMER SERVICE OFFICER Sexual Orientation Straight 01/05/2021 7: 28 PM CUSTOMER SERVICE OFFICER Obstetrics History Para Term AB IAB SAB [...] RALPH Stanton , Bebeto Rodriguez MD Delivery Location:[facility] ([facility]) Last Filed Vital Signs Vital Sign Reading Time Taken Comments Blood Pressure 122/80 10/25/2024 2:21 PM CUSTOMER SERVICE OFFICER Pulse 79 10/25/2024 2:21 PM CUSTOMER SERVICE OFFICER Temperature 36.8 C (98.3 F) 08/21/2024 12:03 PM CDT Respiratory Rate 18 10/25/2024 2:21 PM CUSTOMER SERVICE OFFICER Oxygen Saturation 99% 10/25/2024 2:21 PM CUSTOMER SERVICE OFFICER Inhaled Oxygen Concentration - - Weight 54.4 kg (120 lb) 10/25/2024 2:21 PM CUSTOMER SERVICE OFFICER Height 154.9 cm (5' 1 ) 10/25/2024 2:21 PM CUSTOMER SERVICE OFFICER Body Mass Index 22.67 10/25/2024 2:21 PM CUSTOMER SERVICE OFFICER Plan of Treatment Health Maintenance Due Date [...] DOPPLER/CF WO CONTRAST Routine 11/04/2024 2:38 PM CUSTOMER SERVICE OFFICER Syncope, unspecified syncope type HEPATITIS C ANTIBODY Routine 11/15/2020 3:35 PM CUSTOMER SERVICE OFFICER Positive test from Last 3 Months or Most Recently Relevant to Health Maintenance Results * TRANSTHORACIC ECHO (TTE) COMPLETE W DOPPLER/CF WO CONTRAST (11/04/2024 2:38 PM CUSTOMER SERVICE OFFICER) LV EF 60 % CARDIOREPORT Anatomical Region Laterality Modality Ultrasound 11/04/2024 1:45 PM CUSTOMER SERVICE OFFICER Narrative 11/05/2024 9:38 AM CUSTOMER SERVICE OFFICER Patient name: Marce Fan Date of test: 11/04/2024 Type of test: TTE w/Doppler [facility] #: [id number] Date of : 2000 (F) Creping Machine Operator Helper: Ernestine Jay RDCS Referring Physician: BENEDICT PERDOMO MD Contrast Agent: Contrast Administered by: Supervised/Interpreted by: Wilder Farr MD Diagnosis: Location: [facility] Reason for test: syncope MV [...] 2=Hypo 3=Akinetic 4=Dyskin./Aneurysm 0=Not visualized) Parasternal Long [place]:MAS=1 BAS=1 MIL=1 SRINIVASA=1 Parasternal Short [place]:MAS=1 MIS=1 MO=1 MIL=1 MAL=1 MA=1 Apical 4 Chambers:=1 MIS=1 BIS=1 BAL=1 MAL=1 AL=1 AC=1 Apical 2 Chambers:AI=1 MO=1 BI=1 BA=1 MA=1 AA=1 AC=1 LV Global Longitudinal Strain: RV Global Longitudinal Strain: LV Function: Normal LV Ejection Fraction, (EF=54-74%) RV Function: Normal Septal Motion: Normal Pericardial Effusion: none seen Atrial Septum: Normal DOPPLER/COLOR FLOW DOPPLER RESULTS: Diastolic Function: Normal Tricuspid Valve: No TR Pulmonic Valve: No NC AV Regurgitation: No AR seen AV Stenosis: no AV Area: cm2 AV Pressure Gradient (mmHg): Mean: 0, Peak:0 MV Regurgitation: Trace MR MV Stenosis: no MS MV Area: cm2 MV Pressure Gradient (mmHg): Mean: 0 MV ERO: cm Regurg. Vol.: ml/beat Regurg. Frac.: % PA Pressure: mmHg DOPPLER/COLOR FOLOW DOPPLER COMMENTS: No AR seen, Trace MR, no , no MS, No TR, No NC. Diastolic function: Normal SUMMARY: LA and RA [...] MD By signing this report, the attending php lamp developer certifies that he or she has personally supervised and interpreted the echocardiogram and has reviewed and or edited and agrees with the written comments contained within the report. Procedure Note Wilder Farr MD - 11/05/2024 Patient name: Marce Fan Date of test: 11/04/2024 Type of test: TTE w/Doppler [facility] #: 0 Date of : 2000 (F) Creping Machine Operator Helper: Ernestine Jay TAWANDA Referring Physician: BENEDICT PERDOMO MD Contrast Agent: Contrast Administered by: Supervised/Interpreted by: Wilder Farr MD Diagnosis: Location: [facility] Reason for test: syncope MV [...] 2=Hypo 3=Akinetic 4=Dyskin./Aneurysm 0=Not visualized) Parasternal Long [place]:MAS=1 BAS=1 MIL=1 SRINIVASA=1 Parasternal Short [place]:MAS=1 MIS=1 MO=1 MIL=1 MAL=1 MA=1 Apical 4 Chambers:=1 MIS=1 BIS=1 BAL=1 MAL=1 AL=1 AC=1 Apical 2 Chambers:AI=1 MO=1 BI=1 BA=1 MA=1 AA=1 AC=1 LV Global Longitudinal Strain: RV Global Longitudinal Strain: LV Function: Normal LV Ejection Fraction, (EF=54-74%) RV Function: Normal Septal Motion: Normal Pericardial Effusion: none seen Atrial Septum: Normal DOPPLER/COLOR FLOW DOPPLER RESULTS: Diastolic Function: Normal Tricuspid Valve: No TR Pulmonic Valve: No NC AV Regurgitation: No AR seen AV Stenosis: no AV Area: cm2 AV Pressure Gradient (mmHg): Mean: 0, Peak:0 MV Regurgitation: Trace MR MV Stenosis: no MS MV Area: cm2 MV Pressure Gradient (mmHg): Mean: 0 MV ERO: cm Regurg. Vol.: ml/beat Regurg. Frac.: % PA Pressure: mmHg DOPPLER/COLOR FOLOW DOPPLER COMMENTS: No AR seen, Trace MR, no , no MS, No TR, No NC. Diastolic function: Normal SUMMARY: LA and RA [...] MD By signing this report, the attending php lamp developer certifies that he or she has personally supervised and interpreted the echocardiogram and has reviewed and or edited and agrees with the written comments contained within the report. us Benedict Perdomo MD CV ECHO PROCEDURES Final Result * Hepatitis C antibody (11/15/2020 3:35 PM CUSTOMER SERVICE OFFICER) Hep C Ab NONREACT NONREACTIVE [facility] Comment: Siemens SuperLikersaurXP using LEIGH ANN (chemiluminescent immunoassay) technology. NONREACTIVE: [...] method. Blood specimen (specimen) 11/15/2020 3:35 PM CUSTOMER SERVICE OFFICER 11/15/2020 3:40 PM CUSTOMER SERVICE OFFICER Narrative Resulting Agency Comment CLI us [facility] MICROBIOLOGY - GENE RAL ORDERABLES Final Result [facility] [address] [place] [address], [facility] [phone] from Last 3 Months or Most Recently Relevant to Health Maintenance Insurance [facility] MRA Advance Directives For more information, please contact: [phone] * Full Code (Latest Code Status on File) Date Activated Date Inactivated Comments 06/18/2021 12:53 AM 06/20/2021 6:49 PM * Full Code Date Activated Date Inactivated Comments 06/17/2021 10:56 AM 06/18/2021 12:53 AM Full CPR in case of cardiopulmonary arrest Care Teams Body Joiner Relationship Specialty Start Date End Date Julián Patrick MD [address] [id number] PCP - General Family Medicine 02/05/24
--- OUTSIDE RECORDS SUMMARY | 2025-01-26 16:33 | XMS_ITS | Referral Summary ---
Author Organization [facility] the [facility] Building Address [address] [place] [id number] Care Team Providers Care Business Change Manager Name Role Phone Julián Patrick MD Primary Care Provider Encounters Date Type Department Care Team Description 11/04/2024 1:45 PM COOLING PAN TENDER - 11/04/2024 11:59 PM COOLING PAN TENDER Hospital Encounter [facility] Cardiac Diagnostic Lab [address] [place] [id number] Syncope, unspecified syncope type Discharge Disposition: Discharge [...] of Binge Drinking Not on file 06/2021 [place] Depression Scale Answer Date Recorded [place] Depression Scale Total 3 08/03/2021 The thought [...] on file Legal Sex Female 12:13 PM COOLING PAN TENDER Gender Identity Female 01/05/2021 7:28 PM COOLING PAN TENDER Sexual Orientation Straight 01/05/2021 7: 28 PM COOLING PAN TENDER Last Filed Vital Signs Vital Sign Reading Time Taken Comments Blood Pressure 122/80 10/25/2024 2:21 PM COOLING PAN TENDER Pulse 79 10/25/2024 2:21 PM COOLING PAN TENDER Temperature 36.8 C (98.3 F) 08/21/2024 12:03 PM CDT Respiratory Rate 18 10/25/2024 2:21 PM COOLING PAN TENDER Oxygen Saturation 99% 10/25/2024 2:21 PM COOLING PAN TENDER Inhaled Oxygen Concentration - - Weight 54.4 kg (120 lb) 10/25/2024 2:21 PM COOLING PAN TENDER Height 154.9 cm (5' 1 ) 10/25/2024 2:21 PM COOLING PAN TENDER Body Mass Index 22.67 10/25/2024 2:21 PM COOLING PAN TENDER Plan of Treatment Not on file Procedures Procedure Name Priority Date/Time Associated Diagnosis Comments TRANSTHORACIC ECHO (TTE) COMPLETE W DOPPLER/CF WO CONTRAST Routine 11/04/2024 2:38 PM COOLING PAN TENDER Syncope, unspecified syncope type HEPATITIS C ANTIBODY Routine 11/15/2020 3:35 PM COOLING PAN TENDER Positive test from Last 3 Months or Most Recently Relevant to Health Maintenance Results * TRANSTHORACIC ECHO (TTE) COMPLETE W DOPPLER/CF WO CONTRAST (11/04/2024 2:38 PM COOLING PAN TENDER) LV EF 60 % CARDIOREPORT Anatomical Region Laterality Modality Ultrasound 11/04/2024 1:45 PM COOLING PAN TENDER Narrative 11/05/2024 9:38 AM COOLING PAN TENDER Patient name: Marce Fan Date of test: 11/04/2024 Type of test: TTE w/Doppler Hospital #: 0 Date of : 2000 (F) [place] Bottom Maker: Ernestine Jay RDCS Referring Physician: BENEDICT PERDOMO MD Contrast Agent: Contrast Administered by: Supervised/Interpreted by: Wilder Farr MD Diagnosis: Location: [place] [facility] Reason for test: syncope MV [...] 2=Hypo 3=Akinetic 4=Dyskin./Aneurysm 0=Not visualized) Parasternal [place]:MAS=1 BAS=1 MIL=1 SRINIVASA=1 Parasternal [place]:MAS=1 MIS=1 NH=1 MIL=1 MAL=1 MA=1 Apical 4 Chambers:=1 MIS=1 BIS=1 BAL=1 MAL=1 AL=1 AC=1 Apical 2 Chambers:AI=1 NH=1 BI=1 BA=1 MA=1 AA=1 AC=1 LV Global Longitudinal Strain: RV Global Longitudinal Strain: LV Function: Normal LV Ejection Fraction, (EF=54-74%) RV Function: Normal Septal Motion: Normal Pericardial Effusion: none seen Atrial Septum: Normal DOPPLER/COLOR FLOW DOPPLER RESULTS: Diastolic Function: Normal Tricuspid Valve: No TR Pulmonic Valve: No NY AV Regurgitation: No AR seen AV Stenosis: no AV Area: cm2 AV Pressure Gradient (mmHg): Mean: 0, Peak:0 MV Regurgitation: Trace MR MV Stenosis: no MS MV Area: cm2 MV Pressure Gradient (mmHg): Mean: 0 MV ERO: cm Regurg. Vol.: ml/beat Regurg. Frac.: % PA Pressure: mmHg DOPPLER/COLOR FOLOW DOPPLER COMMENTS: No AR seen, Trace MR, no , no MS, No TR, No NY. Diastolic function: Normal SUMMARY: LA and RA [...] MD By signing this report, the attending hospital technician certifies that he or she has personally supervised and interpreted the echocardiogram and has reviewed and or edited and agrees with the written comments contained within the report. Procedure Note Wilder Farr MD - 11/05/2024 Patient name: Marce Fan Date of test: 11/04/2024 Type of test: TTE /Doppler [facility] #: 0 Date of : 2000 (F) [place] Bottom Maker: Ernestine Jay TAWANDA Referring Physician: BENEDICT PERDOMO MD Contrast Agent: Contrast Administered by: Supervised/Interpreted by: Wilder Farr MD Diagnosis: Location: [facility] Reason for test: syncope MV Structure: Normal, [...] 2=Hypo 3=Akinetic 4=Dyskin./Aneurysm 0=Not visualized) Parasternal [place]:MAS=1 BAS=1 MIL=1 SRINIVASA=1 Parasternal [place]:MAS=1 MIS=1 NH=1 MIL=1 MAL=1 MA=1 Apical 4 Chambers:=1 MIS=1 BIS=1 BAL=1 MAL=1 AL=1 AC=1 Apical 2 Chambers:AI=1 NH=1 BI=1 BA=1 MA=1 AA=1 AC=1 LV Global Longitudinal Strain: RV Global Longitudinal Strain: LV Function: Normal LV Ejection Fraction, (EF=54-74%) RV Function: Normal Septal Motion: Normal Pericardial Effusion: none seen Atrial Septum: Normal DOPPLER/COLOR FLOW DOPPLER RESULTS: Diastolic Function: Normal Tricuspid Valve: No TR Pulmonic Valve: No NY AV Regurgitation: No AR seen AV Stenosis: no AV Area: cm2 AV Pressure Gradient (mmHg): Mean: 0, Peak:0 MV Regurgitation: Trace MR MV Stenosis: no MS MV Area: cm2 MV Pressure Gradient (mmHg): Mean: 0 MV ERO: cm Regurg. Vol.: ml/beat Regurg. Frac.: % PA Pressure: mmHg DOPPLER/COLOR FOLOW DOPPLER COMMENTS: No AR seen, Trace MR, no , no MS, No TR, No NY. Diastolic function: Normal SUMMARY: LA and RA [...] MD By signing this report, the attending hospital technician certifies that he or she has personally supervised and interpreted the echocardiogram and has reviewed and or edited and agrees with the written comments contained within the report. us Benedict Perdomo MD CV ECHO PROCEDURES Final Result * Hepatitis C antibody (11/15/2020 3:35 PM COOLING PAN TENDER) Hep C Ab NONREACT NONREACTIVE [facility] Comment: Siemens myParcelDeliveryaurXP using LEIGH ANN (chemiluminescent immunoassay) technology. NONREACTIVE: [...] method. Blood specimen (specimen) 11/15/2020 3:35 PM COOLING PAN TENDER 11/15/2020 3:40 PM COOLING PAN TENDER Narrative Resulting Agency Comment CLI us Cherelle Gaston [facility] MICROBIOLOGY - GENE RAL ORDERABLES Final Result [facility] [address] [place] [address], [facility] [phone] from Last 3 Months or Most Recently Relevant to Health Maintenance Insurance [facility] M[facility] Advance Directives For more information, please contact: [phone] * Full Code (Latest Code Status on File) Date Activated Date Inactivated Comments 06/18/2021 12:53 AM 06/20/2021 6:49 PM * Full Code Date Activated Date Inactivated Comments 06/17/2021 10:56 AM 06/18/2021 12:53 AM Full CPR in case of cardiopulmonary arrest Care Teams Business Change Manager Relationship Specialty Start Date End Date Julián Patrick MD [address] [place] [id number] PCP - General Family Medicine 02/05/24
== END 2025-01-26 15:41 | disposition home or self-care (01) ==
LOC: ANHED 14:59
PROVIDERS: Emergency Provider Physician Assistant; PCP Family Medicine
DX: S60.222A Contusion of left hand, initial encounter (principal); S63.622A Sprain of interphalangeal joint of left thumb, initial encounter; F41.9 Anxiety disorder, unspecified; W01.0XXA Fall on same level from slipping, tripping and stumbling without subsequent striking against object, initial encounter
CPT/HCPCS: 73130; 99283

== ENCOUNTER 2025-07-03 18:27 | Emergency (ER) | payer OTHER, SELFPAY ==
--- NOTE | ~2025-07-03 | XR_ITS ---
XR foot LT min 3V 07/03/2025 18:45 INDICATION: Left ankle pain PROCEDURE: 4 views left ankle COMPARISON: No prior studies for comparison. FINDINGS: Fracture, dislocation or subluxation is not identified. The soft tissues appear within normal limits. No foreign bodies are identified. IMPRESSION: 1: NO ACUTE BONE OR JOINT ABNORMALITY IDENTIFIED. Reviewed, dictated and finalized at location O.
--- NOTE | 2025-07-03 18:42 | PC.NURSE ---
1815 PHLEBOTOMY SERVICES TECHNICIAN in room for patient evaluation; after consideration, eye irrigation not done-call will be made to [facility] for referral.
[2025-07-03 18:46] VITALS: BP 146/84; PULSE 97; RESP 16; TEMP 36.8; O2SAT 98
--- NOTE | 2025-07-03 19:22 | ED_ITS ---
HPI - General Adult General Chief complaint: Extremity Injury, Lower Stated complaint: L FOOT INJURY Source: patient Mode of arrival: ambulatory Limitations: no limitations History of Present Illness HPI narrative: Patient presents for evaluation of left foot pain. Symptom onset yesterday. She was sitting with her legs crossed and her leg went to sleep. When she got up she did not realize her leg was asleep. She fell and landed and her left foot landed beneath her. She now has constant pain in the affected area, worse with weightbearing and movement. She rates her pain 5-7/10 in severity. She denies any paresthesias. She has not taken any medication to assist with her symptoms. Related Data Home Medications ?Medication ?Instructions ?Recorded ?Confirmed ?Last Taken ?Type No Home Medications 07/03/25 07/03/25 U nknown History Allergies Allergy/AdvReac Type Severity Reaction Status Date / Time No Known Allergies Allergy Verified 07/03/25 18:49 Review of Systems Review of Systems: CONSTITUTIONAL: Denies fever, chills, or sweats. EYES: Denies visual changes, redness, or discharge. ENT: Denies rhinorrhea, congestion, sore throat, or otalgia. CARDIOVASCULAR: Denies chest pain, palpitations, or edema. RESPIRATORY: Denies cough or dyspnea. GASTROINTESTINAL: Denies abdominal pain, nausea, vomiting, or diarrhea. GENITOURINARY: Denies dysuria or hematuria. SKIN: Denies rash or itching. MUSCULOSKELETAL: Reports left foot pain NEUROLOGIC: Denies headache, numbness, dizziness, or weakness. PSYCHIATRIC: Denies anxiety or depression. [facility] Past Medical History Medical History Skier's thumb PTSD (post-traumatic stress disorder) Anxiety Surgical History Surgical History S/P tonsillectomy No pertinent past surgical history Family History Family History Mother Family history non-contributory Social History Social History Smoking status: Current every day smoker Tobacco type: e-cigarettes/vaping Alcohol intake: never Substance use: never Lack of Transportation: No Lack of Food: Never True Current Housing: I Have Housing Concerned About Future Housing: No Difficulty Paying Gas/Electric Bills: No Difficulty Paying for Meds: No Currently Unemployed: Decline to Answer Education: High School Diploma/GED Difficulty w/ Childcare or Family Care: No Living arrangements: with family Occupation/Education: student Gender identity (if verbalized by the patient): Female Sexual Orientation (if Verbalized by the Patient): Straight or Heterosexual Spiritual care concerns: No Course Course Emergency Course: This is a 25-year-old female who presented for evaluation foot pain. x-ray negative for fracture. Exam consistent with strain. Provided with postop shoe and crutches. NSAIDs for pain. Advised on RICE therapy. Follow-up with primary provider. Go to the ER worsening symptoms. Patient in agreement with plan of care Level of Care: Express Care Visit Vital Signs Vital signs: Vital Signs Temperature 36.8 C 07/03/25 18:46 Pulse Rate 97 07/03/25 18:46 Respiratory Rate 16 07/03/25 18:46 Blood Pressure 146/84 H 07/03/25 18:46 Pulse Oximetry 98 07/03/25 18:46 Temperature 36.8 C 07/03/25 18:46 Pulse Rate 97 07/03/25 18:46 Respiratory Rate 16 07/03/25 18:46 Blood Pressure 146/84 H 07/03/25 18:46 Pulse Oximetry 98 07/03/25 18:46 Medical Decision Making Vital Signs Vital Signs: Vital Signs Temperature 36.8 C 07/03/25 18:46 Pulse Rate 97 07/03/25 18:46 Respiratory Rate 16 07/03/25 18:46 Blood Pressure 146/84 H 07/03/25 18:46 Pulse Oximetry 98 07/03/25 18:46 Temperature 36.8 C 07/03/25 18:46 Pulse Rate 97 07/03/25 18:46 Respiratory Rate 16 07/03/25 18:46 Blood Pressure 146/84 H 07/03/25 18:46 Pulse Oximetry 98 07/03/25 18:46 Imaging Data Radiologist's impression: XR foot LT min 3V 07/03/2025 18:45 INDICATION: Left ankle pain PROCEDURE: 4 views left ankle COMPARISON: No prior studies for comparison. FINDINGS: Fracture, dislocation or subluxation is not identified. The soft tissues appear within normal limits. No foreign bodies are identified. IMPRESSION: 1: NO ACUTE BONE OR JOINT ABNORMALITY IDENTIFIED. Discharge Plan Discharge Clinical Impression: Muscle strain of left foot Patient Disposition: Home Condition: Stable Instructions: Antibiotic Form, Muscle Strain (DC) Additional Instructions: Ibuprofen should help with pain and swelling Wear your postop shoe Use crutches as needed Apply ice to help with pain and swelling Elevate your left lower extremity when not mobilize Patient Language: New Zealander Prescriptions: No Action No Home Medications Follow-up/Referrals: Julián Patrick MD [Primary Care Provider, [facility]] Time of Disposition: 20:01
== END 2025-07-03 20:07 | disposition home or self-care (01) ==
PROVIDERS: Emergency Provider Nurse Practitioner; PCP Family Medicine
DX: S96.912A Strain of unspecified muscle and tendon at ankle and foot level, left foot, initial encounter (principal); W19.XXXA Unspecified fall, initial encounter
CPT/HCPCS: 73630; 99213; G0463

== ENCOUNTER 2025-11-06 10:02 | Emergency (ER) | payer OTHER, SELFPAY ==
--- NOTE | 2025-11-06 10:05 | ED_ITS ---
HPI - URI/Sore Throat General Chief Complaint: Upper Respiratory Infection Stated Complaint: flu symptoms Time Seen by Provider: 11/06/25 10:05 Source: patient Mode of arrival: ambulatory Limitations: no limitations History of Present Illness HPI Narrative: patient is a 25-year-old female who presents with headache, body ache, sore throat, fever for 2 days. Reports nausea vomiting started last night. Has taken Mucinex and Tylenol. Related Data Allergies Allergy/AdvReac Type Severity Reaction Status Date / Time No Known Allergies Allergy Verified 11/06/25 10:05 Review of Systems Review of Systems: All systems reviewed & are unremarkable except as noted in HPI and below Constitutional: Constitutional: Denies chills, Denies fatigue, Reports fever(s), Reports headache(s), Denies malaise and Denies weakness Eyes: Eyes: Denies blurry vision, Denies itchy eyes and Denies loss of vision ENT: Denies otalgia, Reports headache(s), Denies nasal congestion, Denies sinus pain and Reports sore throat Cardiovascular: Cardiovascular: Denies chest pain, Denies irregular heart rhythm and Denies dyspnea Respiratory: Respiratory: Denies cough and Denies dyspnea Gastrointestinal: Gastrointestinal: Denies abdominal pain, Denies diarrhea, Reports nausea and Reports vomiting Musculoskeletal: Musculoskeletal: Denies back pain, Reports myalgias and Denies arthralgias Integumentary/Breasts: Skin/Breast: Denies pruritus and Denies rash Neurologic: Denies headache(s), Denies loss of vision and Denies weakness Psychiatric: Psychiatric: Reports no additional psychiatric complaints Endocrine: Endocrine: Denies fatigue Allergic/Immunologic: Allergic/Immunologic: Denies itchy eyes PMFSH Past Medical History Medical History Skier's thumb PTSD (post-traumatic stress disorder) Anxiety Surgical History Surgical History S/P tonsillectomy No pertinent past surgical history Family History Family History Mother Family history non-contributory Social History Social History (Reviewed 07/03/25 @ 19:26 by Hansel Negrete, LABORATORY HELPER, WOOD PATTERNMAKER APPRENTICE) Smoking status: Current every day smoker Tobacco type: e-cigarettes/vaping Alcohol intake: never Substance use: never Lack of Transportation: No Lack of Food: Never True Current Housing: I Have Housing Concerned About Future Housing: No Difficulty Paying Gas/Electric Bills: No Difficulty Paying for Meds: No Currently Unemployed: Decline to Answer Education: High School Diploma/GED Difficulty w/ Childcare or Family Care: No Living arrangements: with family Occupation/Education: student Gender identity (if verbalized by the patient): Female Sexual Orientation (if Verbalized by the Patient): Straight or Heterosexual Spiritual care concerns: No Comments At time of signature, agree with nursing past medical, surgical, social and family history. There is no relevant family history pertinent to the presenting complaint. Exam Const: General: cooperative, healthy appearing, comfortable, no acute distress and well nourished Nutritional Appearance: well nourished Orientation/consciousness: patient oriented x3 Limitations: no limitations HENMT: Head: normal to inspection, normocephalic and atraumatic Ears: hearing grossly normal bilaterally, external ears normal, TM's normal bilaterally, EAC's normal and no periauricular adenopathy Face/Nose/Sinus: Normal external nose present, Abnormal mucous membranes and turbinates present erythematous bilateral and diffuse, normal facial exam, sinuses nontender and face symmetric Face and sinus: normal facial exam, sinuses nontender and face symmetric Mouth: Yes Normal oral and palatal mucosa present, Yes lip normal, Yes tongue normal, Yes Normal salivary glands and ducts present, Yes oropharynx normal and Yes moist mucous membranes Teeth and gingiva: dentition normal Throat: posterior oropharynx normal, tonsils normal and uvula midline Eyes: General: appearance normal, both eyes and all related structures Alignment and Position: alignment normal and position normal Periorbital: periorbital findings normal Eyelids: eyelids normal Pupils: Equal, round and reactive pupils present Neck: Neck: normal visual inspection, full ROM, no lymphadenopathy and supple Chest: Chest palpation & inspection: normal inspection of the chest and normal palpation of entire chest wall Resp: Effort & Inspection: normal respiratory effort and able to speak in complete sentences Auscultation: clear to auscultation bilaterally, no crackles, no rales, no rhonchi and no wheezes Cardio: Rate: tachycardic Rhythm: regular rhythm Heart sounds: S1 normal heart sound present and S2 normal heart sound present GI: Inspection: normal to inspection Skin: General skin exam: normal color and no rashes or lesions noted Neuro: General: patient oriented x3 and moves all extremities Cranial nerves: Yes Equal, round and reactive pupils present Speech: normal speech Gait exam (Neuro): Normal gait present Extrem: General: normal to inspection, full ROM and no edema Psych: Appearance: grossly normal and well kempt Mental Status: mental status grossly normal Speech and movement: Normal speech and movement present Affect: normal affect Attitude: cooperative Thought process: Normal thought process present Course Course Emergency Course: Patient is aware of diagnosis, understands and agrees to treatment plan. Anticipatory guidance given. Patient agrees to follow-up as directed and is aware of reasons to seek care at the emergency department. Portions of this record may have been created with voice recognition software Level of Care: Express Care Visit Vital Signs Vital signs: Vital Signs Temperature 37.9 C H 11/06/25 10:17 Pulse Rate 120 H 11/06/25 10:17 Respiratory Rate 20 11/06/25 10:17 Blood Pressure 128/51 L 11/06/25 10:17 Pulse Oximetry 99 11/06/25 10:17 Oxygen Delivery Room Air 11/06/25 10:17 Temperature 37.9 C H 11/06/25 10:17 Pulse Rate 120 H 11/06/25 10:17 Respiratory Rate 20 11/06/25 10:17 Blood Pressure 128/51 L 11/06/25 10:17 Pulse Oximetry 99 11/06/25 10:17 Oxygen Delivery Room Air 11/06/25 10:17 MDM MDM Narrative Medical decision making narrative: Rapid COVID, strep were negative. Positive for influenza A Pt well hydrated appearing, in no respiratory distress, hemodynamically stable. Recommend supportive care. The patient is stable at time of discharge the clinical impression was discussed and the patient was given the opportunity to ask questions, which were addressed as completely as possible given the information available at present. Anticipatory guidance and return to care precautions were discussed and the importance of primary care follow-up was stressed and encouraged. The patient voiced understanding of the plan, indications to return, and the need for follow-up. Exam findings show no acute concerns or changes Patient is appropriate for outpatient treatment and follow-up. Differential Diagnosis Differential Diagnosis: Differential diagnosis considered: Holloway virus, strep pharyngitis, allergic rhinitis, upper respiratory tract infection, sinusitis, rhinosinusitis, nasopharyngitis. viral pharyngitis, otitis media, otitis externa, otitis effusion, foreign body, cerumen impaction, viral syndrome, and influenza. Medical Records I have reviewed the following patient records and this information was taken into consideration when formulating the assessment and plan.: previous clinic visits Lab Data MDM Lab Attestation statement: I personally reviewed the patient's lab results. Labs: Lab Results 11/06/25 Range/Units 10:14 POC Influenza A Ag Positive (Negative) POC Influenza B Ag Negative (Negative) POC SARS CoV-2 Ag Negative (Negative) POC Grp A Strep Screen Negative (Negative) Discharge Plan Discharge Clinical Impression: Influenza Patient Disposition: Home Condition: Stable Instructions: Influenza (ED) Additional Instructions: Were positive for influenza A. Your Covid is negative Your symptoms are due to a viral illness, which is not treated with antibiotics. Viral symptoms can be present for up to a few weeks. -For fever/pain, you may take: Tylenol 650-1000mg by mouth every 4-6 hours. Do not exceed 4000mg in 24 hours. Advil (Ibuprofen) 600 mg by mouth every 6 hours. Do not exceed 2400mg in 24 hours. 8 AM: Tylenol 11 AM: Ibuprofen 2 PM: Tylenol 5 PM: Ibuprofen 8 PM: Tylenol 11 PM: Ibuprofen 2 AM: Tylenol 5 AM: Ibuprofen -Antihistamine medication such as Benadryl/Zyrtec at night and Claritin/Kaylin during the day can help improve symptoms. -Use Flonase twice a day for 5 days then daily to help reduce the inflammation and dry up your sinuses. -You can also use Sudafed behind the pharmacy counter(12 or 24 hour). Be sure to drink plenty of water with these medications at least 8 ounces with every dose and it is important to drink 8 to 10 glasses of water per day. Water is a natural decongestant -Eat and drink things that are easy to swallow, like tea or soup, or popsicles. -Oral rinses such as: Salt water gargles and/or may use topical anesthetic (eg. Chloraseptic spray) or lozenges to relieve dryness or throat pain). -Frequent hand washing or hand fire code inspector is one of the best ways to prevent spread of infection. -Using a vaporizer or humidifier at night will also help thin secretions and help with coughing up phlegm. -Follow up with primary care provider in 3-5 days if condition is not improving - For new or worsening symptoms go directly to the nearest ER Patient Language: Welsh Prescriptions: New ondansetron 4 mg tablet,disintegrating 4 mg PO Q6-8H PRN (Reason: nausea and vomiting) Qty: 7 0RF Follow-up/Referrals: Julián Patrick MD [Primary Care Provider, Family Practice] - 3 Days Time of Disposition: 11:02
[2025-11-06 10:17] VITALS: BP 128/51; PULSE 120; RESP 20; TEMP 37.9; O2SAT 99
[2025-11-06 10:34] LABS: EDCOVIDSCREEN Negative (Negative); EDINFLUASCREEN Positive (Negative); EDINFLUBSCREEN Negative (Negative); EDSTREPNEGPOS1 Negative (Negative)
== END 2025-11-06 11:05 | disposition home or self-care (01) ==
PROVIDERS: Emergency Provider Nurse Practitioner Family; PCP Family Medicine
DX: J10.1 Influenza due to other identified influenza virus with other respiratory manifestations (principal); Z20.822 Contact with and (suspected) exposure to COVID-19; F17.290 Nicotine dependence, other tobacco product, uncomplicated
CPT/HCPCS: 87426; 87804; 87880; 99213; G0463